=== PATIENT | female | born 1965 | race American Indian/Alaskan Native ===

== ENCOUNTER 2018-01-12 23:20 | Inpatient (IN) | payer MEDICARE ==
[2018-01-13] MEDS ORDERED: NACL 0.9% 1000 ML IV ONE (00:05)
--- NOTE | 2018-01-13 00:10 | Emergency Department Report ---
HPI - General Chief Complaint: Dyspnea/Respdistress Time Seen by Provider: 01/13/18 00:03 - HPI HPI: Room 3 The patient is a 52-year-old female presenting with a chief complaint of shortness of breath. The patient states she's had suicidal ideation since yesterday and discharged for hallucinations telling her that they're to kill her. Patient denies any active attempt to state that her plan was for herself over bridge. [facility] when she began to feel short of breath and was found to be hypoxic at 72% on room air. The patient states she has a history of COPD and is normally on 2-3 L O2 at all times. Patient denies any history of fever or pain Location: Lungs Duration: [See above] Quality: Shortness of breath Severity: Moderate Modifying factors: [see above] Context: [see above] Mode of transportation: [not driving] ED Past Medical Hx - Past Medical History Previous Medical History?: Yes Hx Hypertension: Yes Hx COPD: Yes Hx HIV: Yes Additional medical history: Hep c - Surgical History Past Surgical History?: Yes Hx Cholecystectomy: Yes Additional Surgical History: Hysterectomy - Family History Family history: no significant - Social History Smoking Status: Current Every Day Smoker (4 cigarettes daily) Substance Use Type: None ED Review of Systems ROS: Stated complaint: GISELLA Other details as noted in HPI Constitutional: denies: fever Eyes: denies: eye pain ENT: denies: throat pain Respiratory: shortness of breath Cardiovascular: denies: chest pain Endocrine: denies: unexplained weight loss Gastrointestinal: denies: abdominal pain Genitourinary: denies: dysuria Musculoskeletal: denies: back pain Skin: denies: change in color Neurological: denies: headache Psychiatric: suicidal thoughts Physical Exam - Physical Exam Vital Signs: Vital Signs 01/12/18 23:49 Temperature 98.7 F Pulse Rate 106 H Respiratory 25 H Rate Blood Pressure 62/33 Blood Pressure 62/33 [Left] O2 Sat by Pulse 95 Oximetry Physical Exam: GENERAL: The patient is well-developed well-nourished female lying on stretcher not appearing to be in acute distress. [] HEENT: Normocephalic. Atraumatic. Extraocular motions are intact. Patient has moist mucous membranes. NECK: Supple. Trachea midline CHEST/LUNGS: Clear to auscultation. There is no respiratory distress noted. HEART/CARDIOVASCULAR: Regular. There is no tachycardia. There is no gallop rub or murmur. ABDOMEN: Abdomen is soft, nontender. Patient has normal bowel sounds. There is no abdominal distention. SKIN: There is no rash. There is no edema. There is no diaphoresis. NEURO: The patient is awake, alert, and oriented. The patient is cooperative. The patient has normal speech MUSCULOSKELETAL: There is no evidence of acute injury. ED Course Vital Signs 01/12/18 23:49 Temperature 98.7 F Pulse Rate 106 H Respiratory 25 H Rate Blood Pressure 62/33 Blood Pressure 62/33 [Left] O2 Sat by Pulse 95 Oximetry ED Medical Decision Making - Lab Data Result diagrams: 01/13/18 00:06 01/13/18 00:06 Laboratory Tests 01/12/18 01/13/18 01/13/18 01:05 00:06 00:06 WBC 2.5 L RBC 3.98 Hgb 12.7 Hct 37.2 MCV 93 MCH 32 MCHC 34 RDW 18.7 H Plt Count 92 L Lymph % (Auto) 22.8 [place] % (Auto) 10.5 H Eos % (Auto) 1.0 Baso % (Auto) 0.7 Lymph # 0.6 L [place] # 0.3 Eos # 0.0 Baso # 0.0 Seg Neutrophils % 65.0 Seg Neutrophils # 1.6 L D-Dimer POC ABG pH POC ABG pCO2 POC ABG pO2 POC ABG HCO3 POC ABG Total CO2 POC ABG O2 Sat POC ABG Base Excess FiO2 Sodium 137 Potassium 3.3 L Chloride 101.8 Carbon Dioxide 18 L Anion Gap 21 BUN 17 Creatinine 1.2 Estimated GFR 57 BUN/Creatinine Ratio 14 Glucose 150 H Lactic Acid Calcium 9.2 Total Creatine Kinase CK-MB (CK-2) CK-MB (CK-2) Rel Index Troponin T Urine Bilirubin Neg Urine RBC (Auto) 1.0 U Epithel Cells (Auto) < 1.0 01/13/18 01/13/18 01/13/18 00:20 00:20 00:20 WBC RBC Hgb Hct MCV MCH MCHC RDW Plt Count Lymph % (Auto) [place] % (Auto) Eos % (Auto) Baso % (Auto) Lymph # [place] # Eos # Baso # Seg Neutrophils % Seg Neutrophils # D-Dimer < 135.00 POC ABG pH POC ABG pCO2 POC ABG pO2 POC ABG HCO3 POC ABG Total CO2 POC ABG O2 Sat POC ABG Base Excess FiO2 Sodium Potassium Chloride Carbon Dioxide Anion Gap BUN Creatinine Estimated GFR BUN/Creatinine Ratio Glucose Lactic Acid 3.40 H* Calcium Total Creatine Kinase 59 CK-MB (CK-2) 1.3 CK-MB (CK-2) Rel Index 2.2 Troponin T < 0.010 Urine Bilirubin Urine RBC (Auto) U Epithel Cells (Auto) 01/13/18 01:32 WBC RBC Hgb Hct MCV MCH MCHC RDW Plt Count Lymph % (Auto) [place] % (Auto) Eos % (Auto) Baso % (Auto) Lymph # [place] # Eos # Baso # Seg Neutrophils % Seg Neutrophils # D-Dimer POC ABG pH 7.400 POC ABG pCO2 26.0 L POC ABG pO2 65 L POC ABG HCO3 16.1 POC ABG Total CO2 17 POC ABG O2 Sat 93 POC ABG Base Excess -9 FiO2 32 Sodium Potassium Chloride Carbon Dioxide Anion Gap BUN Creatinine Estimated GFR BUN/Creatinine Ratio Glucose Lactic Acid Calcium Total Creatine Kinase CK-MB (CK-2) CK-MB (CK-2) Rel Index Troponin T Urine Bilirubin Urine RBC (Auto) U Epithel Cells (Auto) - EKG Data -: EKG Interpreted by Me EKG shows normal: sinus rhythm Rate: normal - EKG Data When compared to previous EKG there are: previous EKG unavailable Interpretation: normal EKG - Differential Diagnosis COPD, PE, sepsis, dehydration Critical care attestation.: If time is entered above; I have spent that time in minutes in the direct care of this critically ill patient, excluding procedure time. ED Disposition Clinical Impression: Hypotension, Suicidal ideation, HIV infection Disposition: DC-09 OP ADMIT IP TO THIS HOSP Is pt being admited?: Yes Does the pt Need Aspirin: No Condition: Fair Time of Disposition: 02:32 (hospitalist paged Dr Alfonso))
[2018-01-13 00:28] LABS: Basophils % (Auto) 0.7 % (0.0-1.8); Hematocrit 37.2 % (30.3-42.9); Hemoglobin 12.7 gm/dl (10.1-14.3); Lymphocytes # (Auto) 0.6 K/mm3 (1.2-5.4); Lymphocytes % (Auto) 22.8 % (13.4-35.0); Mean Corpuscular HGB Conc 34 % (30-34); Mean Corpuscular Hemoglobin 32 pg (28-32); Mean Corpuscular Volume 93 fl (79-97); Monocytes # (Auto) 0.3 K/mm3 (0.0-0.8); Monocytes % (Auto) 10.5 % (0.0-7.3); Red Blood Count 3.98 M/mm3 (3.65-5.03); Red Cell Distribution Width 18.7 % (13.2-15.2)
[2018-01-13 00:30] LABS: Platelet Count 92 K/mm3 (140-440)
[2018-01-13 00:44] LABS: Calcium 9.2 mg/dL (8.4-10.2)
--- NOTE | 2018-01-13 01:07 | XRay Report ---
FINAL REPORT PROCEDURE: XR CHEST 1V AP TECHNIQUE: Chest radiograph anteroposterior view. CPT 11910 HISTORY: shortness of breath COMPARISON: No prior studies are available for comparison. FINDINGS: Heart: Normal. Mediastinum/Vessels: Normal. Lungs/Pleural space: Normal. Bony thorax: No acute osseous abnormality. Life support devices: None. IMPRESSION: No acute cardiopulmonary abnormality.
[2018-01-13 01:18] LABS: Creatine Kinase MB 1.3 ng/mL (0.0-4.0)
[2018-01-13 02:27] LABS: Bilirubin,Urine NEG (Negative); Blood,Urine NEG (Negative); Color,Urine Yellow (Yellow); Protein,Urine <15 mg/dL mg/dL (Negative); Urobilinogen,Urine < 2.0 mg/dL (<2.0); WBC,Urine < 1.0 /HPF (0.0-6.0)
[2018-01-13 02:34] LABS: Amphetamine Screen,Urine PRESUMPTIVE NEGATIVE; Benzodiazepines Screen,Urine PRESUMPTIVE NEGATIVE; Cannabinoid Screen,Urine PRESUMPTIVE NEGATIVE; Cocaine Screen,Urine PRESUMPTIVE NEGATIVE; Methadone Screen,Urine PRESUMPTIVE NEGATIVE; Opiate Screen,Urine PRESUMPTIVE NEGATIVE
[2018-01-13] MEDS ORDERED: NACL 0.9% 1000 ML 1,000 ML IV ONE (03:17)
[2018-01-13] MEDS ORDERED: ZOFRAN IV PRN (04:02)
[2018-01-13] MEDS ORDERED: SODIUM CHLORIDE FLUSH SYRINGE 10 ML IV PRN (04:02)
[2018-01-13] MEDS ORDERED: TYLENOL PO PRN (04:02)
--- NOTE | 2018-01-13 04:24 | History and Physical Report ---
History of Present Illness Date of examination: 01/13/18 Chief complaint: Patient was transferred from [facility] facility as she was found to be hypoxic History of present illness: 52 year-old white female with history of HIV positive, COPD, depression, hypertension was brought into the ED with history of hypoxia, and was noted to be hypotensive. She is oxygen dependent for her COPD and apparently was not on oxygen at the psychiatric facility. She was given 2 L of normal saline bolus and she was still found to be borderline hypotensive with BP systolic in the mid 80s. Her lactic acid level was also elevated. She is being admitted for possible sepsis and hypotension. She is alert and oriented, she feels cold but denies any fever or chills weight loss or shortness of breath at this time. She does have some dry cough denies chest pain nausea vomiting or abdominal pain Past History Past Medical History: COPD, HIV/AIDS, hypertension, other (depression and suicidal ideations) Past Surgical History: cholecystectomy, hysterectomy Social history: smoking. denies: alcohol abuse Family history: diabetes, hypertension Medications and Allergies Allergies Allergy/AdvReac Type Severity Reaction Status Date / Time No Known Allergies Allergy Unverified 01/12/18 23:56 Home Medications Medication Instructions Recorded Confirmed Last Taken Type Lisinopril/Hydrochlorothiazide 1 tab PO QDAY 01/13/18 01/13/18 Unknown History [Zestoretic 20-12.5 mg] Quetiapine Fumarate [SEROquel] 100 mg PO QHS 01/13/18 01/13/18 Unknown History Sertraline HCl [Zoloft] 100 mg PO QAM 01/13/18 01/13/18 Unknown History Venlafaxine HCl 75 mg PO QAM 01/13/18 01/13/18 Unknown History hydrOXYZINE PAMOATE [Hydroxyzine 25 mg PO TID 01/13/18 01/13/18 Unknown History Pamoate] Active Meds: Active Medications Acetaminophen (Tylenol) 650 mg PO Q4H PRN PRN Reason: Pain MILD(1-3)/Fever >100.5/DELVALLE Albuterol/Ipratropium (Duoneb *Not For Prn Use*) 1 ampul IH Q6HRT [facility] Sodium Chloride (Nacl 0.9% 1000 Ml) 1,000 mls @ 150 mls/hr IV ONCE ONE Stop: 01/13/18 09:56 Last Admin: 01/13/18 03:26 Dose: 150 mls/hr Cefepime HCl (Maxipime/Ns 2 Gm/100 Ml) 2 gm in 100 mls @ 200 mls/hr IV Q12HR [facility]; Protocol Sodium Chloride (Nacl 0.9% 1000 Ml) 1,000 mls @ 125 mls/hr IV DIRECT [facility] Miscellaneous Medication (Quetiapine Fumarate [Seroquel]) 100 mg PO QHS [facility] Ondansetron HCl (Zofran) 4 mg IV Q8H PRN PRN Reason: Nausea And Vomiting Sertraline HCl (Zoloft) 100 mg PO QAM [facility] Sodium Chloride (Sodium Chloride Flush Syringe 10 Ml) 10 ml IV BID [facility] Sodium Chloride (Sodium Chloride Flush Syringe 10 Ml) 10 ml IV PRN PRN PRN Reason: LINE FLUSH Review of Systems Constitutional: no weight loss, no fever, no chills, no sweats, no weakness Ears, nose, mouth and throat: no dysphagia, no sore throat, no headache Cardiovascular: high blood pressure, no chest pain, no palpitations, no syncope , no shortness of breath Respiratory: cough, no shortness of breath Gastrointestinal: no abdominal pain, no nausea, no vomiting, no diarrhea, no melena Genitourinary Female: no dysuria, no stress incontinence, no urge incontinence Rectal: no pain Musculoskeletal: no neck pain, no low back pain Integumentary: no rash Neurological: no head injury, no seizures, no syncope Psychiatric: depression, no anxiety Exam - Constitutional Vitals: Temp Pulse Resp BP Pulse Ox 98.7 F 94 H 22 87/52 100 01/12/18 23:49 01/13/18 02:30 01/13/18 02:30 01/13/18 02:30 01/13/18 02:30 General appearance: Present: no acute distress - EENT Eyes: Present: PERRL, EOM intact ENT: hearing intact, clear oral mucosa - Neck Neck: Present: supple, normal ROM. Absent: masses or JVD - Respiratory Respiratory effort: normal Respiratory: bilateral: CTA, diminished, negative: rhonchi, wheezing - Cardiovascular Rhythm: regular Heart Sounds: Present: S1 & S2 - Extremities Extremities: No edema - Abdominal General gastrointestinal: Present: soft, non-tender. Absent: hepatomegaly, splenomegaly Female genitourinary: Present: deferred - Rectal Rectal Exam: deferred - Integumentary Integumentary: Present: clear - Musculoskeletal Musculoskeletal: strength equal bilaterally - Psychiatric Psychiatric: appropriate mood/affect, depressed - Neurologic Neurologic: no focal deficits, moves all extremities Results - Labs CBC & Chem 7: 01/13/18 00:06 01/13/18 00:06 Labs: Abnormal lab results 01/13/18 01/13/18 01/13/18 Range/Units 00:06 00:06 00:20 WBC 2.5 L (4.5-11.0) K/mm3 RDW 18.7 H (13.2-15.2) % Plt Count 92 L (140-440) K/mm3 [place] % (Auto) 10.5 H (0.0-7.3) % Lymph # 0.6 L (1.2-5.4) K/mm3 Seg Neutrophils # 1.6 L (1.8-7.7) K/mm3 POC ABG pCO2 (35-45) POC ABG pO2 (80-105) Potassium 3.3 L (3.6-5.0) mmol/L Carbon Dioxide 18 L (22-30) mmol/L Glucose 150 H (65-100) mg/dL Lactic Acid 3.40 H* (0.7-2.0) mmol/L 01/13/18 Range/Units 01:32 WBC (4.5-11.0) K/mm3 RDW (13.2-15.2) % Plt Count (140-440) K/mm3 [place] % (Auto) (0.0-7.3) % Lymph # (1.2-5.4) K/mm3 Seg Neutrophils # (1.8-7.7) K/mm3 POC ABG pCO2 26.0 L (35-45) POC ABG pO2 65 L (80-105) Potassium (3.6-5.0) mmol/L Carbon Dioxide (22-30) mmol/L Glucose (65-100) mg/dL Lactic Acid (0.7-2.0) mmol/L Assessment and Plan - Patient Problems (1) Sepsis Current Visit: Yes Status: Suspected Plan to address problem: Suspected sepsis Started on sepsis protocol Blood cultures obtained IV fluids Empiric antibiotic with cefepime Please consult ID in a.m. (2) Depression Current Visit: Yes Status: Chronic Qualifiers: Depression Type: major depressive disorder Major depression recurrence: recurrent Psychotic features: with psychotic features Plan to address problem: Continue antidepressant and antipsychotic medication Consultation with psychiatry (3) COPD (chronic obstructive pulmonary disease) Current Visit: Yes Status: Chronic Qualifiers: COPD type: emphysema Emphysema type: panlobular Qualified Code(s): J43.1 - Panlobular emphysema Plan to address problem: Start on nebulizer treatments with DuoNeb solution (4) Hypoxia Current Visit: Yes Status: Chronic Plan to address problem: Patient is O2 dependent Continue oxygen via nasal cannula with 3 L/m (5) Thrombocytopenia Current Visit: Yes Status: Acute Plan to address problem: Most likely related to her HIV infection We will hold off on DVT prophylaxis with heparin SCDs Monitor platelets (6) Leucopenia Current Visit: Yes Status: Acute Plan to address problem: Baseline is not known Likely secondary to her HIV (7) Hypokalemia Current Visit: Yes Status: Acute (8) HIV infection Current Visit: Yes Status: Chronic Plan to address problem: Reviewing her home medications she is not on any medications for her HIV infection Please call ID consult in the morning (9) Hypotension Current Visit: Yes Status: Acute Plan to address problem: Unclear etiology Rule out secondary to sepsis Rule out medication induced Patient is on antihypertensive medication IV fluids with normal saline Hold off on her home BP medications
[2018-01-13] MEDS ORDERED: K-DUR PO ONE (04:29)
[2018-01-13] MEDS ORDERED: ZOLOFT ONE (10:03)
[2018-01-13] MEDS: SODIUM CHLORIDE FLUSH SYRINGE 10 ML IV SCH ×2 (10:08→21:23)
[2018-01-13] MEDS: ZOLOFT PO SCH (10:11)
[2018-01-13] MEDS: MAXIPIME/NS 2 GM/100 ML 2 GM/100 ML BAG IV SCH ×2 (10:12→21:22)
[2018-01-13] MEDS ORDERED: DUONEB *Not for PRN Use IH ONE (10:22)
[2018-01-13] MEDS ORDERED: NON-FORMULARY (Lisinopril/Hydrochlorothiazide [Zestoretic 20-12.5 Mg] 1 TAB) PO SCH (11:00)
--- NOTE | 2018-01-13 11:19 | Event Note ---
Date: 01/13/18 Patient who was admitted today was seen and evaluated. Remains stable. Continue with the present management plan per admitting doctor.
[2018-01-13] MEDS: HCTZ PO SCH (13:12)
[2018-01-13] MEDS: ZESTRIL PO SCH (13:13)
[2018-01-13] MEDS ORDERED: KCL 10MEQ/100ML 10 MEQ/100 ML BAG IV ONE ×2 (13:14→13:38)
[2018-01-13] MEDS ORDERED: NACL 0.9% 1000 ML 1,000 ML ONE (13:15)
[2018-01-13] MEDS: DUONEB *Not for PRN Use IH SCH ×3 (13:32→19:57)
[2018-01-13] MEDS: NACL 0.9% 1000 ML 1,000 ML IV SCH ×3 (13:43→19:50)
[2018-01-13] MEDS: KCL 10MEQ/100ML 10 MEQ/100 ML BAG IV SCH ×2 (13:43→16:59)
[2018-01-13] MEDS ORDERED: KCL 10MEQ/100ML 10 MEQ/100 ML BAG IV SCH (17:00)
--- NOTE | 2018-01-13 19:10 | Consultation ---
History of Present Illness Consult date: 01/13/18 History of present illness: PULMONARY CONSULTATION DR. OLSEN thank you for asking us to participate in the care of this patient. This is 52 year old white female with history of HIV Positive, COPD, hypertension and depression admitted to the hospital through emergency room with hypotension and hypoxia. Patient placed on 2 litres O2 and was given I/V fluids.Patients O2 saturation and blood pressure went up.On admission, patient complained dizziness.No dizziness at this time. Patient has some non productive cough especially during night time.No complaint of shortness of breath, fever or chills at this time. Patient has history of smoking 4 cigarets a day for 40 years. Counselled her to stop smoking.Use to drink alcohol and used drugs. She said she is not doing it now.Denies allergies to the medications. 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 Past History Past Medical History: COPD, HIV/AIDS, hypertension, other (depression and suicidal ideations) Past Surgical History: cholecystectomy, hysterectomy Social history: smoking. denies: alcohol abuse Family history: diabetes, hypertension Medications and Allergies Allergies Allergy/AdvReac Type Severity Reaction Status Date / Time No Known Allergies Allergy Unverified 01/12/18 23:56 Home Medications Medication Instructions Recorded Confirmed Last Taken Type Lisinopril/Hydrochlorothiazide 1 tab PO QDAY 01/13/18 01/13/18 Unknown History [Zestoretic 20-12.5 mg] Quetiapine Fumarate [SEROquel] 100 mg PO QHS 01/13/18 01/13/18 Unknown History Sertraline HCl [Zoloft] 100 mg PO QAM 01/13/18 01/13/18 Unknown History Venlafaxine HCl 75 mg PO QAM 01/13/18 01/13/18 Unknown History hydrOXYZINE PAMOATE [Hydroxyzine 25 mg PO TID 01/13/18 01/13/18 Unknown History Pamoate] Active Meds: Active Medications Acetaminophen (Tylenol) 650 mg PO Q4H PRN PRN Reason: Pain MILD(1-3)/Fever >100.5/DELVALLE Albuterol/Ipratropium (Duoneb *Not For Prn Use*) 1 ampul IH Q6HRT ARLENE Last Admin: 01/13/18 18:53 Dose: Not Given Hydrochlorothiazide (Hctz) 12.5 mg PO QDAY [facility] Last Admin: 01/13/18 13:12 Dose: Not Given Cefepime HCl (Maxipime/Ns 2 Gm/100 Ml) 2 gm in 100 mls @ 200 mls/hr IV Q12HR [facility]; Protocol Last Admin: 01/13/18 10:12 Dose: 200 mls/hr Sodium Chloride (Nacl 0.9% 1000 Ml) 1,000 mls @ 125 mls/hr IV DIRECT [facility] Last Admin: 01/13/18 18:12 Dose: 125 mls/hr Lisinopril (Zestril) 20 mg PO QDAY [facility] Last Admin: 01/13/18 13:13 Dose: Not Given Ondansetron HCl (Zofran) 4 mg IV Q8H PRN PRN Reason: Nausea And Vomiting Quetiapine Fumarate (Seroquel) 100 mg PO QHS [facility] Sertraline HCl (Zoloft) 100 mg PO QAM [facility] Last Admin: 01/13/18 10:11 Dose: 100 mg Sodium Chloride (Sodium Chloride Flush Syringe 10 Ml) 10 ml IV BID [facility] Last Admin: 01/13/18 10:08 Dose: 10 ml Sodium Chloride (Sodium Chloride Flush Syringe 10 Ml) 10 ml IV PRN PRN PRN Reason: LINE FLUSH Venlafaxine HCl (Effexor) 75 mg PO QAM [facility] Review of Systems All systems: negative Physical Examination Vital signs: Vital Signs Pulse Resp BP Pulse Ox 92 H 22 74/37 91 01/12/18 23:45 01/12/18 23:45 01/12/18 23:45 01/12/18 23:45 General appearance: no acute distress, alert Eyes: non-icteric ENT: oropharynx moist Neck: supple, no JVD Effort: normal Ascultation: Bilateral: diminished breath sounds, other (Prolonged expiratory diseases.) Cardiovascular: regular rate and rhythm Gastrointestinal: normoactive bowel sounds, soft, non-tender Integumentary: normal Extremities: no cyanosis, no edema Musculoskeletal: no deformities normal mental status, non-focal exam, pupils equal and round, CN II-XII normal anxious Results - Laboratory Findings CBC and BMP: 01/13/18 00:06 01/13/18 00:06 ABG POC ABG pH 7.400 (7.35-7.45) 01/13/18 01:32 POC ABG pCO2 26.0 (35-45) L 01/13/18 01:32 POC ABG pO2 65 (80-105) L 01/13/18 01:32 POC ABG HCO3 16.1 01/13/18 01:32 POC ABG Total CO2 17 01/13/18 01:32 POC ABG O2 Sat 93 01/13/18 01:32 PT/INR, D-dimer D-Dimer < 135.00 ng/mlDDU (0-234) 01/13/18 00:20 Abnormal lab findings: Abnormal Labs 01/13/18 01/13/18 01/13/18 00:06 00:06 00:20 WBC 2.5 L RDW 18.7 H Plt Count 92 L [place] % (Auto) 10.5 H Lymph # 0.6 L Seg Neutrophils # 1.6 L POC ABG pCO2 POC ABG pO2 Potassium 3.3 L Carbon Dioxide 18 L Glucose 150 H Lactic Acid 3.40 H* 01/13/18 01:32 WBC RDW Plt Count [place] % (Auto) Lymph # Seg Neutrophils # POC ABG pCO2 26.0 L POC ABG pO2 65 L Potassium Carbon Dioxide Glucose Lactic Acid - Diagnostic Findings Chest x-ray: report reviewed (No acute cardiopulmonary process.), image reviewed Assessment and Plan This is 52 year old white female with history of HIV Positive, COPD, hypertension and depression admitted to the hospital through emergency room with hypotension and hypoxia. Patient placed on 2 litres O2 and was given I/V fluids.Patients O2 saturation and blood pressure went up.On admission, patient complained dizziness.No dizziness at this time. Patient has some non productive cough especially during night time.No complaint of shortness of breath, fever or chills at this time. Patient has history of smoking 4 cigarets a day for 40 years. Counselled her to stop smoking.Use to drink alcohol and used drugs. She said she is not doing it now.Denies allergies to the medications. 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 - Patient Problems (1) COPD (chronic obstructive pulmonary disease) Current Visit: Yes Status: Chronic Qualifiers: COPD type: emphysema Emphysema type: panlobular Qualified Code(s): J43.1 - Panlobular emphysema Plan to address problem: O2 2 litres via nasal canula. Albuterol/atrovent aerosol treatments q 6 hours. (2) HIV infection Current Visit: Yes Status: Chronic Plan to address problem: Recommend to consult infectious diseases. (3) Hypoxia Current Visit: Yes Status: Chronic Plan to address problem: Supplemental O2. 2 litres via nasal canula. (4) Sepsis Current Visit: Yes Status: Suspected Plan to address problem: Patient is on cefepime.
[2018-01-14] MEDS ORDERED: PROVENTIL IH PRN (01:21)
[2018-01-14] MEDS: NACL 0.9% 1000 ML 1,000 ML IV SCH ×3 (04:29→23:02)
[2018-01-14] MEDS: DUONEB *Not for PRN Use IH SCH ×3 (07:39→19:25)
[2018-01-14 08:35] LABS: Hematocrit 33.4 % (30.3-42.9); Hemoglobin 11.1 gm/dl (10.1-14.3); Mean Corpuscular HGB Conc 33 % (30-34); Mean Corpuscular Hemoglobin 31 pg (28-32); Mean Corpuscular Volume 94 fl (79-97); Red Blood Count 3.55 M/mm3 (3.65-5.03); Red Cell Distribution Width 18.7 % (13.2-15.2)
[2018-01-14 08:39] LABS: Platelet Count 80 K/mm3 (140-440)
[2018-01-14 08:54] LABS: BUN/Creatinine Ratio 14; Blood Urea Nitrogen 11 mg/dL (7-17); Calcium 8.3 mg/dL (8.4-10.2); Hemolysis Index 10
[2018-01-14] MEDS: EFFEXOR PO SCH (10:00)
[2018-01-14 10:04] LABS: Anisocytosis 1+; Basophils % (Manual) 0 % (0.0-1.8); Platelet Estimate Cons; Total Cells Counted 100
[2018-01-14] MEDS: MAXIPIME/NS 2 GM/100 ML 2 GM/100 ML BAG IV SCH ×2 (10:33→23:02)
[2018-01-14] MEDS: ZESTRIL PO SCH (10:34)
[2018-01-14] MEDS: ZOLOFT PO SCH (10:34)
[2018-01-14] MEDS: HCTZ PO SCH (10:34)
[2018-01-14] MEDS: SODIUM CHLORIDE FLUSH SYRINGE 10 ML IV SCH ×2 (10:35→23:03)
--- NOTE | 2018-01-14 13:18 | Progress Note ---
Assessment and Plan Assessment and plan: --Suicidal thoughts and ideation; Suicidal watch, 1013 status Management per psych, psych following Possible discharge to inpatient psych facility once medically stable --Sepsis: Continue empiric antibiotics, follow cultures ID evaluation if needed --Leukopenia; probably secondary to sepsis As well as HIV-AIDS, closely monitor, continue antibiotics Consider hematology consult if needed --Hypotension, continue IV fluids and supportive care, increase oral fluids --Thrombocytopenia; probably secondary to underlying disease process Closely monitor, hematology as needed --Lactic acidosis; probably secondary to metabolic acidosis as well as sepsis Lactic acid levels within normal limits --Hypokalemia; corrected --DVT prophylaxis; no pharmacologic anticoagulation in view of thrombocytopenia , continue SCDs Continue 1013 status/suicidal watch Closely monitor the patient and adjust the management as needed History Interval history: Patient seen and examined medical records reviewed No new events reported by the nursing staff Patient feels better she denies chest pain or shortness of breath Vital signs reviewed Blood pressures on the lower range Patient continues to have suicidal thoughts and ideation 1013 status, psych following Hospitalist Physical - Constitutional Vitals: Temp Pulse Resp BP Pulse Ox 98.1 F 83 18 101/66 95 01/14/18 05:11 01/14/18 05:11 01/14/18 05:11 01/14/18 05:11 01/14/18 07:39 General appearance: Present: no acute distress, well-nourished - EENT Eyes: Present: PERRL, EOM intact - Neck Neck: Present: supple, normal ROM - Respiratory Respiratory effort: normal Respiratory: bilateral: diminished, negative: rales, rhonchi, wheezing - Cardiovascular Rhythm: regular Heart Sounds: Present: S1 & S2 - Extremities Extremities: no ischemia, No edema - Abdominal General gastrointestinal: soft, non-tender, non-distended, normal bowel sounds - Integumentary Integumentary: Present: clear, warm - Psychiatric Psychiatric: appropriate mood/affect, cooperative - Neurologic Neurologic: CNII-XII intact, moves all extremities Results - Labs CBC & Chem 7: 01/14/18 07:44 01/14/18 07:44 Labs: Laboratory Last Values WBC 1.8 K/mm3 (4.5-11.0) L* 01/14/18 07:44 RBC 3.55 M/mm3 (3.65-5.03) L 01/14/18 07:44 Hgb 11.1 gm/dl (10.1-14.3) 01/14/18 07:44 Hct 33.4 % (30.3-42.9) 01/14/18 07:44 MCV 94 fl (79-97) 01/14/18 07:44 MCH 31 pg (28-32) 01/14/18 07:44 MCHC 33 % (30-34) 01/14/18 07:44 RDW 18.7 % (13.2-15.2) H 01/14/18 07:44 Plt Count 80 K/mm3 (140-440) L 01/14/18 07:44 Lymph % (Auto) 22.8 % (13.4-35.0) 01/13/18 00:06 [place] % (Auto) 10.5 % (0.0-7.3) H 01/13/18 00:06 Eos % (Auto) 1.0 % (0.0-4.3) 01/13/18 00:06 Baso % (Auto) 0.7 % (0.0-1.8) 01/13/18 00:06 Lymph # 0.6 K/mm3 (1.2-5.4) L 01/13/18 00:06 [place] # 0.3 K/mm3 (0.0-0.8) 01/13/18 00:06 Eos # 0.0 K/mm3 (0.0-0.4) 01/13/18 00:06 Baso # 0.0 K/mm3 (0.0-0.1) 01/13/18 00:06 Add Manual Diff Complete 01/14/18 07:44 Total Counted 100 01/14/18 07:44 Seg Neutrophils % 65.0 % (40.0-70.0) 01/13/18 00:06 Seg Neuts % (Manual) 65.0 % (40.0-70.0) 01/14/18 07:44 Band Neutrophils % 0 % 01/14/18 07:44 Lymphocytes % (Manual) 26.0 % (13.4-35.0) 01/14/18 07:44 Reactive Lymphs % (Man) 0 % 01/14/18 07:44 Monocytes % (Manual) 8.0 % (0.0-7.3) H 01/14/18 07:44 Eosinophils % (Manual) 1.0 % (0.0-4.3) 01/14/18 07:44 Basophils % (Manual) 0 % (0.0-1.8) 01/14/18 07:44 Metamyelocytes % 0 % 01/14/18 07:44 Myelocytes % 0 % 01/14/18 07:44 Promyelocytes % 0 % 01/14/18 07:44 Blast Cells % 0 % 01/14/18 07:44 Nucleated RBC % Not Reportable 01/14/18 07:44 Seg Neutrophils # 1.6 K/mm3 (1.8-7.7) L 01/13/18 00:06 Seg Neutrophils # Man 1.2 K/mm3 (1.8-7.7) L 01/14/18 07:44 Band Neutrophils # 0.0 K/mm3 01/14/18 07:44 Lymphocytes # (Manual) 0.5 K/mm3 (1.2-5.4) L 01/14/18 07:44 Abs React Lymphs (Man) 0.0 K/mm3 01/14/18 07:44 Monocytes # (Manual) 0.1 K/mm3 (0.0-0.8) 01/14/18 07:44 Eosinophils # (Manual) 0.0 K/mm3 (0.0-0.4) 01/14/18 07:44 Basophils # (Manual) 0.0 K/mm3 (0.0-0.1) 01/14/18 07:44 Metamyelocytes # 0.0 K/mm3 01/14/18 07:44 Myelocytes # 0.0 K/mm3 01/14/18 07:44 Promyelocytes # 0.0 K/mm3 01/14/18 07:44 Blast Cells # 0.0 K/mm3 01/14/18 07:44 WBC Morphology Not Reportable 01/14/18 07:44 Hypersegmented Neuts Not Reportable 01/14/18 07:44 Hyposegmented Neuts Not Reportable 01/14/18 07:44 Hypogranular Neuts Not Reportable 01/14/18 07:44 Smudge Cells Not Reportable 01/14/18 07:44 Toxic Granulation Not Reportable 01/14/18 07:44 Toxic Vacuolation Not Reportable 01/14/18 07:44 Dohle Bodies Not Reportable 01/14/18 07:44 Pelger-Huet Anomaly Not Reportable 01/14/18 07:44 Fredy Rods Not Reportable 01/14/18 07:44 Platelet Estimate Cons 01/14/18 07:44 Clumped Platelets Not Reportable 01/14/18 07:44 Plt Clumps, EDTA Not Reportable 01/14/18 07:44 Large Platelets Not Reportable 01/14/18 07:44 Giant Platelets Not Reportable 01/14/18 07:44 Platelet Satelliting Not Reportable 01/14/18 07:44 Plt Morphology Comment Not Reportable 01/14/18 07:44 RBC Morphology Not Reportable 01/14/18 07:44 Dimorphic RBCs Not Reportable 01/14/18 07:44 Polychromasia Not Reportable 01/14/18 07:44 Hypochromasia Not Reportable 01/14/18 07:44 Poikilocytosis Not Reportable 01/14/18 07:44 Anisocytosis 1+ 01/14/18 07:44 Microcytosis Not Reportable 01/14/18 07:44 Macrocytosis Not Reportable 01/14/18 07:44 Spherocytes Not Reportable 01/14/18 07:44 Pappenheimer Bodies Not Reportable 01/14/18 07:44 Sickle Cells Not Reportable 01/14/18 07:44 Target Cells Not Reportable 01/14/18 07:44 Tear Drop Cells Not Reportable 01/14/18 07:44 Ovalocytes Not Reportable 01/14/18 07:44 Helmet Cells Not Reportable 01/14/18 07:44 Pa-[place] Bodies Not Reportable 01/14/18 07:44 [place] Rings Not Reportable 01/14/18 07:44 [place] Cells Not Reportable 01/14/18 07:44 Bite Cells Not Reportable 01/14/18 07:44 Crenated Cell Not Reportable 01/14/18 07:44 Elliptocytes Not Reportable 01/14/18 07:44 Acanthocytes (Spur) Not Reportable 01/14/18 07:44 Rouleaux Not Reportable 01/14/18 07:44 Hemoglobin C Crystals Not Reportable 01/14/18 07:44 Schistocytes Not Reportable 01/14/18 07:44 Malaria parasites Not Reportable 01/14/18 07:44 Adriel Bodies Not Reportable 01/14/18 07:44 Hem Pathologist Commnt No 01/14/18 07:44 D-Dimer < 135.00 ng/mlDDU (0-234) 01/13/18 00:20 POC ABG pH 7.400 (7.35-7.45) 01/13/18 01:32 POC ABG pCO2 26.0 (35-45) L 01/13/18 01:32 POC ABG pO2 65 (80-105) L 01/13/18 01:32 POC ABG HCO3 16.1 01/13/18 01:32 POC ABG Total CO2 17 01/13/18 01:32 POC ABG O2 Sat 93 01/13/18 01:32 POC ABG Base Excess -9 01/13/18 01:32 FiO2 32 % 01/13/18 01:32 Sodium 140 mmol/L (137-145) 01/14/18 07:44 Potassium 4.6 mmol/L (3.6-5.0) D 01/14/18 07:44 Chloride 111.7 mmol/L (98-107) H 01/14/18 07:44 Carbon Dioxide 17 mmol/L (22-30) L 01/14/18 07:44 Anion Gap 16 mmol/L 01/14/18 07:44 BUN 11 mg/dL (7-17) 01/14/18 07:44 Creatinine 0.8 mg/dL (0.7-1.2) 01/14/18 07:44 Estimated GFR > 60 ml/min 01/14/18 07:44 BUN/Creatinine Ratio 14 % 01/14/18 07:44 Glucose 81 mg/dL (65-100) 01/14/18 07:44 Lactic Acid 0.70 mmol/L (0.7-2.0) 01/13/18 05:06 Calcium 8.3 mg/dL (8.4-10.2) L 01/14/18 07:44 Total Creatine Kinase 59 units/L (30-135) 01/13/18 00:20 CK-MB (CK-2) 1.3 ng/mL (0.0-4.0) 01/13/18 00:20 CK-MB (CK-2) Rel Index 2.2 (0-4) 01/13/18 00:20 Troponin T < 0.010 ng/mL (0.00-0.029) 01/13/18 00:20 Urine Color Yellow (Yellow) 01/12/18 01:05 Urine Turbidity Clear (Clear) 01/12/18 01:05 Urine pH 6.0 (5.0-7.0) 01/12/18 01:05 Ur Specific [place] 1.005 (1.003-1.030) 01/12/18 01:05 Urine Protein <15 mg/dl mg/dL (Negative) 01/12/18 01:05 Urine Glucose (UA) Neg mg/dL (Negative) 01/12/18 01:05 Urine Ketones Neg mg/dL (Negative) 01/12/18 01:05 Urine Blood Neg (Negative) 01/12/18 01:05 Urine Nitrite Neg (Negative) 01/12/18 01:05 Urine Bilirubin Neg (Negative) 01/12/18 01:05 Urine Urobilinogen < 2.0 mg/dL (<2.0) 01/12/18 01:05 Ur Leukocyte Esterase Neg (Negative) 01/12/18 01:05 Urine WBC (Auto) < 1.0 /HPF (0.0-6.0) 01/12/18 01:05 Urine RBC (Auto) 1.0 /HPF (0.0-6.0) 01/12/18 01:05 U Epithel Cells (Auto) < 1.0 /HPF (0-13.0) 01/12/18 01:05 Urine Opiates Screen Presumptive negative 01/12/18 01:05 Urine Methadone Screen Presumptive negative 01/12/18 01:05 Ur Barbiturates Screen Presumptive negative 01/12/18 01:05 Ur Phencyclidine Scrn Presumptive negative 01/12/18 01:05 Ur Amphetamines Screen Presumptive negative 01/12/18 01:05 U Benzodiazepines Scrn Presumptive negative 01/12/18 01:05 Urine Cocaine Screen Presumptive negative 01/12/18 01:05 U Marijuana (THC) Screen Presumptive negative 01/12/18 01:05 Drugs of Abuse Note Disclamer 01/12/18 01:05 Blood Type O POSITIVE 01/13/18 04:59 Antibody Screen Negative 01/13/18 04:59
--- NOTE | 2018-01-14 13:25 | Progress Note ---
Assessment and Plan This is 52 year old white female with history of HIV Positive, COPD, hypertension and depression admitted to the hospital through emergency room with hypotension and hypoxia. Patient placed on 2 litres O2 and was given I/V fluids.Patients O2 saturation and blood pressure went up.On admission, patient complained dizziness.No dizziness at this time. Patient has some non productive cough especially during night time.No complaint of shortness of breath, fever or chills at this time. Patient has history of smoking 4 cigarets a day for 40 years. Counselled her to stop smoking.Use to drink alcohol and used drugs. She said she is not doing it now.Denies allergies to the medications. 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 01/14/18 Patient alert, awake. Resting on 3 litres O2.O2 saturation 95%. No complaint of chest pain,shortness of breath or cough. - Patient Problems (1) COPD (chronic obstructive pulmonary disease) Current Visit: Yes Status: Chronic Qualifiers: COPD type: emphysema Emphysema type: panlobular Qualified Code(s): J43.1 - Panlobular emphysema Plan to address problem: O2 2 litres via nasal canula. Albuterol/atrovent aerosol treatments q 6 hours. (2) HIV infection Current Visit: Yes Status: Chronic Plan to address problem: Recommend to consult infectious diseases. (3) Hypoxia Current Visit: Yes Status: Chronic Plan to address problem: Supplemental O2. 2 litres via nasal canula. (4) Sepsis Current Visit: Yes Status: Suspected Plan to address problem: Patient is on cefepime. Subjective Date of service: 01/14/18 Interval history: Patient alert, awake. Resting on 3 litres O2.O2 saturation 95%. No complaint of chest pain,shortness of breath or cough. Objective Vital Signs - 12hr 01/14/18 01/14/18 05:11 07:39 Temperature 98.1 F Pulse Rate 83 Respiratory 18 Rate Blood Pressure 101/66 O2 Sat by Pulse 92 95 Oximetry Constitutional: no acute distress, alert Eyes: non-icteric ENT: oropharynx moist Neck: supple, no JVD Effort: normal Ascultation: Bilateral: diminished breath sounds, other (Prolonged expiratory diseases.) Cardiovascular: regular rate and rhythm Gastrointestinal: normoactive bowel sounds, soft, non-tender Integumentary: normal Extremities: no cyanosis, no edema Neurologic: normal mental status, non-focal exam, pupils equal and round, CN II- XII normal Psychiatric: anxious CBC and BMP: 01/14/18 07:44 01/14/18 07:44 ABG, PT/INR, D-dimer: ABG POC ABG pH 7.400 (7.35-7.45) 01/13/18 01:32 POC ABG pCO2 26.0 (35-45) L 01/13/18 01:32 POC ABG pO2 65 (80-105) L 01/13/18 01:32 POC ABG HCO3 16.1 01/13/18 01:32 POC ABG Total CO2 17 01/13/18 01:32 POC ABG O2 Sat 93 01/13/18 01:32 PT/INR, D-dimer D-Dimer < 135.00 ng/mlDDU (0-234) 01/13/18 00:20 Abnormal lab findings: Abnormal Labs 01/13/18 01/13/18 01/13/18 00:06 00:06 00:20 WBC 2.5 L RBC RDW 18.7 H Plt Count 92 L [place] % (Auto) 10.5 H Lymph # 0.6 L Monocytes % (Manual) Seg Neutrophils # 1.6 L Seg Neutrophils # Man Lymphocytes # (Manual) POC ABG pCO2 POC ABG pO2 Potassium 3.3 L Chloride Carbon Dioxide 18 L Glucose 150 H Lactic Acid 3.40 H* Calcium 01/13/18 01/14/18 01/14/18 01:32 07:44 07:44 WBC 1.8 L* RBC 3.55 L RDW 18.7 H Plt Count 80 L [place] % (Auto) Lymph # Monocytes % (Manual) 8.0 H Seg Neutrophils # Seg Neutrophils # Man 1.2 L Lymphocytes # (Manual) 0.5 L POC ABG pCO2 26.0 L POC ABG pO2 65 L Potassium Chloride 111.7 H Carbon Dioxide 17 L Glucose Lactic Acid Calcium 8.3 L Chest x-ray: report reviewed (No acute cardiopulmonary process.), image reviewed
[2018-01-15 06:21] LABS: Hematocrit 33.2 % (30.3-42.9); Mean Corpuscular HGB Conc 33 % (30-34); Mean Corpuscular Hemoglobin 31 pg (28-32); Mean Corpuscular Volume 94 fl (79-97); Red Blood Count 3.53 M/mm3 (3.65-5.03); Red Cell Distribution Width 18.6 % (13.2-15.2)
[2018-01-15 06:25] LABS: Platelet Count 85 K/mm3 (140-440)
[2018-01-15] MEDS ORDERED: NACL 0.9% 500 ML 500 ML IV ONE (06:42)
[2018-01-15 06:44] LABS: Alanine Aminotransferase 31 units/L (7-56); Albumin 3.2 g/dL (3.9-5); BUN/Creatinine Ratio 17; Blood Urea Nitrogen 12 mg/dL (7-17); Calcium 8.4 mg/dL (8.4-10.2); Hemolysis Index 2
[2018-01-15 07:10] LABS: Band Neutrophils # (Manual) 0.1 K/mm3; Basophils % (Manual) 0 % (0.0-1.8); Eosinophils % (Manual) 0 % (0.0-4.3); Total Cells Counted 100
[2018-01-15 07:12] LABS: Anisocytosis 1+; Platelet Estimate Consistent w Auto
[2018-01-15] MEDS: DUONEB *Not for PRN Use IH SCH ×3 (07:53→20:56)
--- NOTE | 2018-01-15 08:53 | Progress Note ---
Assessment and Plan Assessment and plan: --Hypotension, continue IV fluids and supportive care, increase oral fluids --Suicidal thoughts and ideation; Suicidal watch, 1013 status Management per psych, psych following Possible discharge to inpatient psych facility once medically stable --Sepsis: Continue empiric antibiotics, follow cultures ID evaluation if needed --Leukopenia; probably secondary to sepsis As well as HIV-AIDS, closely monitor, continue antibiotics Consider hematology consult if needed --Thrombocytopenia; probably secondary to underlying disease process Closely monitor, hematology as needed --Lactic acidosis; probably secondary to metabolic acidosis as well as sepsis Lactic acid levels within normal limits --Hypokalemia; corrected --DVT prophylaxis; no pharmacologic anticoagulation in view of thrombocytopenia , continue SCDs Continue 1013 status/suicidal watch Closely monitor the patient and adjust the management as needed History Interval history: Patient seen and examined medical records reviewed Looks and feels better, Complaints of hearing voices Vital signs reviewed Hospitalist Physical - Constitutional Vitals: Temp Pulse Resp BP Pulse Ox 98.3 F 93 H 18 84/45 97 01/15/18 05:17 01/15/18 08:12 01/15/18 08:12 01/15/18 05:17 01/15/18 08:05 General appearance: Present: no acute distress, well-nourished - EENT Eyes: Present: PERRL, EOM intact - Neck Neck: Present: supple, normal ROM - Respiratory Respiratory effort: normal Respiratory: bilateral: diminished, negative: rales, rhonchi, wheezing - Cardiovascular Rhythm: regular Heart Sounds: Present: S1 & S2 - Extremities Extremities: no ischemia, No edema - Abdominal General gastrointestinal: soft, non-tender, non-distended, normal bowel sounds - Integumentary Integumentary: Present: clear, warm - Psychiatric Psychiatric: appropriate mood/affect, cooperative - Neurologic Neurologic: CNII-XII intact, moves all extremities Results - Labs CBC & Chem 7: 01/15/18 05:39 01/15/18 05:39 Labs: Laboratory Last Values WBC 1.8 K/mm3 (4.5-11.0) L* 01/15/18 05:39 RBC 3.53 M/mm3 (3.65-5.03) L 01/15/18 05:39 Hgb 11.0 gm/dl (10.1-14.3) 01/15/18 05:39 Hct 33.2 % (30.3-42.9) 01/15/18 05:39 MCV 94 fl (79-97) 01/15/18 05:39 MCH 31 pg (28-32) 01/15/18 05:39 MCHC 33 % (30-34) 01/15/18 05:39 RDW 18.6 % (13.2-15.2) H 01/15/18 05:39 Plt Count 85 K/mm3 (140-440) L 01/15/18 05:39 Lymph % (Auto) 22.8 % (13.4-35.0) 01/13/18 00:06 [place] % (Auto) 10.5 % (0.0-7.3) H 01/13/18 00:06 Eos % (Auto) 1.0 % (0.0-4.3) 01/13/18 00:06 Baso % (Auto) 0.7 % (0.0-1.8) 01/13/18 00:06 Lymph # 0.6 K/mm3 (1.2-5.4) L 01/13/18 00:06 [place] # 0.3 K/mm3 (0.0-0.8) 01/13/18 00:06 Eos # 0.0 K/mm3 (0.0-0.4) 01/13/18 00:06 Baso # 0.0 K/mm3 (0.0-0.1) 01/13/18 00:06 Add Manual Diff Complete 01/15/18 05:39 Total Counted 100 01/15/18 05:39 Seg Neutrophils % 65.0 % (40.0-70.0) 01/13/18 00:06 Seg Neuts % (Manual) 66.0 % (40.0-70.0) 01/15/18 05:39 Band Neutrophils % 4.0 % 01/15/18 05:39 Lymphocytes % (Manual) 17.0 % (13.4-35.0) 01/15/18 05:39 Reactive Lymphs % (Man) 1.0 % 01/15/18 05:39 Monocytes % (Manual) 12.0 % (0.0-7.3) H 01/15/18 05:39 Eosinophils % (Manual) 0 % (0.0-4.3) 01/15/18 05:39 Basophils % (Manual) 0 % (0.0-1.8) 01/15/18 05:39 Metamyelocytes % 0 % 01/15/18 05:39 Myelocytes % 0 % 01/15/18 05:39 Promyelocytes % 0 % 01/15/18 05:39 Blast Cells % 0 % 01/15/18 05:39 Nucleated RBC % Not Reportable 01/15/18 05:39 Seg Neutrophils # 1.6 K/mm3 (1.8-7.7) L 01/13/18 00:06 Seg Neutrophils # Man 1.2 K/mm3 (1.8-7.7) L 01/15/18 05:39 Band Neutrophils # 0.1 K/mm3 01/15/18 05:39 Lymphocytes # (Manual) 0.3 K/mm3 (1.2-5.4) L 01/15/18 05:39 Abs React Lymphs (Man) 0.0 K/mm3 01/15/18 05:39 Monocytes # (Manual) 0.2 K/mm3 (0.0-0.8) 01/15/18 05:39 Eosinophils # (Manual) 0.0 K/mm3 (0.0-0.4) 01/15/18 05:39 Basophils # (Manual) 0.0 K/mm3 (0.0-0.1) 01/15/18 05:39 Metamyelocytes # 0.0 K/mm3 01/15/18 05:39 Myelocytes # 0.0 K/mm3 01/15/18 05:39 Promyelocytes # 0.0 K/mm3 01/15/18 05:39 Blast Cells # 0.0 K/mm3 01/15/18 05:39 WBC Morphology Not Reportable 01/15/18 05:39 Hypersegmented Neuts Not Reportable 01/15/18 05:39 Hyposegmented Neuts Not Reportable 01/15/18 05:39 Hypogranular Neuts Not Reportable 01/15/18 05:39 Smudge Cells Not Reportable 01/15/18 05:39 Toxic Granulation Not Reportable 01/15/18 05:39 Toxic Vacuolation Not Reportable 01/15/18 05:39 Dohle Bodies Not Reportable 01/15/18 05:39 Pelger-Huet Anomaly Not Reportable 01/15/18 05:39 Fredy Rods Not Reportable 01/15/18 05:39 Platelet Estimate Consistent w auto 01/15/18 05:39 Clumped Platelets Not Reportable 01/15/18 05:39 Plt Clumps, EDTA Not Reportable 01/15/18 05:39 Large Platelets Not Reportable 01/15/18 05:39 Giant Platelets Not Reportable 01/15/18 05:39 Platelet Satelliting Not Reportable 01/15/18 05:39 Plt Morphology Comment Not Reportable 01/15/18 05:39 RBC Morphology Not Reportable 01/15/18 05:39 Dimorphic RBCs Not Reportable 01/15/18 05:39 Polychromasia Not Reportable 01/15/18 05:39 Hypochromasia Not Reportable 01/15/18 05:39 Poikilocytosis Not Reportable 01/15/18 05:39 Anisocytosis 1+ 01/15/18 05:39 Microcytosis Not Reportable 01/15/18 05:39 Macrocytosis Not Reportable 01/15/18 05:39 Spherocytes Not Reportable 01/15/18 05:39 Pappenheimer Bodies Not Reportable 01/15/18 05:39 Sickle Cells Not Reportable 01/15/18 05:39 Target Cells Not Reportable 01/15/18 05:39 Tear Drop Cells Not Reportable 01/15/18 05:39 Ovalocytes Not Reportable 01/15/18 05:39 Helmet Cells Not Reportable 01/15/18 05:39 Pa-[place] Bodies Not Reportable 01/15/18 05:39 [place] Rings Not Reportable 01/15/18 05:39 [place] Cells Not Reportable 01/15/18 05:39 Bite Cells Not Reportable 01/15/18 05:39 Crenated Cell Not Reportable 01/15/18 05:39 Elliptocytes Not Reportable 01/15/18 05:39 Acanthocytes (Spur) Not Reportable 01/15/18 05:39 Rouleaux Not Reportable 01/15/18 05:39 Hemoglobin C Crystals Not Reportable 01/15/18 05:39 Schistocytes Not Reportable 01/15/18 05:39 Malaria parasites Not Reportable 01/15/18 05:39 [place]riel Bodies Not Reportable 01/15/18 05:39 Hem Pathologist Commnt No 01/15/18 05:39 D-Dimer < 135.00 ng/mlDDU (0-234) 01/13/18 00:20 POC ABG pH 7.400 (7.35-7.45) 01/13/18 01:32 POC ABG pCO2 26.0 (35-45) L 01/13/18 01:32 POC ABG pO2 65 (80-105) L 01/13/18 01:32 POC ABG HCO3 16.1 01/13/18 01:32 POC ABG Total CO2 17 01/13/18 01:32 POC ABG O2 Sat 93 01/13/18 01:32 POC ABG Base Excess -9 01/13/18 01:32 FiO2 32 % 01/13/18 01:32 Sodium 139 mmol/L (137-145) 01/15/18 05:39 Potassium 4.0 mmol/L (3.6-5.0) 01/15/18 05:39 Chloride 109.5 mmol/L (98-107) H 01/15/18 05:39 Carbon Dioxide 19 mmol/L (22-30) L 01/15/18 05:39 Anion Gap 15 mmol/L 01/15/18 05:39 BUN 12 mg/dL (7-17) 01/15/18 05:39 Creatinine 0.7 mg/dL (0.7-1.2) 01/15/18 05:39 Estimated GFR > 60 ml/min 01/15/18 05:39 BUN/Creatinine Ratio 17 % 01/15/18 05:39 Glucose 87 mg/dL (65-100) 01/15/18 05:39 Lactic Acid 0.70 mmol/L (0.7-2.0) 01/13/18 05:06 Calcium 8.4 mg/dL (8.4-10.2) 01/15/18 05:39 Magnesium 1.90 mg/dL (1.7-2.3) 01/15/18 05:39 Total Bilirubin 0.70 mg/dL (0.1-1.2) 01/15/18 05:39 AST 63 units/L (5-40) H 01/15/18 05:39 ALT 31 units/L (7-56) 01/15/18 05:39 Alkaline Phosphatase 103 units/L (35-129) 01/15/18 05:39 Total Creatine Kinase 59 units/L (30-135) 01/13/18 00:20 CK-MB (CK-2) 1.3 ng/mL (0.0-4.0) 01/13/18 00:20 CK-MB (CK-2) Rel Index 2.2 (0-4) 01/13/18 00:20 Troponin T < 0.010 ng/mL (0.00-0.029) 01/13/18 00:20 Total Protein 6.6 g/dL (6.3-8.2) 01/15/18 05:39 Albumin 3.2 g/dL (3.9-5) L 01/15/18 05:39 Albumin/Globulin Ratio 0.9 % 01/15/18 05:39 Urine Color Yellow (Yellow) 01/12/18 01:05 Urine Turbidity Clear (Clear) 01/12/18 01:05 Urine pH 6.0 (5.0-7.0) 01/12/18 01:05 Ur Specific [place] 1.005 (1.003-1.030) 01/12/18 01:05 Urine Protein <15 mg/dl mg/dL (Negative) 01/12/18 01:05 Urine Glucose (UA) Neg mg/dL (Negative) 01/12/18 01:05 Urine Ketones Neg mg/dL (Negative) 01/12/18 01:05 Urine Blood Neg (Negative) 01/12/18 01:05 Urine Nitrite Neg (Negative) 01/12/18 01:05 Urine Bilirubin Neg (Negative) 01/12/18 01:05 Urine Urobilinogen < 2.0 mg/dL (<2.0) 01/12/18 01:05 Ur Leukocyte Esterase Neg (Negative) 01/12/18 01:05 Urine WBC (Auto) < 1.0 /HPF (0.0-6.0) 01/12/18 01:05 Urine RBC (Auto) 1.0 /HPF (0.0-6.0) 01/12/18 01:05 U Epithel Cells (Auto) < 1.0 /HPF (0-13.0) 01/12/18 01:05 Urine Opiates Screen Presumptive negative 01/12/18 01:05 Urine Methadone Screen Presumptive negative 01/12/18 01:05 Ur Barbiturates Screen Presumptive negative 01/12/18 01:05 Ur Phencyclidine Scrn Presumptive negative 01/12/18 01:05 Ur Amphetamines Screen Presumptive negative 01/12/18 01:05 U Benzodiazepines Scrn Presumptive negative 01/12/18 01:05 Urine Cocaine Screen Presumptive negative 01/12/18 01:05 U Marijuana (THC) Screen Presumptive negative 01/12/18 01:05 Drugs of Abuse Note Disclamer 01/12/18 01:05 Blood Type O POSITIVE 01/13/18 04:59 Antibody Screen Negative 01/13/18 04:59
[2018-01-15] MEDS: EFFEXOR PO SCH (10:42)
[2018-01-15] MEDS: ZOLOFT PO SCH (10:42)
[2018-01-15] MEDS: HCTZ PO SCH (10:43)
[2018-01-15] MEDS: MAXIPIME/NS 2 GM/100 ML 2 GM/100 ML BAG IV SCH ×2 (10:43→21:10)
[2018-01-15] MEDS: NACL 0.9% 1000 ML 1,000 ML IV SCH ×2 (10:43→21:11)
[2018-01-15] MEDS: ZESTRIL PO SCH (10:44)
[2018-01-15] MEDS: SODIUM CHLORIDE FLUSH SYRINGE 10 ML IV SCH ×2 (10:44→21:12)
--- NOTE | 2018-01-15 12:48 | Progress Note ---
Assessment and Plan -Sepsis -Leukopenia -Thrombocytopenia -HIV -Tobacco abuse disorder -Depression with suicidal ideation -Continue current therapies -VTE prophylaxis with SCD -If no improvement in the platelets and leukocytes, recommend bone marrow biopsy -Anti-depressants -Psych consult -Supplemental oxygen if needed to keep O2 sats>88% -Smoking cessation encouraged -Trend lactic acid, get CRP and procalcitonin -Monitor hemodynamics closely -Would recommend de-escalate antibiotics, all cultures are negative so far -prn bronchodilators Subjective Date of service: 01/15/18 Principal diagnosis: Hypotension, pancytopenia Interval history: 52 year old white female with history of HIV Positive, COPD,hypertension and depression admitted to the hospital through emergency room with hypotension and hypoxia. Seen and examined. Has a sitter at the bedside. Denies any fevers or chills. No chest pain, no shortness of breath. Vitals, labs, medications, chart and imaging reviewed. 24 hour events reviewed. Objective Vital Signs - 12hr 01/15/18 01/15/18 01/15/18 02:00 05:17 07:54 Temperature 98.3 F Pulse Rate 82 Pulse Rate [ 77 Anterior Bilateral Throughout] Respiratory 20 Rate Respiratory 20 Rate [Anterior Bilateral Throughout] Blood Pressure 84/45 O2 Sat by Pulse 98 94 Oximetry 01/15/18 01/15/18 01/15/18 08:05 08:12 10:30 Temperature Pulse Rate 97 H Pulse Rate [ 93 H Anterior Bilateral Throughout] Respiratory 17 Rate Respiratory 18 Rate [Anterior Bilateral Throughout] Blood Pressure 108/59 O2 Sat by Pulse 97 95 Oximetry 01/15/18 12:26 Temperature 98.6 F Pulse Rate 83 Pulse Rate [ Anterior Bilateral Throughout] Respiratory 20 Rate Respiratory Rate [Anterior Bilateral Throughout] Blood Pressure 121/60 O2 Sat by Pulse 96 Oximetry Constitutional: no acute distress, alert, other (chronically ill looking) Eyes: non-icteric ENT: oropharynx moist Neck: supple, no lymphadenopathy, no JVD Effort: normal Ascultation: Bilateral: diminished breath sounds, other (Prolonged expiratory diseases.) Cardiovascular: regular rate and rhythm, other (S1,S2, no murmurs, gallops or rubs) Gastrointestinal: normoactive bowel sounds, soft, non-tender Integumentary: normal Extremities: no cyanosis, no edema Neurologic: normal mental status, non-focal exam, pupils equal and round, CN II- XII normal Psychiatric: anxious CBC and BMP: 01/15/18 05:39 01/15/18 05:39 ABG, PT/INR, D-dimer: ABG POC ABG pH 7.400 (7.35-7.45) 01/13/18 01:32 POC ABG pCO2 26.0 (35-45) L 01/13/18 01:32 POC ABG pO2 65 (80-105) L 01/13/18 01:32 POC ABG HCO3 16.1 01/13/18 01:32 POC ABG Total CO2 17 01/13/18 01:32 POC ABG O2 Sat 93 01/13/18 01:32 PT/INR, D-dimer D-Dimer < 135.00 ng/mlDDU (0-234) 01/13/18 00:20 Abnormal lab findings: Abnormal Labs 01/13/18 01/13/18 01/13/18 00:06 00:06 00:20 WBC 2.5 L RBC RDW 18.7 H Plt Count 92 L [place] % (Auto) 10.5 H Lymph # 0.6 L Monocytes % (Manual) Seg Neutrophils # 1.6 L Seg Neutrophils # Man Lymphocytes # (Manual) POC ABG pCO2 POC ABG pO2 Potassium 3.3 L Chloride Carbon Dioxide 18 L Glucose 150 H Lactic Acid 3.40 H* Calcium AST Albumin 01/13/18 01/14/18 01/14/18 01:32 07:44 07:44 WBC 1.8 L* RBC 3.55 L RDW 18.7 H Plt Count 80 L [place] % (Auto) Lymph # Monocytes % (Manual) 8.0 H Seg Neutrophils # Seg Neutrophils # Man 1.2 L Lymphocytes # (Manual) 0.5 L POC ABG pCO2 26.0 L POC ABG pO2 65 L Potassium Chloride 111.7 H Carbon Dioxide 17 L Glucose Lactic Acid Calcium 8.3 L AST Albumin 01/15/18 01/15/18 05:39 05:39 WBC 1.8 L* RBC 3.53 L RDW 18.6 H Plt Count 85 L [place] % (Auto) Lymph # Monocytes % (Manual) 12.0 H Seg Neutrophils # Seg Neutrophils # Man 1.2 L Lymphocytes # (Manual) 0.3 L POC ABG pCO2 POC ABG pO2 Potassium Chloride 109.5 H Carbon Dioxide 19 L Glucose Lactic Acid Calcium AST 63 H Albumin 3.2 L Chest x-ray: image reviewed (Hyperinflated, no acute cardiopulmonary pathology) Allied health notes reviewed: nursing
[2018-01-16] MEDS: SODIUM CHLORIDE FLUSH SYRINGE 10 ML IV SCH ×2 (09:24→21:15)
[2018-01-16] MEDS: NACL 0.9% 1000 ML 1,000 ML IV SCH (09:25)
[2018-01-16] MEDS: MAXIPIME/NS 2 GM/100 ML 2 GM/100 ML BAG IV SCH (09:25)
[2018-01-16] MEDS: HCTZ PO SCH ×2 (09:26→09:27)
[2018-01-16] MEDS: ZOLOFT PO SCH (09:26)
[2018-01-16] MEDS: EFFEXOR PO SCH (09:26)
[2018-01-16] MEDS: ZESTRIL PO SCH ×2 (09:26→09:29)
--- NOTE | 2018-01-16 10:13 | Progress Note ---
Assessment and Plan Assessment and plan: --Hypotension, continue IV fluids and supportive care, increase oral fluids --Suicidal thoughts and ideation; Suicidal watch, 1013 status Management per psych, psych following Possible discharge to inpatient psych facility once medically stable --Sepsis: Cultures negative so far, patient is afebrile, no evidence of sepsis Received 3 days of cefepime, DC antibiotics and supportive care --Leukopenia; probably secondary to underlying disease process As well as HIV-AIDS, closely monitor, continue antibiotics Consider hematology consult if needed --Thrombocytopenia; probably secondary to underlying disease process Closely monitor, hematology as needed --Lactic acidosis; probably secondary to metabolic acidosis as well as sepsis Resolved --Hypokalemia; corrected --DVT prophylaxis; no pharmacologic anticoagulation in view of thrombocytopenia , continue SCDs Continue 1013 status/suicidal watch, follow psych evaluation and recommendations Closely monitor the patient and adjust the management as needed History Interval history: Patient seen and examined medical records reviewed Patient feels better, denies suicidal thoughts Vital signs reviewed 1013 status Hospitalist Physical - Constitutional Vitals: Temp Pulse Resp BP Pulse Ox 98.7 F 94 H 21 99/57 90 01/16/18 05:46 01/16/18 05:46 01/16/18 05:46 01/16/18 05:46 01/16/18 05:46 General appearance: Present: no acute distress, well-nourished - EENT Eyes: Present: PERRL, EOM intact - Neck Neck: Present: supple, normal ROM - Respiratory Respiratory effort: normal Respiratory: bilateral: diminished, negative: rales, rhonchi, wheezing - Cardiovascular Rhythm: regular Heart Sounds: Present: S1 & S2 - Extremities Extremities: no ischemia, No edema - Abdominal General gastrointestinal: soft, non-tender, non-distended, normal bowel sounds - Integumentary Integumentary: Present: clear, warm - Psychiatric Psychiatric: appropriate mood/affect, cooperative - Neurologic Neurologic: moves all extremities Results - Labs CBC & Chem 7: 01/15/18 05:39 01/15/18 05:39 Labs: Laboratory Last Values WBC 1.8 K/mm3 (4.5-11.0) L* 01/15/18 05:39 RBC 3.53 M/mm3 (3.65-5.03) L 01/15/18 05:39 Hgb 11.0 gm/dl (10.1-14.3) 01/15/18 05:39 Hct 33.2 % (30.3-42.9) 01/15/18 05:39 MCV 94 fl (79-97) 01/15/18 05:39 MCH 31 pg (28-32) 01/15/18 05:39 MCHC 33 % (30-34) 01/15/18 05:39 RDW 18.6 % (13.2-15.2) H 01/15/18 05:39 Plt Count 85 K/mm3 (140-440) L 01/15/18 05:39 Lymph % (Auto) 22.8 % (13.4-35.0) 01/13/18 00:06 [place] % (Auto) 10.5 % (0.0-7.3) H 01/13/18 00:06 Eos % (Auto) 1.0 % (0.0-4.3) 01/13/18 00:06 Baso % (Auto) 0.7 % (0.0-1.8) 01/13/18 00:06 Lymph # 0.6 K/mm3 (1.2-5.4) L 01/13/18 00:06 [place] # 0.3 K/mm3 (0.0-0.8) 01/13/18 00:06 Eos # 0.0 K/mm3 (0.0-0.4) 01/13/18 00:06 Baso # 0.0 K/mm3 (0.0-0.1) 01/13/18 00:06 Add Manual Diff Complete 01/15/18 05:39 Total Counted 100 01/15/18 05:39 Seg Neutrophils % 65.0 % (40.0-70.0) 01/13/18 00:06 Seg Neuts % (Manual) 66.0 % (40.0-70.0) 01/15/18 05:39 Band Neutrophils % 4.0 % 01/15/18 05:39 Lymphocytes % (Manual) 17.0 % (13.4-35.0) 01/15/18 05:39 Reactive Lymphs % (Man) 1.0 % 01/15/18 05:39 Monocytes % (Manual) 12.0 % (0.0-7.3) H 01/15/18 05:39 Eosinophils % (Manual) 0 % (0.0-4.3) 01/15/18 05:39 Basophils % (Manual) 0 % (0.0-1.8) 01/15/18 05:39 Metamyelocytes % 0 % 01/15/18 05:39 Myelocytes % 0 % 01/15/18 05:39 Promyelocytes % 0 % 01/15/18 05:39 Blast Cells % 0 % 01/15/18 05:39 Nucleated RBC % Not Reportable 01/15/18 05:39 Seg Neutrophils # 1.6 K/mm3 (1.8-7.7) L 01/13/18 00:06 Seg Neutrophils # Man 1.2 K/mm3 (1.8-7.7) L 01/15/18 05:39 Band Neutrophils # 0.1 K/mm3 01/15/18 05:39 Lymphocytes # (Manual) 0.3 K/mm3 (1.2-5.4) L 01/15/18 05:39 Abs React Lymphs (Man) 0.0 K/mm3 01/15/18 05:39 Monocytes # (Manual) 0.2 K/mm3 (0.0-0.8) 01/15/18 05:39 Eosinophils # (Manual) 0.0 K/mm3 (0.0-0.4) 01/15/18 05:39 Basophils # (Manual) 0.0 K/mm3 (0.0-0.1) 01/15/18 05:39 Metamyelocytes # 0.0 K/mm3 01/15/18 05:39 Myelocytes # 0.0 K/mm3 01/15/18 05:39 Promyelocytes # 0.0 K/mm3 01/15/18 05:39 Blast Cells # 0.0 K/mm3 01/15/18 05:39 WBC Morphology Not Reportable 01/15/18 05:39 Hypersegmented Neuts Not Reportable 01/15/18 05:39 Hyposegmented Neuts Not Reportable 01/15/18 05:39 Hypogranular Neuts Not Reportable 01/15/18 05:39 Smudge Cells Not Reportable 01/15/18 05:39 Toxic Granulation Not Reportable 01/15/18 05:39 Toxic Vacuolation Not Reportable 01/15/18 05:39 Dohle Bodies Not Reportable 01/15/18 05:39 Pelger-Huet Anomaly Not Reportable 01/15/18 05:39 Fredy Rods Not Reportable 01/15/18 05:39 Platelet Estimate Consistent w auto 01/15/18 05:39 Clumped Platelets Not Reportable 01/15/18 05:39 Plt Clumps, EDTA Not Reportable 01/15/18 05:39 Large Platelets Not Reportable 01/15/18 05:39 Giant Platelets Not Reportable 01/15/18 05:39 Platelet Satelliting Not Reportable 01/15/18 05:39 Plt Morphology Comment Not Reportable 01/15/18 05:39 RBC Morphology Not Reportable 01/15/18 05:39 Dimorphic RBCs Not Reportable 01/15/18 05:39 Polychromasia Not Reportable 01/15/18 05:39 Hypochromasia Not Reportable 01/15/18 05:39 Poikilocytosis Not Reportable 01/15/18 05:39 Anisocytosis 1+ 01/15/18 05:39 Microcytosis Not Reportable 01/15/18 05:39 Macrocytosis Not Reportable 01/15/18 05:39 Spherocytes Not Reportable 01/15/18 05:39 Pappenheimer Bodies Not Reportable 01/15/18 05:39 Sickle Cells Not Reportable 01/15/18 05:39 Target Cells Not Reportable 01/15/18 05:39 Tear Drop Cells Not Reportable 01/15/18 05:39 Ovalocytes Not Reportable 01/15/18 05:39 Helmet Cells Not Reportable 01/15/18 05:39 Pa-Minor Bodies Not Reportable 01/15/18 05:39 [place] Rings Not Reportable 01/15/18 05:39 Cheli Cells Not Reportable 01/15/18 05:39 Bite Cells Not Reportable 01/15/18 05:39 Crenated Cell Not Reportable 01/15/18 05:39 Elliptocytes Not Reportable 01/15/18 05:39 Acanthocytes (Spur) Not Reportable 01/15/18 05:39 Rouleaux Not Reportable 01/15/18 05:39 Hemoglobin C Crystals Not Reportable 01/15/18 05:39 Schistocytes Not Reportable 01/15/18 05:39 Malaria parasites Not Reportable 01/15/18 05:39 [place] Bodies Not Reportable 01/15/18 05:39 Hem Pathologist Commnt No 01/15/18 05:39 D-Dimer < 135.00 ng/mlDDU (0-234) 01/13/18 00:20 POC ABG pH 7.400 (7.35-7.45) 01/13/18 01:32 POC ABG pCO2 26.0 (35-45) L 01/13/18 01:32 POC ABG pO2 65 (80-105) L 01/13/18 01:32 POC ABG HCO3 16.1 01/13/18 01:32 POC ABG Total CO2 17 01/13/18 01:32 POC ABG O2 Sat 93 01/13/18 01:32 POC ABG Base Excess -9 01/13/18 01:32 FiO2 32 % 01/13/18 01:32 Sodium 139 mmol/L (137-145) 01/15/18 05:39 Potassium 4.0 mmol/L (3.6-5.0) 01/15/18 05:39 Chloride 109.5 mmol/L (98-107) H 01/15/18 05:39 Carbon Dioxide 19 mmol/L (22-30) L 01/15/18 05:39 Anion Gap 15 mmol/L 01/15/18 05:39 BUN 12 mg/dL (7-17) 01/15/18 05:39 Creatinine 0.7 mg/dL (0.7-1.2) 01/15/18 05:39 Estimated GFR > 60 ml/min 01/15/18 05:39 BUN/Creatinine Ratio 17 % 01/15/18 05:39 Glucose 87 mg/dL (65-100) 01/15/18 05:39 Lactic Acid 0.70 mmol/L (0.7-2.0) 01/13/18 05:06 Calcium 8.4 mg/dL (8.4-10.2) 01/15/18 05:39 Magnesium 1.90 mg/dL (1.7-2.3) 01/15/18 05:39 Total Bilirubin 0.70 mg/dL (0.1-1.2) 01/15/18 05:39 AST 63 units/L (5-40) H 01/15/18 05:39 ALT 31 units/L (7-56) 01/15/18 05:39 Alkaline Phosphatase 103 units/L (35-129) 01/15/18 05:39 Total Creatine Kinase 59 units/L (30-135) 01/13/18 00:20 CK-MB (CK-2) 1.3 ng/mL (0.0-4.0) 01/13/18 00:20 CK-MB (CK-2) Rel Index 2.2 (0-4) 01/13/18 00:20 Troponin T < 0.010 ng/mL (0.00-0.029) 01/13/18 00:20 Total Protein 6.6 g/dL (6.3-8.2) 01/15/18 05:39 Albumin 3.2 g/dL (3.9-5) L 01/15/18 05:39 Albumin/Globulin Ratio 0.9 % 01/15/18 05:39 Urine Color Yellow (Yellow) 01/12/18 01:05 Urine Turbidity Clear (Clear) 01/12/18 01:05 Urine pH 6.0 (5.0-7.0) 01/12/18 01:05 Ur Specific [place] 1.005 (1.003-1.030) 01/12/18 01:05 Urine Protein <15 mg/dl mg/dL (Negative) 01/12/18 01:05 Urine Glucose (UA) Neg mg/dL (Negative) 01/12/18 01:05 Urine Ketones Neg mg/dL (Negative) 01/12/18 01:05 Urine Blood Neg (Negative) 01/12/18 01:05 Urine Nitrite Neg (Negative) 01/12/18 01:05 Urine Bilirubin Neg (Negative) 01/12/18 01:05 Urine Urobilinogen < 2.0 mg/dL (<2.0) 01/12/18 01:05 Ur Leukocyte Esterase Neg (Negative) 01/12/18 01:05 Urine WBC (Auto) < 1.0 /HPF (0.0-6.0) 01/12/18 01:05 Urine RBC (Auto) 1.0 /HPF (0.0-6.0) 01/12/18 01:05 U Epithel Cells (Auto) < 1.0 /HPF (0-13.0) 01/12/18 01:05 Urine Opiates Screen Presumptive negative 01/12/18 01:05 Urine Methadone Screen Presumptive negative 01/12/18 01:05 Ur Barbiturates Screen Presumptive negative 01/12/18 01:05 Ur Phencyclidine Scrn Presumptive negative 01/12/18 01:05 Ur Amphetamines Screen Presumptive negative 01/12/18 01:05 U Benzodiazepines Scrn Presumptive negative 01/12/18 01:05 Urine Cocaine Screen Presumptive negative 01/12/18 01:05 U Marijuana (THC) Screen Presumptive negative 01/12/18 01:05 Drugs of Abuse Note Disclamer 01/12/18 01:05 Blood Type O POSITIVE 01/13/18 04:59 Antibody Screen Negative 01/13/18 04:59
--- NOTE | 2018-01-16 10:30 | Progress Note ---
Assessment and Plan -Sepsis -Leukopenia -Thrombocytopenia -HIV -Tobacco abuse disorder -Depression with suicidal ideation -Continue current therapies -VTE prophylaxis with SCD -If no improvement in the platelets and leukocytes, recommend bone marrow biopsy -Anti-depressants -Psych consult -Supplemental oxygen if needed to keep O2 sats>88% -Smoking cessation encouraged -Monitor hemodynamics closely -prn bronchodilators Subjective Date of service: 01/16/18 Principal diagnosis: Hypotension, lactic acidosis Interval history: 52 year old white female with history of HIV Positive, COPD,hypertension and depression admitted to the hospital through emergency room with hypotension and hypoxia. Seen and examined. Has a sitter at the bedside. Denies any fevers or chills. No chest pain, no shortness of breath. Vitals, labs, medications, chart and imaging reviewed. 24 hour events reviewed. Objective Vital Signs - 12hr 01/15/18 01/16/18 01/16/18 23:30 01:00 01:01 Temperature 99.1 F 98.4 F 99.0 F Pulse Rate 107 H 92 H 89 Respiratory 22 20 22 Rate Blood Pressure 95/49 96/54 Blood Pressure 96/54 [Left] O2 Sat by Pulse 91 93 93 Oximetry 01/16/18 05:46 Temperature 98.7 F Pulse Rate 94 H Respiratory 21 Rate Blood Pressure 99/57 Blood Pressure [Left] O2 Sat by Pulse 90 Oximetry Constitutional: no acute distress, alert, other (chronically ill looking) Eyes: non-icteric ENT: oropharynx moist Neck: supple, no lymphadenopathy, no JVD Effort: normal Ascultation: Bilateral: diminished breath sounds, other (Prolonged expiratory diseases.) Cardiovascular: regular rate and rhythm, other (S1,S2, no murmurs, gallops or rubs) Gastrointestinal: normoactive bowel sounds, soft, non-tender Integumentary: normal Extremities: no cyanosis, no edema Neurologic: normal mental status, non-focal exam, pupils equal and round, CN II- XII normal Psychiatric: anxious CBC and BMP: 01/18/18 04:46 01/18/18 04:46 ABG, PT/INR, D-dimer: ABG POC ABG pH 7.400 (7.35-7.45) 01/13/18 01:32 POC ABG pCO2 26.0 (35-45) L 01/13/18 01:32 POC ABG pO2 65 (80-105) L 01/13/18 01:32 POC ABG HCO3 16.1 01/13/18 01:32 POC ABG Total CO2 17 01/13/18 01:32 POC ABG O2 Sat 93 01/13/18 01:32 PT/INR, D-dimer D-Dimer < 135.00 ng/mlDDU (0-234) 01/13/18 00:20 Abnormal lab findings: Abnormal Labs 01/13/18 01/13/18 01/13/18 00:06 00:06 00:20 WBC 2.5 L RBC RDW 18.7 H Plt Count 92 L [place] % (Auto) 10.5 H Lymph # 0.6 L Monocytes % (Manual) Seg Neutrophils # 1.6 L Seg Neutrophils # Man Lymphocytes # (Manual) POC ABG pCO2 POC ABG pO2 Potassium 3.3 L Chloride Carbon Dioxide 18 L Glucose 150 H Lactic Acid 3.40 H* Calcium AST Albumin 01/13/18 01/14/18 01/14/18 01:32 07:44 07:44 WBC 1.8 L* RBC 3.55 L RDW 18.7 H Plt Count 80 L [place] % (Auto) Lymph # Monocytes % (Manual) 8.0 H Seg Neutrophils # Seg Neutrophils # Man 1.2 L Lymphocytes # (Manual) 0.5 L POC ABG pCO2 26.0 L POC ABG pO2 65 L Potassium Chloride 111.7 H Carbon Dioxide 17 L Glucose Lactic Acid Calcium 8.3 L AST Albumin 01/15/18 01/15/18 05:39 05:39 WBC 1.8 L* RBC 3.53 L RDW 18.6 H Plt Count 85 L [place] % (Auto) Lymph # Monocytes % (Manual) 12.0 H Seg Neutrophils # Seg Neutrophils # Man 1.2 L Lymphocytes # (Manual) 0.3 L POC ABG pCO2 POC ABG pO2 Potassium Chloride 109.5 H Carbon Dioxide 19 L Glucose Lactic Acid Calcium AST 63 H Albumin 3.2 L Allied health notes reviewed: nursing
[2018-01-16] MEDS: DUONEB *Not for PRN Use IH SCH ×3 (11:05→20:47)
[2018-01-17] MEDS: DUONEB *Not for PRN Use IH SCH ×3 (07:52→21:51)
[2018-01-17] MEDS: HCTZ PO SCH (10:45)
[2018-01-17] MEDS: ZESTRIL PO SCH (10:47)
[2018-01-17] MEDS: EFFEXOR PO SCH (10:52)
[2018-01-17] MEDS: ZOLOFT PO SCH (10:52)
[2018-01-17] MEDS: SODIUM CHLORIDE FLUSH SYRINGE 10 ML IV SCH ×2 (10:53→22:04)
--- NOTE | 2018-01-17 12:09 | Progress Note ---
Assessment and Plan Severe Sepsis Leukopenia Thrombocytopenia HIV Tobacco abuse disorder Depression with suicidal ideation Lactic Acidosis - Continue current therapies - VTE prophylaxis with SCD - If no improvement in the platelets and leukocytes, recommend bone marrow biopsy - Anti-depressants - Psych consult - Supplemental oxygen if needed to keep O2 sats>88% - Smoking cessation encouraged - Trend lactic acid, get CRP and procalcitonin - Monitor hemodynamics closely - Would recommend de-escalate antibiotics, all cultures are negative so far - prn bronchodilators Subjective Date of service: 01/17/18 Principal diagnosis: Severe Sepsis; HIV positive; Suicidal Ideations; lactic acidosis Interval history: Patient is seen today for: Severe Sepsis; HIV positive; Suicidal Ideations; lactic acidosis Seen and examined at bedside; 24hour events reviewed; nursing and respiratory care staff consulted; no adverse overnight events reported to me; Objective Vital Signs - 12hr 01/17/18 01/17/18 01/17/18 06:19 07:53 07:54 Temperature 98.1 F Pulse Rate 86 Pulse Rate [ 80 Anterior Bilateral Throughout] Respiratory 22 Rate Respiratory 18 Rate [Anterior Bilateral Throughout] Blood Pressure 95/61 O2 Sat by Pulse 92 91 Oximetry 01/17/18 01/17/18 01/17/18 07:58 10:47 11:41 Temperature 99.4 F Pulse Rate 75 86 Pulse Rate [ 84 Anterior Bilateral Throughout] Respiratory 18 Rate Respiratory 18 Rate [Anterior Bilateral Throughout] Blood Pressure 93/61 115/71 O2 Sat by Pulse 92 Oximetry Constitutional: no acute distress, alert, other (chronically ill looking) Eyes: non-icteric ENT: oropharynx moist Neck: supple, no lymphadenopathy, no JVD Effort: normal Ascultation: Bilateral: diminished breath sounds, other (Prolonged expiratory diseases.) Cardiovascular: regular rate and rhythm, other (S1,S2, no murmurs, gallops or rubs) Gastrointestinal: normoactive bowel sounds, soft, non-tender Integumentary: normal Extremities: no cyanosis, no edema Neurologic: normal mental status, non-focal exam, pupils equal and round, CN II- XII normal Psychiatric: anxious CBC and BMP: 01/15/18 05:39 01/15/18 05:39 ABG, PT/INR, D-dimer: ABG POC ABG pH 7.400 (7.35-7.45) 01/13/18 01:32 POC ABG pCO2 26.0 (35-45) L 01/13/18 01:32 POC ABG pO2 65 (80-105) L 01/13/18 01:32 POC ABG HCO3 16.1 01/13/18 01:32 POC ABG Total CO2 17 01/13/18 01:32 POC ABG O2 Sat 93 01/13/18 01:32 PT/INR, D-dimer D-Dimer < 135.00 ng/mlDDU (0-234) 01/13/18 00:20 Abnormal lab findings: Abnormal Labs 01/13/18 01/13/18 01/13/18 00:06 00:06 00:20 WBC 2.5 L RBC RDW 18.7 H Plt Count 92 L [place] % (Auto) 10.5 H Lymph # 0.6 L Monocytes % (Manual) Seg Neutrophils # 1.6 L Seg Neutrophils # Man Lymphocytes # (Manual) POC ABG pCO2 POC ABG pO2 Potassium 3.3 L Chloride Carbon Dioxide 18 L Glucose 150 H Lactic Acid 3.40 H* Calcium AST Albumin 01/13/18 01/14/18 01/14/18 01:32 07:44 07:44 WBC 1.8 L* RBC 3.55 L RDW 18.7 H Plt Count 80 L [place] % (Auto) Lymph # Monocytes % (Manual) 8.0 H Seg Neutrophils # Seg Neutrophils # Man 1.2 L Lymphocytes # (Manual) 0.5 L POC ABG pCO2 26.0 L POC ABG pO2 65 L Potassium Chloride 111.7 H Carbon Dioxide 17 L Glucose Lactic Acid Calcium 8.3 L AST Albumin 01/15/18 01/15/18 05:39 05:39 WBC 1.8 L* RBC 3.53 L RDW 18.6 H Plt Count 85 L [place] % (Auto) Lymph # Monocytes % (Manual) 12.0 H Seg Neutrophils # Seg Neutrophils # Man 1.2 L Lymphocytes # (Manual) 0.3 L POC ABG pCO2 POC ABG pO2 Potassium Chloride 109.5 H Carbon Dioxide 19 L Glucose Lactic Acid Calcium AST 63 H Albumin 3.2 L Allied health notes reviewed: nursing
--- NOTE | 2018-01-17 13:44 | Consultation ---
History of Present Illness - Reason for Consult Consult date: 01/17/18 Reason for consult: Psychiatry Follow-up Requesting physician: KAMALA BISHOP - Chief Complaint Chief complaint: "I hear voices" - History of Present Psychiatric Illness 52-year-old female presenting with a chief complaint of shortness of breath from [place]. Psychiatry was consulted to see patient reference SI's. Today the patient was calm and cooperative during the assessment. She stated that she was hearing voices and suicidal prior to her admission to [place]. She stated hearing voices for 20 plus years along with abusing recreational drugs. She stated that her life has been "up and down." She sated that the voices are "overwhelming" which caused her to be depressed. She stated that the voices are telling her to harm herself. She stated that she is trying her best to ignore the voices. She rate her depression 6/10, with 10 being the worse. She would not confirm or deny SI's when asked. She denies HI's and VH's. She denies erratic sleep and a poor appetite. She stated that she has been "clean off drugs " for 19 months. She stated that she takes Effexor, Zoloft, and Seroquel. Medications and Allergies Allergies Allergy/AdvReac Type Severity Reaction Status Date / Time No Known Allergies Allergy Unverified 01/12/18 23:56 Home Medications Medication Instructions Recorded Confirmed Last Taken Type Lisinopril/Hydrochlorothiazide 1 tab PO QDAY 01/13/18 01/13/18 Unknown History [Zestoretic 20-12.5 mg] Quetiapine Fumarate [SEROquel] 100 mg PO QHS 01/13/18 01/13/18 Unknown History Sertraline HCl [Zoloft] 100 mg PO QAM 01/13/18 01/13/18 Unknown History Venlafaxine HCl 75 mg PO QAM 01/13/18 01/13/18 Unknown History hydrOXYZINE PAMOATE [Hydroxyzine 25 mg PO TID 01/13/18 01/13/18 Unknown History Pamoate] Active Meds: Active Medications Acetaminophen (Tylenol) 650 mg PO Q4H PRN PRN Reason: Pain MILD(1-3)/Fever >100.5/[place] Albuterol (Proventil) 2.5 mg IH Q4HRT PRN PRN Reason: Shortness Of Breath Albuterol/Ipratropium (Duoneb *Not For Prn Use*) 1 ampul IH TIDRT [facility] Last Admin: 01/17/18 07:52 Dose: 1 ampul Hydrochlorothiazide (Hctz) 12.5 mg PO QDAY [facility] Last Admin: 01/17/18 10:45 Dose: Not Given Lisinopril (Zestril) 20 mg PO QDAY [facility] Last Admin: 01/17/18 10:47 Dose: Not Given Ondansetron HCl (Zofran) 4 mg IV Q8H PRN PRN Reason: Nausea And Vomiting Quetiapine Fumarate (Seroquel) 100 mg PO QHS [facility] Last Admin: 01/16/18 21:15 Dose: 100 mg Sertraline HCl (Zoloft) 100 mg PO QAM [facility] Last Admin: 01/17/18 10:52 Dose: 100 mg Sodium Chloride (Sodium Chloride Flush Syringe 10 Ml) 10 ml IV BID [facility] Last Admin: 01/17/18 10:53 Dose: 10 ml Sodium Chloride (Sodium Chloride Flush Syringe 10 Ml) 10 ml IV PRN PRN PRN Reason: LINE FLUSH [facility]) [facility] Admin: 01/17/18 10:52 Dose: 75 mg Past psychiatric history - Past Medical History Past Medical History: COPD, HIV/AIDS, liver disease Past Surgical History: No surgical history - past Psychiatric treatment and history psychiatric treatment history: Seen by a psychiatrist in the past. Denies a fam psy hx. - Social History Social history: Lives alone Mental Status Exam - Vital signs Last Vital Signs Temp 99.4 F 01/17/18 11:41 Pulse 86 01/17/18 11:41 Resp 18 01/17/18 11:41 BP 115/71 01/17/18 11:41 Pulse Ox 92 01/17/18 11:41 - Exam Narrative exam: MSE: Appearance: calm, cooperative Behavior: regular eye contact Speech: regular rate and tone Mood: "depressed" Affect: congruent to mood Thought Process: circumstantial Thought Content: denies SI/HI's and VH's Motor Activity: sitting up in bed Cognition: A/O x 3 Insight: fair Judgment: variable Results Result Diagrams: 01/15/18 05:39 01/15/18 05:39 All other labs normal. Assessment and Plan Assessment and plan: Impression: Unspecified Mood DO with psy features. Hx of substance abuse. Today the patient was calm and cooperative during the assessment. The patient cannot confirm or deny SI's. WBC's 1.8. Medical: Hx of HIV/AIDS DDx: MDD with psychosis, R/O Bipolar DO, R/O Schizoaffective DO Recommendation/Plan: Continue 1013 with placement to inpatient psy services once medically clear. Continue home medications (Zoloft, Seroquel, and Effexor) . Discussed metabolic side effects and possible agranulocytosis with patient reference Seroquel. The patient is on a low dose of Seroquel at this time. The benefit of Seroquel outweigh the risk, the patient is experiencing command AH' s.
--- NOTE | 2018-01-17 21:07 | Progress Note ---
Assessment and Plan Assessment and plan: --Hypotension, continue IV fluids and supportive care, increase oral fluids --Acute psychosis/auditory hallucinations Continue 1013 status, although psych evaluation and recommendations Possible discharge to inpatient psych facility once medically stable --Sepsis:/Low grade fever/leukopenia Cultures negative so far, patient is afebrile, no evidence of sepsis Received 3 days of cefepime, will resume cefepime, consult ID if needed --Leukopenia; probably secondary to underlying disease process As well as HIV-AIDS, closely monitor, continue antibiotics Consider hematology consult if needed --Thrombocytopenia; probably secondary to underlying disease process Closely monitor, hematology as needed --Lactic acidosis; resolved --Moderate malnutrition; supportive care nutrition supplements --DVT prophylaxis; no pharmacologic anticoagulation in view of thrombocytopenia , continue SCDs Continue 1013 status, follow psych evaluation and recommendations Patient will be transferred to inpatient psych facility once medically stable History Interval history: Patient Seen and examined medical records reviewed Patient complains of generalized weakness Low-grade fever, lower range of blood pressures Complains of hearing voices intermittent Vital signs reviewed Hospitalist Physical - Constitutional Vitals: Temp Pulse Resp BP Pulse Ox 100.5 F H 87 18 112/65 91 01/17/18 17:02 01/17/18 17:02 01/17/18 17:02 01/17/18 17:02 01/17/18 17:02 General appearance: Present: no acute distress, well-nourished - EENT Eyes: Present: PERRL, EOM intact - Neck Neck: Present: supple, normal ROM - Respiratory Respiratory effort: normal Respiratory: bilateral: diminished, negative: rales, rhonchi, wheezing - Cardiovascular Rhythm: regular Heart Sounds: Present: S1 & S2 - Extremities Extremities: no ischemia, No edema - Abdominal General gastrointestinal: soft, non-tender, non-distended, normal bowel sounds - Integumentary Integumentary: Present: clear, warm - Psychiatric Psychiatric: appropriate mood/affect, cooperative - Neurologic Neurologic: CNII-XII intact, moves all extremities Results - Labs CBC & Chem 7: 01/15/18 05:39 01/15/18 05:39 Labs: Laboratory Last Values WBC 1.8 K/mm3 (4.5-11.0) L* 01/15/18 05:39 RBC 3.53 M/mm3 (3.65-5.03) L 01/15/18 05:39 Hgb 11.0 gm/dl (10.1-14.3) 01/15/18 05:39 Hct 33.2 % (30.3-42.9) 01/15/18 05:39 MCV 94 fl (79-97) 01/15/18 05:39 MCH 31 pg (28-32) 01/15/18 05:39 MCHC 33 % (30-34) 01/15/18 05:39 RDW 18.6 % (13.2-15.2) H 01/15/18 05:39 Plt Count 85 K/mm3 (140-440) L 01/15/18 05:39 Lymph % (Auto) 22.8 % (13.4-35.0) 01/13/18 00:06 [place] % (Auto) 10.5 % (0.0-7.3) H 01/13/18 00:06 Eos % (Auto) 1.0 % (0.0-4.3) 01/13/18 00:06 Baso % (Auto) 0.7 % (0.0-1.8) 01/13/18 00:06 Lymph # 0.6 K/mm3 (1.2-5.4) L 01/13/18 00:06 [place] # 0.3 K/mm3 (0.0-0.8) 01/13/18 00:06 Eos # 0.0 K/mm3 (0.0-0.4) 01/13/18 00:06 Baso # 0.0 K/mm3 (0.0-0.1) 01/13/18 00:06 Add Manual Diff Complete 01/15/18 05:39 Total Counted 100 01/15/18 05:39 Seg Neutrophils % 65.0 % (40.0-70.0) 01/13/18 00:06 Seg Neuts % (Manual) 66.0 % (40.0-70.0) 01/15/18 05:39 Band Neutrophils % 4.0 % 01/15/18 05:39 Lymphocytes % (Manual) 17.0 % (13.4-35.0) 01/15/18 05:39 Reactive Lymphs % (Man) 1.0 % 01/15/18 05:39 Monocytes % (Manual) 12.0 % (0.0-7.3) H 01/15/18 05:39 Eosinophils % (Manual) 0 % (0.0-4.3) 01/15/18 05:39 Basophils % (Manual) 0 % (0.0-1.8) 01/15/18 05:39 Metamyelocytes % 0 % 01/15/18 05:39 Myelocytes % 0 % 01/15/18 05:39 Promyelocytes % 0 % 01/15/18 05:39 Blast Cells % 0 % 01/15/18 05:39 Nucleated RBC % Not Reportable 01/15/18 05:39 Seg Neutrophils # 1.6 K/mm3 (1.8-7.7) L 01/13/18 00:06 Seg Neutrophils # Man 1.2 K/mm3 (1.8-7.7) L 01/15/18 05:39 Band Neutrophils # 0.1 K/mm3 01/15/18 05:39 Lymphocytes # (Manual) 0.3 K/mm3 (1.2-5.4) L 01/15/18 05:39 Abs React Lymphs (Man) 0.0 K/mm3 01/15/18 05:39 Monocytes # (Manual) 0.2 K/mm3 (0.0-0.8) 01/15/18 05:39 Eosinophils # (Manual) 0.0 K/mm3 (0.0-0.4) 01/15/18 05:39 Basophils # (Manual) 0.0 K/mm3 (0.0-0.1) 01/15/18 05:39 Metamyelocytes # 0.0 K/mm3 01/15/18 05:39 Myelocytes # 0.0 K/mm3 01/15/18 05:39 Promyelocytes # 0.0 K/mm3 01/15/18 05:39 Blast Cells # 0.0 K/mm3 01/15/18 05:39 WBC Morphology Not Reportable 01/15/18 05:39 Hypersegmented Neuts Not Reportable 01/15/18 05:39 Hyposegmented Neuts Not Reportable 01/15/18 05:39 Hypogranular Neuts Not Reportable 01/15/18 05:39 Smudge Cells Not Reportable 01/15/18 05:39 Toxic Granulation Not Reportable 01/15/18 05:39 Toxic Vacuolation Not Reportable 01/15/18 05:39 Dohle Bodies Not Reportable 01/15/18 05:39 Pelger-Huet Anomaly Not Reportable 01/15/18 05:39 Fredy Rods Not Reportable 01/15/18 05:39 Platelet Estimate Consistent w auto 01/15/18 05:39 Clumped Platelets Not Reportable 01/15/18 05:39 Plt Clumps, EDTA Not Reportable 01/15/18 05:39 Large Platelets Not Reportable 01/15/18 05:39 Giant Platelets Not Reportable 01/15/18 05:39 Platelet Satelliting Not Reportable 01/15/18 05:39 Plt Morphology Comment Not Reportable 01/15/18 05:39 RBC Morphology Not Reportable 01/15/18 05:39 Dimorphic RBCs Not Reportable 01/15/18 05:39 Polychromasia Not Reportable 01/15/18 05:39 Hypochromasia Not Reportable 01/15/18 05:39 Poikilocytosis Not Reportable 01/15/18 05:39 Anisocytosis 1+ 01/15/18 05:39 Microcytosis Not Reportable 01/15/18 05:39 Macrocytosis Not Reportable 01/15/18 05:39 Spherocytes Not Reportable 01/15/18 05:39 Pappenheimer Bodies Not Reportable 01/15/18 05:39 Sickle Cells Not Reportable 01/15/18 05:39 Target Cells Not Reportable 01/15/18 05:39 Tear Drop Cells Not Reportable 01/15/18 05:39 Ovalocytes Not Reportable 01/15/18 05:39 Helmet Cells Not Reportable 01/15/18 05:39 [place] Bodies Not Reportable 01/15/18 05:39 [place] Rings Not Reportable 01/15/18 05:39 Cheli Cells Not Reportable 01/15/18 05:39 Bite Cells Not Reportable 01/15/18 05:39 Crenated Cell Not Reportable 01/15/18 05:39 Elliptocytes Not Reportable 01/15/18 05:39 Acanthocytes (Spur) Not Reportable 01/15/18 05:39 Rouleaux Not Reportable 01/15/18 05:39 Hemoglobin C Crystals Not Reportable 01/15/18 05:39 Schistocytes Not Reportable 01/15/18 05:39 Malaria parasites Not Reportable 01/15/18 05:39 Adriel Bodies Not Reportable 01/15/18 05:39 Hem Pathologist Commnt No 01/15/18 05:39 D-Dimer < 135.00 ng/mlDDU (0-234) 01/13/18 00:20 POC ABG pH 7.400 (7.35-7.45) 01/13/18 01:32 POC ABG pCO2 26.0 (35-45) L 01/13/18 01:32 POC ABG pO2 65 (80-105) L 01/13/18 01:32 POC ABG HCO3 16.1 01/13/18 01:32 POC ABG Total CO2 17 01/13/18 01:32 POC ABG O2 Sat 93 01/13/18 01:32 POC ABG Base Excess -9 01/13/18 01:32 FiO2 32 % 01/13/18 01:32 Sodium 139 mmol/L (137-145) 01/15/18 05:39 Potassium 4.0 mmol/L (3.6-5.0) 01/15/18 05:39 Chloride 109.5 mmol/L (98-107) H 01/15/18 05:39 Carbon Dioxide 19 mmol/L (22-30) L 01/15/18 05:39 Anion Gap 15 mmol/L 01/15/18 05:39 BUN 12 mg/dL (7-17) 01/15/18 05:39 Creatinine 0.7 mg/dL (0.7-1.2) 01/15/18 05:39 Estimated GFR > 60 ml/min 01/15/18 05:39 BUN/Creatinine Ratio 17 % 01/15/18 05:39 Glucose 87 mg/dL (65-100) 01/15/18 05:39 Lactic Acid 0.70 mmol/L (0.7-2.0) 01/13/18 05:06 Calcium 8.4 mg/dL (8.4-10.2) 01/15/18 05:39 Magnesium 1.90 mg/dL (1.7-2.3) 01/15/18 05:39 Total Bilirubin 0.70 mg/dL (0.1-1.2) 01/15/18 05:39 AST 63 units/L (5-40) H 01/15/18 05:39 ALT 31 units/L (7-56) 01/15/18 05:39 Alkaline Phosphatase 103 units/L (35-129) 01/15/18 05:39 Total Creatine Kinase 59 units/L (30-135) 01/13/18 00:20 CK-MB (CK-2) 1.3 ng/mL (0.0-4.0) 01/13/18 00:20 CK-MB (CK-2) Rel Index 2.2 (0-4) 01/13/18 00:20 Troponin T < 0.010 ng/mL (0.00-0.029) 01/13/18 00:20 Total Protein 6.6 g/dL (6.3-8.2) 01/15/18 05:39 Albumin 3.2 g/dL (3.9-5) L 01/15/18 05:39 Albumin/Globulin Ratio 0.9 % 01/15/18 05:39 Urine Color Yellow (Yellow) 01/12/18 01:05 Urine Turbidity Clear (Clear) 01/12/18 01:05 Urine pH 6.0 (5.0-7.0) 01/12/18 01:05 Ur Specific [place] 1.005 (1.003-1.030) 01/12/18 01:05 Urine Protein <15 mg/dl mg/dL (Negative) 01/12/18 01:05 Urine Glucose (UA) Neg mg/dL (Negative) 01/12/18 01:05 Urine Ketones Neg mg/dL (Negative) 01/12/18 01:05 Urine Blood Neg (Negative) 01/12/18 01:05 Urine Nitrite Neg (Negative) 01/12/18 01:05 Urine Bilirubin Neg (Negative) 01/12/18 01:05 Urine Urobilinogen < 2.0 mg/dL (<2.0) 01/12/18 01:05 Ur Leukocyte Esterase Neg (Negative) 01/12/18 01:05 Urine WBC (Auto) < 1.0 /HPF (0.0-6.0) 01/12/18 01:05 Urine RBC (Auto) 1.0 /HPF (0.0-6.0) 01/12/18 01:05 U Epithel Cells (Auto) < 1.0 /HPF (0-13.0) 01/12/18 01:05 Urine Opiates Screen Presumptive negative 01/12/18 01:05 Urine Methadone Screen Presumptive negative 01/12/18 01:05 Ur Barbiturates Screen Presumptive negative 01/12/18 01:05 Ur Phencyclidine Scrn Presumptive negative 01/12/18 01:05 Ur Amphetamines Screen Presumptive negative 01/12/18 01:05 U Benzodiazepines Scrn Presumptive negative 01/12/18 01:05 Urine Cocaine Screen Presumptive negative 01/12/18 01:05 U Marijuana (THC) Screen Presumptive negative 01/12/18 01:05 Drugs of Abuse Note Disclamer 01/12/18 01:05 Blood Type O POSITIVE 01/13/18 04:59 Antibody Screen Negative 01/13/18 04:59
[2018-01-17] MEDS: MAXIPIME/NS 2 GM/100 ML 2 GM/100 ML BAG IV SCH (22:03)
[2018-01-18 05:52] LABS: Hematocrit 34.8 % (30.3-42.9); Hemoglobin 11.6 gm/dl (10.1-14.3); Mean Corpuscular HGB Conc 33 % (30-34); Mean Corpuscular Hemoglobin 31 pg (28-32); Mean Corpuscular Volume 94 fl (79-97); Red Blood Count 3.71 M/mm3 (3.65-5.03); Red Cell Distribution Width 18.7 % (13.2-15.2)
[2018-01-18 05:55] LABS: Platelet Count 89 K/mm3 (140-440)
[2018-01-18] MEDS ORDERED: LOTRIMIN TP ONE (06:11)
[2018-01-18 06:14] LABS: Alanine Aminotransferase 31 units/L (7-56); Albumin 3.2 g/dL (3.9-5); BUN/Creatinine Ratio 23; Blood Urea Nitrogen 14 mg/dL (7-17); Calcium 8.9 mg/dL (8.4-10.2); Hemolysis Index 4
[2018-01-18 06:38] LABS: Basophils % (Manual) 0 % (0.0-1.8); Eosinophils % (Manual) 0 % (0.0-4.3); Total Cells Counted 25
[2018-01-18] MEDS: DUONEB *Not for PRN Use IH SCH ×3 (08:13→20:06)
--- NOTE | 2018-01-18 10:13 | Progress Note ---
Subjective - Reason for Consult Consult date: 01/18/18 Reason for consult: Psychiatry Follow-up - Chief Complaint Chief complaint: "Good morning" 52-year-old female presenting with a chief complaint of shortness of breath from [place]. Psychiatry was consulted to see patient reference SI's. Today the patient was calm and cooperative during the assessment. She stated that she feel better after doing some reflecting about her life. She stated that the voices has "decreased" and denies SI's when asked. She stated that she would need a referral to see a psychiatrist when discharged. She denies HI's and VH' s. She denies any side effects of her medications. Mental Status Exam - Vital signs Last Vital Signs Temp 98.0 F 01/18/18 05:39 Pulse 80 01/18/18 08:00 Resp 18 01/18/18 08:00 BP 94/55 01/18/18 05:39 Pulse Ox 94 01/18/18 08:17 - Exam Narrative exam: MSE: Appearance: calm, cooperative Behavior: regular eye contact Speech: regular rate and tone Mood: "better" Affect: congruent to mood Thought Process: linear Thought Content: denies SI/HI's and VH's Motor Activity: sitting up in bed Cognition: A/O x 3 Insight: fair Judgment: fair Assessment and Plan Impression: Unspecified Mood DO with psy features. Hx of substance abuse. Today the patient was calm and cooperative during the assessment. WBC's trending up 1.9. Medical: Hx of HIV/AIDS DDx: MDD with psychosis, R/O Bipolar DO, R/O Schizoaffective DO Recommendation/Plan: Reevaluate 1013 in 24 hours to determine proper dispo once medically clear. Continue home medications (Zoloft, Seroquel, and Effexor). Discussed metabolic side effects and possible agranulocytosis with patient reference Seroquel. The patient is on a low dose of Seroquel at this time. The benefit of Seroquel outweigh the risk, the patient is experiencing command AH' s.
[2018-01-18] MEDS: HCTZ PO SCH (11:38)
[2018-01-18] MEDS: MAXIPIME/NS 2 GM/100 ML 2 GM/100 ML BAG IV SCH ×2 (11:39→22:20)
[2018-01-18] MEDS: EFFEXOR PO SCH (11:39)
[2018-01-18] MEDS: ZOLOFT PO SCH (11:39)
[2018-01-18] MEDS: SODIUM CHLORIDE FLUSH SYRINGE 10 ML IV SCH ×2 (11:39→23:18)
[2018-01-18] MEDS: ZESTRIL PO SCH (11:40)
--- NOTE | 2018-01-18 13:23 | Progress Note ---
Assessment and Plan Assessment and plan: --Acute psychosis/auditory hallucinations Continue 1013 status, although psych evaluation and recommendations Possible discharge to inpatient psych facility once medically stable --Sepsis:/Low grade fever/leukopenia Cultures negative so far, patient is afebrile, no evidence of sepsis Received 3 days of cefepime, will resume cefepime, consult ID if needed --Leukopenia; probably secondary to underlying disease process As well as HIV-AIDS, closely monitor, continue antibiotics Hematology consult --Thrombocytopenia; probably secondary to underlying disease process Closely monitor, hematology consult --Lactic acidosis; resolved --Moderate malnutrition; supportive care nutrition supplements --DVT prophylaxis; no pharmacologic anticoagulation in view of thrombocytopenia , continue SCDs Continue 1013 status, follow psych evaluation and recommendations Patient will be transferred to inpatient psych facility once medically stable History Interval history: No new issues overnight. Hospitalist Physical - Constitutional Vitals: Temp Pulse Resp BP Pulse Ox 99.2 F 85 20 96/59 93 01/18/18 11:34 01/18/18 11:34 01/18/18 11:34 01/18/18 11:34 01/18/18 11:34 General appearance: Present: no acute distress, well-nourished - EENT Eyes: Present: PERRL, EOM intact ENT: hearing intact, clear oral mucosa, dentition normal - Neck Neck: Present: supple, normal ROM - Respiratory Respiratory effort: normal Respiratory: bilateral: CTA - Cardiovascular Rhythm: regular Heart Sounds: Present: S1 & S2. Absent: gallop, rub - Extremities Extremities: no ischemia, No edema, Full ROM - Abdominal General gastrointestinal: soft, non-tender, non-distended, normal bowel sounds - Integumentary Integumentary: Present: clear, warm, dry - Neurologic Neurologic: CNII-XII intact, moves all extremities Results - Labs CBC & Chem 7: 01/18/18 04:46 01/18/18 04:46 Labs: Laboratory Last Values WBC 1.9 K/mm3 (4.5-11.0) L* 01/18/18 04:46 RBC 3.71 M/mm3 (3.65-5.03) 01/18/18 04:46 Hgb 11.6 gm/dl (10.1-14.3) 01/18/18 04:46 Hct 34.8 % (30.3-42.9) 01/18/18 04:46 MCV 94 fl (79-97) 01/18/18 04:46 MCH 31 pg (28-32) 01/18/18 04:46 MCHC 33 % (30-34) 01/18/18 04:46 RDW 18.7 % (13.2-15.2) H 01/18/18 04:46 Plt Count 89 K/mm3 (140-440) L 01/18/18 04:46 Lymph % (Auto) 22.8 % (13.4-35.0) 01/13/18 00:06 [place] % (Auto) 10.5 % (0.0-7.3) H 01/13/18 00:06 Eos % (Auto) 1.0 % (0.0-4.3) 01/13/18 00:06 Baso % (Auto) 0.7 % (0.0-1.8) 01/13/18 00:06 Lymph # 0.6 K/mm3 (1.2-5.4) L 01/13/18 00:06 [place] # 0.3 K/mm3 (0.0-0.8) 01/13/18 00:06 Eos # 0.0 K/mm3 (0.0-0.4) 01/13/18 00:06 Baso # 0.0 K/mm3 (0.0-0.1) 01/13/18 00:06 Add Manual Diff Complete 01/18/18 04:46 Total Counted 25 01/18/18 04:46 Seg Neutrophils % 65.0 % (40.0-70.0) 01/13/18 00:06 Seg Neuts % (Manual) 52.0 % (40.0-70.0) 01/18/18 04:46 Band Neutrophils % 0 % 01/18/18 04:46 Lymphocytes % (Manual) 28.0 % (13.4-35.0) 01/18/18 04:46 Reactive Lymphs % (Man) 0 % 01/18/18 04:46 Monocytes % (Manual) 20.0 % (0.0-7.3) H 01/18/18 04:46 Eosinophils % (Manual) 0 % (0.0-4.3) 01/18/18 04:46 Basophils % (Manual) 0 % (0.0-1.8) 01/18/18 04:46 Metamyelocytes % 0 % 01/18/18 04:46 Myelocytes % 0 % 01/18/18 04:46 Promyelocytes % 0 % 01/18/18 04:46 Blast Cells % 0 % 01/18/18 04:46 Nucleated RBC % Not Reportable 01/18/18 04:46 Seg Neutrophils # 1.6 K/mm3 (1.8-7.7) L 01/13/18 00:06 Seg Neutrophils # Man 1.0 K/mm3 (1.8-7.7) L 01/18/18 04:46 Band Neutrophils # 0.0 K/mm3 01/18/18 04:46 Lymphocytes # (Manual) 0.5 K/mm3 (1.2-5.4) L 01/18/18 04:46 Abs React Lymphs (Man) 0.0 K/mm3 01/18/18 04:46 Monocytes # (Manual) 0.4 K/mm3 (0.0-0.8) 01/18/18 04:46 Eosinophils # (Manual) 0.0 K/mm3 (0.0-0.4) 01/18/18 04:46 Basophils # (Manual) 0.0 K/mm3 (0.0-0.1) 01/18/18 04:46 Metamyelocytes # 0.0 K/mm3 01/18/18 04:46 Myelocytes # 0.0 K/mm3 01/18/18 04:46 Promyelocytes # 0.0 K/mm3 01/18/18 04:46 Blast Cells # 0.0 K/mm3 01/18/18 04:46 WBC Morphology Not Reportable 01/18/18 04:46 Hypersegmented Neuts Not Reportable 01/18/18 04:46 Hyposegmented Neuts Not Reportable 01/18/18 04:46 Hypogranular Neuts Not Reportable 01/18/18 04:46 Smudge Cells Not Reportable 01/18/18 04:46 Toxic Granulation Not Reportable 01/18/18 04:46 Toxic Vacuolation Not Reportable 01/18/18 04:46 Dohle Bodies Not Reportable 01/18/18 04:46 Pelger-Huet Anomaly Not Reportable 01/18/18 04:46 Fredy Rods Not Reportable 01/18/18 04:46 Platelet Estimate d 01/18/18 04:46 Clumped Platelets Not Reportable 01/18/18 04:46 Plt Clumps, EDTA Not Reportable 01/18/18 04:46 Large Platelets Not Reportable 01/18/18 04:46 Giant Platelets Not Reportable 01/18/18 04:46 Platelet Satelliting Not Reportable 01/18/18 04:46 Plt Morphology Comment Not Reportable 01/18/18 04:46 RBC Morphology Not Reportable 01/18/18 04:46 Dimorphic RBCs Not Reportable 01/18/18 04:46 Polychromasia Not Reportable 01/18/18 04:46 Hypochromasia Not Reportable 01/18/18 04:46 Poikilocytosis Not Reportable 01/18/18 04:46 Anisocytosis Not Reportable 01/18/18 04:46 Microcytosis Not Reportable 01/18/18 04:46 Macrocytosis Not Reportable 01/18/18 04:46 Spherocytes Not Reportable 01/18/18 04:46 Pappenheimer Bodies Not Reportable 01/18/18 04:46 Sickle Cells Not Reportable 01/18/18 04:46 Target Cells Not Reportable 01/18/18 04:46 Tear Drop Cells Not Reportable 01/18/18 04:46 Ovalocytes Not Reportable 01/18/18 04:46 Helmet Cells Not Reportable 01/18/18 04:46 Pa-[place] Bodies Not Reportable 01/18/18 04:46 [place] Rings Not Reportable 01/18/18 04:46 [place] Cells Not Reportable 01/18/18 04:46 Bite Cells Not Reportable 01/18/18 04:46 Crenated Cell Not Reportable 01/18/18 04:46 Elliptocytes Not Reportable 01/18/18 04:46 Acanthocytes (Spur) Not Reportable 01/18/18 04:46 Rouleaux Not Reportable 01/18/18 04:46 Hemoglobin C Crystals Not Reportable 01/18/18 04:46 Schistocytes Not Reportable 01/18/18 04:46 Malaria parasites Not Reportable 01/18/18 04:46 Adriel Bodies Not Reportable 01/18/18 04:46 Hem Pathologist Commnt n 01/18/18 04:46 D-Dimer < 135.00 ng/mlDDU (0-234) 01/13/18 00:20 POC ABG pH 7.400 (7.35-7.45) 01/13/18 01:32 POC ABG pCO2 26.0 (35-45) L 01/13/18 01:32 POC ABG pO2 65 (80-105) L 01/13/18 01:32 POC ABG HCO3 16.1 01/13/18 01:32 POC ABG Total CO2 17 01/13/18 01:32 POC ABG O2 Sat 93 01/13/18 01:32 POC ABG Base Excess -9 01/13/18 01:32 FiO2 32 % 01/13/18 01:32 Sodium 141 mmol/L (137-145) 01/18/18 04:46 Potassium 4.0 mmol/L (3.6-5.0) 01/18/18 04:46 Chloride 108.1 mmol/L (98-107) H 01/18/18 04:46 Carbon Dioxide 21 mmol/L (22-30) L 01/18/18 04:46 Anion Gap 16 mmol/L 01/18/18 04:46 BUN 14 mg/dL (7-17) 01/18/18 04:46 Creatinine 0.6 mg/dL (0.7-1.2) L 01/18/18 04:46 Estimated GFR > 60 ml/min 01/18/18 04:46 BUN/Creatinine Ratio 23 % 01/18/18 04:46 Glucose 85 mg/dL (65-100) 01/18/18 04:46 Lactic Acid 0.70 mmol/L (0.7-2.0) 01/13/18 05:06 Calcium 8.9 mg/dL (8.4-10.2) 01/18/18 04:46 Magnesium 1.90 mg/dL (1.7-2.3) 01/15/18 05:39 Total Bilirubin 0.60 mg/dL (0.1-1.2) 01/18/18 04:46 AST 70 units/L (5-40) H 01/18/18 04:46 ALT 31 units/L (7-56) 01/18/18 04:46 Alkaline Phosphatase 125 units/L (35-129) 01/18/18 04:46 Total Creatine Kinase 59 units/L (30-135) 01/13/18 00:20 CK-MB (CK-2) 1.3 ng/mL (0.0-4.0) 01/13/18 00:20 CK-MB (CK-2) Rel Index 2.2 (0-4) 01/13/18 00:20 Troponin T < 0.010 ng/mL (0.00-0.029) 01/13/18 00:20 Total Protein 7.1 g/dL (6.3-8.2) 01/18/18 04:46 Albumin 3.2 g/dL (3.9-5) L 01/18/18 04:46 Albumin/Globulin Ratio 0.8 % 01/18/18 04:46 Urine Color Yellow (Yellow) 01/12/18 01:05 Urine Turbidity Clear (Clear) 01/12/18 01:05 Urine pH 6.0 (5.0-7.0) 01/12/18 01:05 Ur Specific [place] 1.005 (1.003-1.030) 01/12/18 01:05 Urine Protein <15 mg/dl mg/dL (Negative) 01/12/18 01:05 Urine Glucose (UA) Neg mg/dL (Negative) 01/12/18 01:05 Urine Ketones Neg mg/dL (Negative) 01/12/18 01:05 Urine Blood Neg (Negative) 01/12/18 01:05 Urine Nitrite Neg (Negative) 01/12/18 01:05 Urine Bilirubin Neg (Negative) 01/12/18 01:05 Urine Urobilinogen < 2.0 mg/dL (<2.0) 01/12/18 01:05 Ur Leukocyte Esterase Neg (Negative) 01/12/18 01:05 Urine WBC (Auto) < 1.0 /HPF (0.0-6.0) 01/12/18 01:05 Urine RBC (Auto) 1.0 /HPF (0.0-6.0) 01/12/18 01:05 U Epithel Cells (Auto) < 1.0 /HPF (0-13.0) 01/12/18 01:05 Urine Opiates Screen Presumptive negative 01/12/18 01:05 Urine Methadone Screen Presumptive negative 01/12/18 01:05 Ur Barbiturates Screen Presumptive negative 01/12/18 01:05 Ur Phencyclidine Scrn Presumptive negative 01/12/18 01:05 Ur Amphetamines Screen Presumptive negative 01/12/18 01:05 U Benzodiazepines Scrn Presumptive negative 01/12/18 01:05 Urine Cocaine Screen Presumptive negative 01/12/18 01:05 U Marijuana (THC) Screen Presumptive negative 01/12/18 01:05 Drugs of Abuse Note Disclamer 01/12/18 01:05 Blood Type O POSITIVE 01/13/18 04:59 Antibody Screen Negative 01/13/18 04:59
[2018-01-18] MEDS: MYCELEX VG SCH (22:21)
[2018-01-19] MEDS: DUONEB *Not for PRN Use IH SCH ×3 (08:31→22:50)
[2018-01-19] MEDS: MAXIPIME/NS 2 GM/100 ML 2 GM/100 ML BAG IV SCH ×2 (09:41→22:28)
[2018-01-19] MEDS: EFFEXOR PO SCH (09:42)
[2018-01-19] MEDS: SODIUM CHLORIDE FLUSH SYRINGE 10 ML IV SCH ×2 (09:42→22:29)
[2018-01-19] MEDS: ZOLOFT PO SCH (09:42)
[2018-01-19] MEDS: HCTZ PO SCH (09:43)
[2018-01-19] MEDS: ZESTRIL PO SCH (09:43)
--- NOTE | 2018-01-19 12:02 | Progress Note ---
Assessment and Plan Assessment and plan: --Acute psychosis/auditory hallucinations Continue 1013 status, although psych evaluation and recommendations Possible discharge to inpatient psych facility once medically stable --Sepsis:/Low grade fever/leukopenia Continue antibiotics. --Leukopenia; probably secondary to underlying disease process As well as HIV-AIDS, closely monitor, continue antibiotics Hematology consult --Thrombocytopenia; probably secondary to underlying disease process Closely monitor, hematology consult --Lactic acidosis; resolved --Moderate malnutrition; supportive care nutrition supplements --DVT prophylaxis; no pharmacologic anticoagulation in view of thrombocytopenia , continue SCDs Continue 1013 status, follow psych evaluation and recommendations Patient will be transferred to inpatient psych facility once medically stable History Interval history: No new issues overnight. Hospitalist Physical - Constitutional Vitals: Temp Pulse Resp BP Pulse Ox 98.1 F 89 18 99/59 92 01/18/18 23:18 01/19/18 08:40 01/19/18 08:40 01/18/18 23:18 01/19/18 10:00 General appearance: Present: no acute distress, well-nourished - EENT Eyes: Present: PERRL, EOM intact ENT: hearing intact, clear oral mucosa, dentition normal - Neck Neck: Present: supple, normal ROM - Respiratory Respiratory effort: normal Respiratory: bilateral: CTA - Cardiovascular Rhythm: regular Heart Sounds: Present: S1 & S2. Absent: gallop, rub - Extremities Extremities: no ischemia, No edema, Full ROM - Abdominal General gastrointestinal: soft, non-tender, non-distended, normal bowel sounds - Integumentary Integumentary: Present: clear, warm, dry - Neurologic Neurologic: CNII-XII intact, moves all extremities Results - Labs CBC & Chem 7: 01/18/18 04:46 01/18/18 04:46 Labs: Laboratory Last Values WBC 1.9 K/mm3 (4.5-11.0) L* 01/18/18 04:46 RBC 3.71 M/mm3 (3.65-5.03) 01/18/18 04:46 Hgb 11.6 gm/dl (10.1-14.3) 01/18/18 04:46 Hct 34.8 % (30.3-42.9) 01/18/18 04:46 MCV 94 fl (79-97) 01/18/18 04:46 MCH 31 pg (28-32) 01/18/18 04:46 MCHC 33 % (30-34) 01/18/18 04:46 RDW 18.7 % (13.2-15.2) H 01/18/18 04:46 Plt Count 89 K/mm3 (140-440) L 01/18/18 04:46 Lymph % (Auto) 22.8 % (13.4-35.0) 01/13/18 00:06 [place] % (Auto) 10.5 % (0.0-7.3) H 01/13/18 00:06 Eos % (Auto) 1.0 % (0.0-4.3) 01/13/18 00:06 Baso % (Auto) 0.7 % (0.0-1.8) 01/13/18 00:06 Lymph # 0.6 K/mm3 (1.2-5.4) L 01/13/18 00:06 [place] # 0.3 K/mm3 (0.0-0.8) 01/13/18 00:06 Eos # 0.0 K/mm3 (0.0-0.4) 01/13/18 00:06 Baso # 0.0 K/mm3 (0.0-0.1) 01/13/18 00:06 Add Manual Diff Complete 01/18/18 04:46 Total Counted 25 01/18/18 04:46 Seg Neutrophils % 65.0 % (40.0-70.0) 01/13/18 00:06 Seg Neuts % (Manual) 52.0 % (40.0-70.0) 01/18/18 04:46 Band Neutrophils % 0 % 01/18/18 04:46 Lymphocytes % (Manual) 28.0 % (13.4-35.0) 01/18/18 04:46 Reactive Lymphs % (Man) 0 % 01/18/18 04:46 Monocytes % (Manual) 20.0 % (0.0-7.3) H 01/18/18 04:46 Eosinophils % (Manual) 0 % (0.0-4.3) 01/18/18 04:46 Basophils % (Manual) 0 % (0.0-1.8) 01/18/18 04:46 Metamyelocytes % 0 % 01/18/18 04:46 Myelocytes % 0 % 01/18/18 04:46 Promyelocytes % 0 % 01/18/18 04:46 Blast Cells % 0 % 01/18/18 04:46 Nucleated RBC % Not Reportable 01/18/18 04:46 Seg Neutrophils # 1.6 K/mm3 (1.8-7.7) L 01/13/18 00:06 Seg Neutrophils # Man 1.0 K/mm3 (1.8-7.7) L 01/18/18 04:46 Band Neutrophils # 0.0 K/mm3 01/18/18 04:46 Lymphocytes # (Manual) 0.5 K/mm3 (1.2-5.4) L 01/18/18 04:46 Abs React Lymphs (Man) 0.0 K/mm3 01/18/18 04:46 Monocytes # (Manual) 0.4 K/mm3 (0.0-0.8) 01/18/18 04:46 Eosinophils # (Manual) 0.0 K/mm3 (0.0-0.4) 01/18/18 04:46 Basophils # (Manual) 0.0 K/mm3 (0.0-0.1) 01/18/18 04:46 Metamyelocytes # 0.0 K/mm3 01/18/18 04:46 Myelocytes # 0.0 K/mm3 01/18/18 04:46 Promyelocytes # 0.0 K/mm3 01/18/18 04:46 Blast Cells # 0.0 K/mm3 01/18/18 04:46 WBC Morphology Not Reportable 01/18/18 04:46 Hypersegmented Neuts Not Reportable 01/18/18 04:46 Hyposegmented Neuts Not Reportable 01/18/18 04:46 Hypogranular Neuts Not Reportable 01/18/18 04:46 Smudge Cells Not Reportable 01/18/18 04:46 Toxic Granulation Not Reportable 01/18/18 04:46 Toxic Vacuolation Not Reportable 01/18/18 04:46 Dohle Bodies Not Reportable 01/18/18 04:46 Pelger-Huet Anomaly Not Reportable 01/18/18 04:46 Fredy Rods Not Reportable 01/18/18 04:46 Platelet Estimate d 01/18/18 04:46 Clumped Platelets Not Reportable 01/18/18 04:46 Plt Clumps, EDTA Not Reportable 01/18/18 04:46 Large Platelets Not Reportable 01/18/18 04:46 Giant Platelets Not Reportable 01/18/18 04:46 Platelet Satelliting Not Reportable 01/18/18 04:46 Plt Morphology Comment Not Reportable 01/18/18 04:46 RBC Morphology Not Reportable 01/18/18 04:46 Dimorphic RBCs Not Reportable 01/18/18 04:46 Polychromasia Not Reportable 01/18/18 04:46 Hypochromasia Not Reportable 01/18/18 04:46 Poikilocytosis Not Reportable 01/18/18 04:46 Anisocytosis Not Reportable 01/18/18 04:46 Microcytosis Not Reportable 01/18/18 04:46 Macrocytosis Not Reportable 01/18/18 04:46 Spherocytes Not Reportable 01/18/18 04:46 Pappenheimer Bodies Not Reportable 01/18/18 04:46 Sickle Cells Not Reportable 01/18/18 04:46 Target Cells Not Reportable 01/18/18 04:46 Tear Drop Cells Not Reportable 01/18/18 04:46 Ovalocytes Not Reportable 01/18/18 04:46 Helmet Cells Not Reportable 01/18/18 04:46 Pa-[place] Bodies Not Reportable 01/18/18 04:46 [place] Rings Not Reportable 01/18/18 04:46 [place] Cells Not Reportable 01/18/18 04:46 Bite Cells Not Reportable 01/18/18 04:46 Crenated Cell Not Reportable 01/18/18 04:46 Elliptocytes Not Reportable 01/18/18 04:46 Acanthocytes (Spur) Not Reportable 01/18/18 04:46 Rouleaux Not Reportable 01/18/18 04:46 Hemoglobin C Crystals Not Reportable 01/18/18 04:46 Schistocytes Not Reportable 01/18/18 04:46 Malaria parasites Not Reportable 01/18/18 04:46 Adriel Bodies Not Reportable 01/18/18 04:46 Hem Pathologist Commnt n 01/18/18 04:46 D-Dimer < 135.00 ng/mlDDU (0-234) 01/13/18 00:20 POC ABG pH 7.400 (7.35-7.45) 01/13/18 01:32 POC ABG pCO2 26.0 (35-45) L 01/13/18 01:32 POC ABG pO2 65 (80-105) L 01/13/18 01:32 POC ABG HCO3 16.1 01/13/18 01:32 POC ABG Total CO2 17 01/13/18 01:32 POC ABG O2 Sat 93 01/13/18 01:32 POC ABG Base Excess -9 01/13/18 01:32 FiO2 32 % 01/13/18 01:32 Sodium 141 mmol/L (137-145) 01/18/18 04:46 Potassium 4.0 mmol/L (3.6-5.0) 01/18/18 04:46 Chloride 108.1 mmol/L (98-107) H 01/18/18 04:46 Carbon Dioxide 21 mmol/L (22-30) L 01/18/18 04:46 Anion Gap 16 mmol/L 01/18/18 04:46 BUN 14 mg/dL (7-17) 01/18/18 04:46 Creatinine 0.6 mg/dL (0.7-1.2) L 01/18/18 04:46 Estimated GFR > 60 ml/min 01/18/18 04:46 BUN/Creatinine Ratio 23 % 01/18/18 04:46 Glucose 85 mg/dL (65-100) 01/18/18 04:46 Lactic Acid 0.70 mmol/L (0.7-2.0) 01/13/18 05:06 Calcium 8.9 mg/dL (8.4-10.2) 01/18/18 04:46 Magnesium 1.90 mg/dL (1.7-2.3) 01/15/18 05:39 Total Bilirubin 0.60 mg/dL (0.1-1.2) 01/18/18 04:46 AST 70 units/L (5-40) H 01/18/18 04:46 ALT 31 units/L (7-56) 01/18/18 04:46 Alkaline Phosphatase 125 units/L (35-129) 01/18/18 04:46 Total Creatine Kinase 59 units/L (30-135) 01/13/18 00:20 CK-MB (CK-2) 1.3 ng/mL (0.0-4.0) 01/13/18 00:20 CK-MB (CK-2) Rel Index 2.2 (0-4) 01/13/18 00:20 Troponin T < 0.010 ng/mL (0.00-0.029) 01/13/18 00:20 Total Protein 7.1 g/dL (6.3-8.2) 01/18/18 04:46 Albumin 3.2 g/dL (3.9-5) L 01/18/18 04:46 Albumin/Globulin Ratio 0.8 % 01/18/18 04:46 Urine Color Yellow (Yellow) 01/12/18 01:05 Urine Turbidity Clear (Clear) 01/12/18 01:05 Urine pH 6.0 (5.0-7.0) 01/12/18 01:05 Ur Specific [place] 1.005 (1.003-1.030) 01/12/18 01:05 Urine Protein <15 mg/dl mg/dL (Negative) 01/12/18 01:05 Urine Glucose (UA) Neg mg/dL (Negative) 01/12/18 01:05 Urine Ketones Neg mg/dL (Negative) 01/12/18 01:05 Urine Blood Neg (Negative) 01/12/18 01:05 Urine Nitrite Neg (Negative) 01/12/18 01:05 Urine Bilirubin Neg (Negative) 01/12/18 01:05 Urine Urobilinogen < 2.0 mg/dL (<2.0) 01/12/18 01:05 Ur Leukocyte Esterase Neg (Negative) 01/12/18 01:05 Urine WBC (Auto) < 1.0 /HPF (0.0-6.0) 01/12/18 01:05 Urine RBC (Auto) 1.0 /HPF (0.0-6.0) 01/12/18 01:05 U Epithel Cells (Auto) < 1.0 /HPF (0-13.0) 01/12/18 01:05 Urine Opiates Screen Presumptive negative 01/12/18 01:05 Urine Methadone Screen Presumptive negative 01/12/18 01:05 Ur Barbiturates Screen Presumptive negative 01/12/18 01:05 Ur Phencyclidine Scrn Presumptive negative 01/12/18 01:05 Ur Amphetamines Screen Presumptive negative 01/12/18 01:05 U Benzodiazepines Scrn Presumptive negative 01/12/18 01:05 Urine Cocaine Screen Presumptive negative 01/12/18 01:05 U Marijuana (THC) Screen Presumptive negative 01/12/18 01:05 Drugs of Abuse Note Disclamer 01/12/18 01:05 Blood Type O POSITIVE 01/13/18 04:59 Antibody Screen Negative 01/13/18 04:59
--- NOTE | 2018-01-19 20:53 | Progress Note ---
Subjective - Reason for Consult Consult date: 01/19/18 Reason for consult: Psychiatric Follow-up Evaluation - Chief Complaint Chief complaint: "I'm feeling okay." 52-year-old female presenting with a chief complaint of shortness of breath from [place]. Psychiatry was consulted to see patient reference SI's. Today the patient was calm and cooperative during the assessment. She stated that she feel better after doing some reflecting about her life. She stated that the voices has "decreased" and denies SI's when asked. She stated that she would need a referral to see a psychiatrist when discharged. She denies HI's and VH' s. She denies any side effects of her medications. Mental Status Exam - Vital signs Last Vital Signs Temp 98.1 F 01/18/18 23:18 Pulse 95 H 01/19/18 15:00 Resp 18 01/19/18 15:00 BP 99/59 01/18/18 23:18 Pulse Ox 92 01/19/18 10:00 Assessment and Plan Impression: Unspecified Mood DO with psy features. Hx of substance abuse. Today the patient was calm and cooperative during the assessment. WBC's trending up 1.9. Medical: Hx of HIV/AIDS DDx: MDD with psychosis, R/O Bipolar DO, R/O Schizoaffective DO Recommendation/Plan: 1. Reevaluate 1013 in 24 hours to determine proper dispo once medically clear. 2. Continue home medications (Zoloft, Seroquel, and Effexor). Discussed metabolic side effects and possible agranulocytosis with patient reference Seroquel. The patient is on a low dose of Seroquel at this time. The benefit of Seroquel outweigh the risk, the patient is experiencing command AH's. 3. Will continue to monitor mood, psychosis, sleep, appetite, compliance, and side effects.
[2018-01-19] MEDS: MYCELEX VG SCH (22:29)
[2018-01-20] MEDS: DUONEB *Not for PRN Use IH SCH ×3 (08:59→20:28)
--- NOTE | 2018-01-20 10:08 | Progress Note ---
Subjective - Reason for Consult Consult date: 01/20/18 Reason for consult: Psychiatry Following - Chief Complaint Chief complaint: "I feel so much" 52-year-old female presenting with a chief complaint of shortness of breath from [place]. Psychiatry was consulted to see patient reference SI's. Today the patient was calm and cooperative during the assessment. She stated resting well the past several nights. She denies SI/HI's and AVH's. She denies any side effects of her mediations. She stated that she will need a referral to a psychiatrist for outpatient psy services. Mental Status Exam - Vital signs Last Vital Signs Temp 97.9 F 01/20/18 06:24 Pulse 86 01/20/18 09:12 Resp 20 01/20/18 09:12 BP 109/61 01/20/18 06:24 Pulse Ox 95 01/20/18 09:06 - Exam Narrative exam: MSE: Appearance: calm, cooperative Behavior: regular eye contact Speech: regular rate and tone Mood: "okay" Affect: congruent to mood Thought Process: linear Thought Content: denies SI/HI's and VH's Motor Activity: sitting up in bed Cognition: A/O x 3 Insight: appropriate Judgment: appropriate Assessment and Plan Impression: Unspecified Mood DO with psy features. Hx of substance abuse. Today the patient was calm and cooperative during the assessment. WBC's trending up 1.9. The patient is no threat to self. Medical: Hx of HIV/AIDS DDx: MDD with psychosis, R/O Bipolar DO, R/O Schizoaffective DO Recommendation/Plan: Rescind 1013. Continue home medications (Zoloft, Seroquel, and Effexor). Discussed possible metabolic side effects and agranulocytosis side effects with patient reference Seroquel. The patient is on a low dose of Seroquel at this time. The benefit of Seroquel outweigh the risk at this time. The patient can follow up with [facility] for outpatient psy services.
[2018-01-20] MEDS: ZOLOFT PO SCH (10:13)
[2018-01-20] MEDS: MAXIPIME/NS 2 GM/100 ML 2 GM/100 ML BAG IV SCH ×2 (10:14→22:29)
[2018-01-20] MEDS: EFFEXOR PO SCH (10:14)
[2018-01-20] MEDS: HCTZ PO SCH ×2 (10:14→10:21)
[2018-01-20] MEDS: SODIUM CHLORIDE FLUSH SYRINGE 10 ML IV SCH ×2 (10:15→22:29)
[2018-01-20] MEDS: ZESTRIL PO SCH (10:21)
[2018-01-20] MEDS ORDERED: GRANIX SUB-Q ONE ×2 (13:55→18:00)
--- NOTE | 2018-01-20 13:59 | Progress Note ---
Assessment and Plan Assessment and plan: --Acute psychosis/auditory hallucinations Continue 1013 status, although psych evaluation and recommendations Possible discharge to inpatient psych facility once medically stable --Sepsis:/Low grade fever/leukopenia Continue antibiotics. --Leukopenia; probably secondary to underlying disease process As well as HIV-AIDS, closely monitor, continue antibiotics Hematology consulted --Thrombocytopenia; probably secondary to underlying disease process Closely monitor, hematology consult --Lactic acidosis; resolved --Moderate malnutrition; supportive care nutrition supplements --DVT prophylaxis; no pharmacologic anticoagulation in view of thrombocytopenia , continue SCDs --Psychiatry has rescinded 1013 status, follow psych evaluation and recommendations --Disposition. Anticipate discharge in a.m. History Interval history: No new issues overnight. Hospitalist Physical - Constitutional Vitals: Temp Pulse Resp BP Pulse Ox 98.0 F 80 20 98/58 92 01/20/18 10:12 01/20/18 10:12 01/20/18 10:12 01/20/18 10:21 01/20/18 10:12 General appearance: Present: no acute distress, well-nourished - EENT Eyes: Present: PERRL, EOM intact ENT: hearing intact, clear oral mucosa, dentition normal - Neck Neck: Present: supple, normal ROM - Respiratory Respiratory effort: normal Respiratory: bilateral: CTA - Cardiovascular Rhythm: regular Heart Sounds: Present: S1 & S2. Absent: gallop, rub - Extremities Extremities: no ischemia, No edema, Full ROM - Abdominal General gastrointestinal: soft, non-tender, non-distended, normal bowel sounds - Integumentary Integumentary: Present: clear, warm, dry - Neurologic Neurologic: CNII-XII intact, moves all extremities Results - Labs CBC & Chem 7: 01/18/18 04:46 01/18/18 04:46 Labs: Laboratory Last Values WBC 1.9 K/mm3 (4.5-11.0) L* 01/18/18 04:46 RBC 3.71 M/mm3 (3.65-5.03) 01/18/18 04:46 Hgb 11.6 gm/dl (10.1-14.3) 01/18/18 04:46 Hct 34.8 % (30.3-42.9) 01/18/18 04:46 MCV 94 fl (79-97) 01/18/18 04:46 MCH 31 pg (28-32) 01/18/18 04:46 MCHC 33 % (30-34) 01/18/18 04:46 RDW 18.7 % (13.2-15.2) H 01/18/18 04:46 Plt Count 89 K/mm3 (140-440) L 01/18/18 04:46 Lymph % (Auto) 22.8 % (13.4-35.0) 01/13/18 00:06 [place] % (Auto) 10.5 % (0.0-7.3) H 01/13/18 00:06 Eos % (Auto) 1.0 % (0.0-4.3) 01/13/18 00:06 Baso % (Auto) 0.7 % (0.0-1.8) 01/13/18 00:06 Lymph # 0.6 K/mm3 (1.2-5.4) L 01/13/18 00:06 [place] # 0.3 K/mm3 (0.0-0.8) 01/13/18 00:06 Eos # 0.0 K/mm3 (0.0-0.4) 01/13/18 00:06 Baso # 0.0 K/mm3 (0.0-0.1) 01/13/18 00:06 Add Manual Diff Complete 01/18/18 04:46 Total Counted 25 01/18/18 04:46 Seg Neutrophils % 65.0 % (40.0-70.0) 01/13/18 00:06 Seg Neuts % (Manual) 52.0 % (40.0-70.0) 01/18/18 04:46 Band Neutrophils % 0 % 01/18/18 04:46 Lymphocytes % (Manual) 28.0 % (13.4-35.0) 01/18/18 04:46 Reactive Lymphs % (Man) 0 % 01/18/18 04:46 Monocytes % (Manual) 20.0 % (0.0-7.3) H 01/18/18 04:46 Eosinophils % (Manual) 0 % (0.0-4.3) 01/18/18 04:46 Basophils % (Manual) 0 % (0.0-1.8) 01/18/18 04:46 Metamyelocytes % 0 % 01/18/18 04:46 Myelocytes % 0 % 01/18/18 04:46 Promyelocytes % 0 % 01/18/18 04:46 Blast Cells % 0 % 01/18/18 04:46 Nucleated RBC % Not Reportable 01/18/18 04:46 Seg Neutrophils # 1.6 K/mm3 (1.8-7.7) L 01/13/18 00:06 Seg Neutrophils # Man 1.0 K/mm3 (1.8-7.7) L 01/18/18 04:46 Band Neutrophils # 0.0 K/mm3 01/18/18 04:46 Lymphocytes # (Manual) 0.5 K/mm3 (1.2-5.4) L 01/18/18 04:46 Abs React Lymphs (Man) 0.0 K/mm3 01/18/18 04:46 Monocytes # (Manual) 0.4 K/mm3 (0.0-0.8) 01/18/18 04:46 Eosinophils # (Manual) 0.0 K/mm3 (0.0-0.4) 01/18/18 04:46 Basophils # (Manual) 0.0 K/mm3 (0.0-0.1) 01/18/18 04:46 Metamyelocytes # 0.0 K/mm3 01/18/18 04:46 Myelocytes # 0.0 K/mm3 01/18/18 04:46 Promyelocytes # 0.0 K/mm3 01/18/18 04:46 Blast Cells # 0.0 K/mm3 01/18/18 04:46 WBC Morphology Not Reportable 01/18/18 04:46 Hypersegmented Neuts Not Reportable 01/18/18 04:46 Hyposegmented Neuts Not Reportable 01/18/18 04:46 Hypogranular Neuts Not Reportable 01/18/18 04:46 Smudge Cells Not Reportable 01/18/18 04:46 Toxic Granulation Not Reportable 01/18/18 04:46 Toxic Vacuolation Not Reportable 01/18/18 04:46 Dohle Bodies Not Reportable 01/18/18 04:46 Pelger-Huet Anomaly Not Reportable 01/18/18 04:46 Fredy Rods Not Reportable 01/18/18 04:46 Platelet Estimate d 01/18/18 04:46 Clumped Platelets Not Reportable 01/18/18 04:46 Plt Clumps, EDTA Not Reportable 01/18/18 04:46 Large Platelets Not Reportable 01/18/18 04:46 Giant Platelets Not Reportable 01/18/18 04:46 Platelet Satelliting Not Reportable 01/18/18 04:46 Plt Morphology Comment Not Reportable 01/18/18 04:46 RBC Morphology Not Reportable 01/18/18 04:46 Dimorphic RBCs Not Reportable 01/18/18 04:46 Polychromasia Not Reportable 01/18/18 04:46 Hypochromasia Not Reportable 01/18/18 04:46 Poikilocytosis Not Reportable 01/18/18 04:46 Anisocytosis Not Reportable 01/18/18 04:46 Microcytosis Not Reportable 01/18/18 04:46 Macrocytosis Not Reportable 01/18/18 04:46 Spherocytes Not Reportable 01/18/18 04:46 Pappenheimer Bodies Not Reportable 01/18/18 04:46 Sickle Cells Not Reportable 01/18/18 04:46 Target Cells Not Reportable 01/18/18 04:46 Tear Drop Cells Not Reportable 01/18/18 04:46 Ovalocytes Not Reportable 01/18/18 04:46 Helmet Cells Not Reportable 01/18/18 04:46 Pa-Azle Bodies Not Reportable 01/18/18 04:46 [place] Rings Not Reportable 01/18/18 04:46 [place] Cells Not Reportable 01/18/18 04:46 Bite Cells Not Reportable 01/18/18 04:46 Crenated Cell Not Reportable 01/18/18 04:46 Elliptocytes Not Reportable 01/18/18 04:46 Acanthocytes (Spur) Not Reportable 01/18/18 04:46 Rouleaux Not Reportable 01/18/18 04:46 Hemoglobin C Crystals Not Reportable 01/18/18 04:46 Schistocytes Not Reportable 01/18/18 04:46 Malaria parasites Not Reportable 01/18/18 04:46 Adriel Bodies Not Reportable 01/18/18 04:46 Hem Pathologist Commnt n 01/18/18 04:46 D-Dimer < 135.00 ng/mlDDU (0-234) 01/13/18 00:20 POC ABG pH 7.400 (7.35-7.45) 01/13/18 01:32 POC ABG pCO2 26.0 (35-45) L 01/13/18 01:32 POC ABG pO2 65 (80-105) L 01/13/18 01:32 POC ABG HCO3 16.1 01/13/18 01:32 POC ABG Total CO2 17 01/13/18 01:32 POC ABG O2 Sat 93 01/13/18 01:32 POC ABG Base Excess -9 01/13/18 01:32 FiO2 32 % 01/13/18 01:32 Sodium 141 mmol/L (137-145) 01/18/18 04:46 Potassium 4.0 mmol/L (3.6-5.0) 01/18/18 04:46 Chloride 108.1 mmol/L (98-107) H 01/18/18 04:46 Carbon Dioxide 21 mmol/L (22-30) L 01/18/18 04:46 Anion Gap 16 mmol/L 01/18/18 04:46 BUN 14 mg/dL (7-17) 01/18/18 04:46 Creatinine 0.6 mg/dL (0.7-1.2) L 01/18/18 04:46 Estimated GFR > 60 ml/min 01/18/18 04:46 BUN/Creatinine Ratio 23 % 01/18/18 04:46 Glucose 85 mg/dL (65-100) 01/18/18 04:46 Lactic Acid 0.70 mmol/L (0.7-2.0) 01/13/18 05:06 Calcium 8.9 mg/dL (8.4-10.2) 01/18/18 04:46 Magnesium 1.90 mg/dL (1.7-2.3) 01/15/18 05:39 Total Bilirubin 0.60 mg/dL (0.1-1.2) 01/18/18 04:46 AST 70 units/L (5-40) H 01/18/18 04:46 ALT 31 units/L (7-56) 01/18/18 04:46 Alkaline Phosphatase 125 units/L (35-129) 01/18/18 04:46 Total Creatine Kinase 59 units/L (30-135) 01/13/18 00:20 CK-MB (CK-2) 1.3 ng/mL (0.0-4.0) 01/13/18 00:20 CK-MB (CK-2) Rel Index 2.2 (0-4) 01/13/18 00:20 Troponin T < 0.010 ng/mL (0.00-0.029) 01/13/18 00:20 Total Protein 7.1 g/dL (6.3-8.2) 01/18/18 04:46 Albumin 3.2 g/dL (3.9-5) L 01/18/18 04:46 Albumin/Globulin Ratio 0.8 % 01/18/18 04:46 Urine Color Yellow (Yellow) 01/12/18 01:05 Urine Turbidity Clear (Clear) 01/12/18 01:05 Urine pH 6.0 (5.0-7.0) 01/12/18 01:05 Ur Specific [place] 1.005 (1.003-1.030) 01/12/18 01:05 Urine Protein <15 mg/dl mg/dL (Negative) 01/12/18 01:05 Urine Glucose (UA) Neg mg/dL (Negative) 01/12/18 01:05 Urine Ketones Neg mg/dL (Negative) 01/12/18 01:05 Urine Blood Neg (Negative) 01/12/18 01:05 Urine Nitrite Neg (Negative) 01/12/18 01:05 Urine Bilirubin Neg (Negative) 01/12/18 01:05 Urine Urobilinogen < 2.0 mg/dL (<2.0) 01/12/18 01:05 Ur Leukocyte Esterase Neg (Negative) 01/12/18 01:05 Urine WBC (Auto) < 1.0 /HPF (0.0-6.0) 01/12/18 01:05 Urine RBC (Auto) 1.0 /HPF (0.0-6.0) 01/12/18 01:05 U Epithel Cells (Auto) < 1.0 /HPF (0-13.0) 01/12/18 01:05 Urine Opiates Screen Presumptive negative 01/12/18 01:05 Urine Methadone Screen Presumptive negative 01/12/18 01:05 Ur Barbiturates Screen Presumptive negative 01/12/18 01:05 Ur Phencyclidine Scrn Presumptive negative 01/12/18 01:05 Ur Amphetamines Screen Presumptive negative 01/12/18 01:05 U Benzodiazepines Scrn Presumptive negative 01/12/18 01:05 Urine Cocaine Screen Presumptive negative 01/12/18 01:05 U Marijuana (THC) Screen Presumptive negative 01/12/18 01:05 Drugs of Abuse Note Disclamer 01/12/18 01:05 Blood Type O POSITIVE 01/13/18 04:59 Antibody Screen Negative 01/13/18 04:59
--- NOTE | 2018-01-20 17:14 | Consultation ---
History of Present Illness - Reason for Consult Consult date: 01/20/18 leukopenia Requesting physician: OZ BELTRAN - History of Present Illness Thank you for this consult, patient seen, resting in bed, labs/records reviewed. i had d/w DR Beltran. Her leukopenia, is probably due to her HIV/aids , and the ABX therapy. She has some monocytosis, but no bands. I do not think this is HIV lymphoma/leukemia, will chek flow if plausible, and may proceed with growth factor.She will need f/up visit if d/delores. Past History Past Medical History: COPD, HIV/AIDS, liver disease Past Surgical History: No surgical history Social history: Lives alone Family history: diabetes, hypertension Medications and Allergies Allergies Allergy/AdvReac Type Severity Reaction Status Date / Time No Known Allergies Allergy Unverified 01/12/18 23:56 Home Medications Medication Instructions Recorded Confirmed Last Taken Type Lisinopril/Hydrochlorothiazide 1 tab PO QDAY 01/13/18 01/13/18 Unknown History [Zestoretic 20-12.5 mg] Quetiapine Fumarate [SEROquel] 100 mg PO QHS 01/13/18 01/13/18 Unknown History Sertraline HCl [Zoloft] 100 mg PO QAM 01/13/18 01/13/18 Unknown History Venlafaxine HCl 75 mg PO QAM 01/13/18 01/13/18 Unknown History hydrOXYZINE PAMOATE [Hydroxyzine 25 mg PO TID 01/13/18 01/13/18 Unknown History Pamoate] Active Meds: Active Medications Acetaminophen (Tylenol) 650 mg PO Q4H PRN PRN Reason: Pain MILD(1-3)/Fever >100.5/[place] Last Admin: 01/17/18 17:28 Dose: 650 mg Albuterol (Proventil) 2.5 mg IH Q4HRT PRN PRN Reason: Shortness Of Breath Albuterol/Ipratropium (Duoneb *Not For Prn Use*) 1 ampul IH TIDRT [facility] Last Admin: 01/20/18 14:36 Dose: 1 ampul Clotrimazole (Mycelex) 1 applic VG QHS [facility] Stop: 01/24/18 22:01 Last Admin: 01/19/18 22:29 Dose: 1 applic Hydrochlorothiazide (Hctz) 12.5 mg PO QDAY [facility] Last Admin: 01/20/18 10:21 Dose: Not Given Cefepime HCl (Maxipime/Ns 2 Gm/100 Ml) 2 gm in 100 mls @ 200 mls/hr IV Q12HR [facility]; Protocol Last Admin: 01/20/18 10:14 Dose: 200 mls/hr Lisinopril (Zestril) 20 mg PO QDAY [facility] Last Admin: 01/20/18 10:21 Dose: Not Given Ondansetron HCl (Zofran) 4 mg IV Q8H PRN PRN Reason: Nausea And Vomiting Quetiapine Fumarate (Seroquel) 100 mg PO QHS [facility] Last Admin: 01/19/18 22:28 Dose: 100 mg Sertraline [facility] (Zoloft) [facility] [place] Admin: 01/20/18 10:13 Dose: 100 mg Sodium Chloride (Sodium Chloride Flush Syringe 10 Ml) 10 ml IV BID [facility] Last Admin: 01/20/18 10:15 Dose: 10 ml Sodium Chloride (Sodium Chloride Flush Syringe 10 Ml) 10 ml IV PRN PRN PRN Reason: LINE FLUSH Venlafaxine HCl (Effexor) 75 [facility] [place] Admin: 01/20/18 10:14 Dose: 75 mg Exam - Constitutional Vitals: Temp Pulse Resp BP Pulse Ox 98.0 F 83 20 107/65 91 01/20/18 16:47 01/20/18 16:48 01/20/18 16:47 01/20/18 16:47 01/20/18 16:48 General appearance: Present: mild distress, well-nourished - EENT Eyes: Present: PERRL ENT: hearing intact, clear oral mucosa - Neck Neck: Present: supple, normal ROM - Respiratory Respiratory effort: normal Respiratory: bilateral: CTA - Cardiovascular Heart Sounds: Present: S1 & S2. Absent: rub, click - Extremities Extremities: pulses symmetrical, No edema Peripheral Pulses: within normal limits - Abdominal General gastrointestinal: Present: soft, non-tender, non-distended, normal bowel sounds Female genitourinary: Present: deferred - Rectal Rectal Exam: deferred - Integumentary Integumentary: Present: clear, warm, dry - Musculoskeletal Musculoskeletal: gait normal, strength equal bilaterally - Psychiatric Psychiatric: appropriate mood/affect, intact judgment & insight - Neurologic Neurologic: CNII-XII intact, moves all extremities Results - Labs CBC & Chem 7: 01/18/18 04:46 01/18/18 04:46 Assessment and Plan - Patient Problems (1) Leucopenia Current Visit: Yes Status: Acute Plan to address problem: May benefit from Growth factors. (2) Thrombocytopenia Current Visit: Yes Status: Acute Plan to address problem: See notes, will check Hepatitis panel. (3) HIV infection Current Visit: Yes Status: Chronic Plan to address problem: Make sure she is seeing an ID doc. I did not see any HIV meds on her list, which can also cause Cytopenias.
[2018-01-20 18:23] LABS: Hematocrit 34.4 % (30.3-42.9); Hemoglobin 11.4 gm/dl (10.1-14.3); Mean Corpuscular HGB Conc 33 % (30-34); Mean Corpuscular Hemoglobin 31 pg (28-32); Mean Corpuscular Volume 93 fl (79-97); Red Blood Count 3.69 M/mm3 (3.65-5.03); Red Cell Distribution Width 18.3 % (13.2-15.2)
[2018-01-20 18:27] LABS: Platelet Count 90 K/mm3 (140-440)
[2018-01-20 19:13] LABS: Basophils % (Manual) 0 % (0.0-1.8); Eosinophils % (Manual) 0 % (0.0-4.3); Platelet Estimate Consistent w Auto; Total Cells Counted 100
[2018-01-20] MEDS: MYCELEX VG SCH (22:29)
--- NOTE | 2018-01-20 23:54 | Progress Note ---
Assessment and Plan This is 52 year old white female with history of HIV Positive, COPD, hypertension and depression admitted to the hospital through emergency room with hypotension and hypoxia. Patient placed on 2 litres O2 and was given I/V fluids.Patients O2 saturation and blood pressure went up.On admission, patient complained dizziness.No dizziness at this time. Patient has some non productive cough especially during night time.No complaint of shortness of breath, fever or chills at this time. Patient has history of smoking 4 cigarets a day for 40 years. Counselled her to stop smoking.Use to drink alcohol and used drugs. She said she is not doing it now.Denies allergies to the medications. 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 01/14/18 Patient alert, awake. Resting on 3 litres O2.O2 saturation 95%. No complaint of chest pain,shortness of breath or cough. 01/20/18 Patient sleeping at this time. O2 saturation 90% on 3.5 litres o2.No acute respiratory distress. - Patient Problems (1) COPD (chronic obstructive pulmonary disease) Current Visit: Yes Status: Chronic Qualifiers: COPD type: emphysema Emphysema type: panlobular Qualified Code(s): J43.1 - Panlobular emphysema Plan to address problem: O2 3.5 litres via nasal canula. Albuterol/atrovent aerosol treatments q 6 hours. (2) HIV infection Current Visit: Yes Status: Chronic Plan to address problem: Recommend to consult infectious diseases. (3) Hypoxia Current Visit: Yes Status: Chronic Plan to address problem: Supplemental O2. 3.5 litres via nasal canula. (4) Sepsis Current Visit: Yes Status: Suspected Plan to address problem: Patient is on cefepime. Subjective Date of service: 01/20/18 Principal diagnosis: Hypotension, lactic acidosis Interval history: Patient sleeping at this time. O2 saturation 90% on 3.5 litres o2.No acute respiratory distress. Objective Vital Signs - 12hr 01/20/18 01/20/18 01/20/18 14:00 14:37 14:41 Temperature Pulse Rate Pulse Rate [ 86 85 Anterior Bilateral Throughout] Pulse Rate [ Throughout] Respiratory Rate Respiratory 20 20 Rate [Anterior Bilateral Throughout] Respiratory Rate [ Throughout] Blood Pressure O2 Sat by Pulse 94 Oximetry 01/20/18 01/20/18 01/20/18 16:47 16:48 20:30 Temperature 98.0 F Pulse Rate 80 83 Pulse Rate [ 87 Anterior Bilateral Throughout] Pulse Rate [ Throughout] Respiratory 20 Rate Respiratory 20 Rate [Anterior Bilateral Throughout] Respiratory Rate [ Throughout] Blood Pressure 107/65 O2 Sat by Pulse 93 91 90 Oximetry 01/20/18 20:45 Temperature Pulse Rate Pulse Rate [ Anterior Bilateral Throughout] Pulse Rate [ 87 Throughout] Respiratory Rate Respiratory Rate [Anterior Bilateral Throughout] Respiratory 20 Rate [ Throughout] Blood Pressure O2 Sat by Pulse Oximetry Constitutional: no acute distress, asleep Eyes: non-icteric ENT: oropharynx moist Neck: supple, no lymphadenopathy, no JVD Effort: normal Ascultation: Bilateral: diminished breath sounds, other (Prolonged expiratory diseases.) Cardiovascular: regular rate and rhythm, other (S1,S2, no murmurs, gallops or rubs) Gastrointestinal: normoactive bowel sounds, soft, non-tender Integumentary: normal Extremities: no cyanosis, no edema Neurologic: non-focal exam, pupils equal and round, CN II-XII normal Psychiatric: other (Patient sleeping.) CBC and BMP: 01/20/18 18:10 01/18/18 04:46 ABG, PT/INR, D-dimer: ABG POC ABG pH 7.400 (7.35-7.45) 01/13/18 01:32 POC ABG pCO2 26.0 (35-45) L 01/13/18 01:32 POC ABG pO2 65 (80-105) L 01/13/18 01:32 POC ABG HCO3 16.1 01/13/18 01:32 POC ABG Total CO2 17 01/13/18 01:32 POC ABG O2 Sat 93 01/13/18 01:32 PT/INR, D-dimer D-Dimer < 135.00 ng/mlDDU (0-234) 01/13/18 00:20 Abnormal lab findings: Abnormal Labs 01/13/18 01/13/18 01/13/18 00:06 00:06 00:20 WBC 2.5 L RBC RDW 18.7 H Plt Count 92 L [place] % (Auto) 10.5 H Lymph # 0.6 L Seg Neuts % (Manual) Monocytes % (Manual) Seg Neutrophils # 1.6 L Seg Neutrophils # Man Lymphocytes # (Manual) POC ABG pCO2 POC ABG pO2 Potassium 3.3 L Chloride Carbon Dioxide 18 L Creatinine Glucose 150 H Lactic Acid 3.40 H* Calcium AST Lactate Dehydrogenase Albumin Hepatitis C Antibody 01/13/18 01/14/18 01/14/18 01:32 07:44 07:44 WBC 1.8 L* RBC 3.55 L RDW 18.7 H Plt Count 80 L [place] % (Auto) Lymph # Seg Neuts % (Manual) Monocytes % (Manual) 8.0 H Seg Neutrophils # Seg Neutrophils # Man 1.2 L Lymphocytes # (Manual) 0.5 L POC ABG pCO2 26.0 L POC ABG pO2 65 L Potassium Chloride 111.7 H Carbon Dioxide 17 L Creatinine Glucose Lactic Acid Calcium 8.3 L AST Lactate Dehydrogenase Albumin Hepatitis C Antibody 01/15/18 01/15/18 01/18/18 05:39 05:39 04:46 WBC 1.8 L* 1.9 L* RBC 3.53 L RDW 18.6 H 18.7 H Plt Count 85 L 89 L [place] % (Auto) Lymph # Seg Neuts % (Manual) Monocytes % (Manual) 12.0 H 20.0 H Seg Neutrophils # Seg Neutrophils # Man 1.2 L 1.0 L Lymphocytes # (Manual) 0.3 L 0.5 L POC ABG pCO2 POC ABG pO2 Potassium Chloride 109.5 H Carbon Dioxide 19 L Creatinine Glucose Lactic Acid Calcium AST 63 H Lactate Dehydrogenase Albumin 3.2 L Hepatitis C Antibody 01/18/18 01/20/18 01/20/18 04:46 18:10 18:10 WBC 2.3 L RBC RDW 18.3 H Plt Count 90 L [place] % (Auto) Lymph # Seg Neuts % (Manual) 73.0 H Monocytes % (Manual) Seg Neutrophils # Seg Neutrophils # Man 1.7 L Lymphocytes # (Manual) 0.5 L POC ABG pCO2 POC ABG pO2 Potassium Chloride 108.1 H Carbon Dioxide 21 L Creatinine 0.6 L Glucose Lactic Acid Calcium AST 70 H Lactate Dehydrogenase 201 H Albumin 3.2 L Hepatitis C Antibody 01/20/18 18:10 WBC RBC RDW Plt Count [place] % (Auto) Lymph # Seg Neuts % (Manual) Monocytes % (Manual) Seg Neutrophils # Seg Neutrophils # Man Lymphocytes # (Manual) POC ABG pCO2 POC ABG pO2 Potassium Chloride Carbon Dioxide Creatinine Glucose Lactic Acid Calcium AST Lactate Dehydrogenase Albumin Hepatitis C Antibody Reactive A Allied health notes reviewed: nursing
--- NOTE | 2018-01-21 07:43 | Discharge Summary ---
Providers - Providers Date of Admission: 01/13/18 04:02 Date of discharge: 01/21/18 Attending physician: OZ SPARKS 01/13/18 04:02 Consult to Physician [CONS] Routine Comment: Left a voicemail for Dr. 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 She is oxygen dependent for her COPD and apparently was not on oxygen at the psychiatric facility. She was given 2 L of normal saline bolus and she was still found to be borderline hypotensive with BP systolic in the mid 80s. Her lactic acid level was also elevated. She was admitted for possible sepsis and hypotension. The patient was treated with IV antibiotics and stabilized. Her blood pressure improved with IV fluid hydration and no pressors. Blood cultures were found to be negative. Other complications during hospital stay included unspecified mood disorder with psychotic features. Patient reported that she was hearing voices. 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 Initially a 1013 was initiated but after treatment with her medications of Zoloft and Seroquel and Effexor her 1013 was rescinded. Patient was also noted to have leukopenia and seen by hematology and felt to be secondary to her HIV/AIDS. Patient was given Granix with improvement of her WBC. The patient is felt to have received maximal hospital benefit and will be discharged home. The Patient is to follow-up with hematology as an outpatient. Dedicated discharge time 32 minutes. Disposition: -01 TO HOME OR SELFCARE Time spent for discharge: 32 - Discharge Diagnoses (1) Leucopenia Status: Acute (2) COPD (chronic obstructive pulmonary disease) Status: Chronic Qualifiers: COPD type: emphysema Emphysema type: panlobular Qualified Code(s): J43.1 - Panlobular emphysema (3) Depression Status: Chronic Qualifiers: Depression Type: major depressive disorder Major depression recurrence: recurrent Psychotic features: with psychotic features (4) HIV infection Status: Chronic Core Measure Documentation - Palliative Care Palliative Care/ Comfort Measures: Not Applicable - Core Measures Any of the following diagnoses?: none Exam - Constitutional Vitals: Temp Pulse Resp BP Pulse Ox 98.2 F 83 16 101/49 87 01/21/18 05:32 01/21/18 05:32 01/21/18 05:32 01/21/18 05:32 01/21/18 05:32 General appearance: Present: no acute distress, well-nourished - EENT Eyes: Present: PERRL ENT: hearing intact, clear oral mucosa - Neck Neck: Present: supple, normal ROM - Respiratory Respiratory effort: normal Respiratory: bilateral: CTA - Cardiovascular Heart Sounds: Present: S1 & S2. Absent: rub, click - Extremities Extremities: pulses symmetrical, No edema Peripheral Pulses: within normal limits - Abdominal General gastrointestinal: Present: soft, non-tender, non-distended, normal bowel sounds Female genitourinary: Present: normal - Integumentary Integumentary: Present: clear, warm, dry - Musculoskeletal Musculoskeletal: gait normal, strength equal bilaterally - Psychiatric Psychiatric: appropriate mood/affect, intact judgment & insight - Neurologic Neurologic: CNII-XII intact, moves all extremities Plan Activity: no restrictions Weight Bearing Status: Full Weight Bearing Diet: regular Follow up with: [facility] [Other] - 3-5 Days ELIZ BRYSON DO [Staff Physician] - 7 Days SANDRA BUSH MD [Staff Physician] - 7 Days Prescriptions: hydrOXYZINE PAMOATE [Hydroxyzine Pamoate] 25 mg PO TID #90 capsule Lisinopril/Hydrochlorothiazide [Zestoretic 20-12.5 mg] 1 tab PO QDAY #30 tablet Quetiapine Fumarate [SEROquel] 100 mg PO QHS #30 tablet Sertraline HCl [Zoloft] 100 mg PO QAM #30 tablet Venlafaxine HCl 75 mg PO QAM #30 tablet
[2018-01-21] MEDS: DUONEB *Not for PRN Use IH SCH ×2 (07:50→16:52)
[2018-01-21] MEDS: HCTZ PO SCH (10:43)
[2018-01-21] MEDS: MAXIPIME/NS 2 GM/100 ML 2 GM/100 ML BAG IV SCH (10:43)
[2018-01-21] MEDS: ZESTRIL PO SCH (10:43)
[2018-01-21] MEDS: EFFEXOR PO SCH (10:43)
[2018-01-21] MEDS: ZOLOFT PO SCH (10:43)
[2018-01-21] MEDS: SODIUM CHLORIDE FLUSH SYRINGE 10 ML IV SCH (10:51)
[2018-01-21 13:16] VITALS: BP 115/58
--- NOTE | 2018-01-21 13:25 | Progress Note ---
Assessment and Plan This is 52 year old white female with history of HIV Positive, COPD, hypertension and depression admitted to the hospital through emergency room with hypotension and hypoxia. Patient placed on 2 litres O2 and was given I/V fluids.Patients O2 saturation and blood pressure went up.On admission, patient complained dizziness.No dizziness at this time. Patient has some non productive cough especially during night time.No complaint of shortness of breath, fever or chills at this time. Patient has history of smoking 4 cigarets a day for 40 years. Counselled her to stop smoking.Use to drink alcohol and used drugs. She said she is not doing it now.Denies allergies to the medications. 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 01/14/18 Patient alert, awake. Resting on 3 litres O2.O2 saturation 95%. No complaint of chest pain,shortness of breath or cough. 01/20/18 Patient sleeping at this time. O2 saturation 90% on 3.5 litres o2.No acute respiratory distress. - Patient Problems (1) COPD (chronic obstructive pulmonary disease) Current Visit: Yes Status: Chronic Qualifiers: COPD type: emphysema Emphysema type: panlobular Qualified Code(s): J43.1 - Panlobular emphysema Plan to address problem: O2 3.5 litres via nasal canula. Albuterol/atrovent aerosol treatments q 6 hours. (2) HIV infection Current Visit: Yes Status: Chronic Plan to address problem: Recommend to consult infectious diseases. (3) Hypoxia Current Visit: Yes Status: Chronic Plan to address problem: Supplemental O2. 3.5 litres via nasal canula. (4) Sepsis Current Visit: Yes Status: Suspected Plan to address problem: Patient is on cefepime. Subjective Date of service: 01/21/18 Principal diagnosis: Hypotension, lactic acidosis Interval history: Patient sleeping at this time. O2 saturation 90% on 3.5 litres o2.No acute respiratory distress. Objective Vital Signs - 12hr 01/21/18 01/21/18 01/21/18 05:32 07:50 08:05 Temperature 98.2 F Pulse Rate 83 Pulse Rate [ 83 Anterior Bilateral Throughout] Pulse Rate [ 83 82 Throughout] Respiratory 16 Rate Respiratory 18 Rate [Anterior Bilateral Throughout] Respiratory 18 18 Rate [ Throughout] Blood Pressure 101/49 O2 Sat by Pulse 87 Oximetry 01/21/18 01/21/18 08:06 11:25 Temperature 98.3 F Pulse Rate 83 Pulse Rate [ Anterior Bilateral Throughout] Pulse Rate [ Throughout] Respiratory 18 Rate Respiratory Rate [Anterior Bilateral Throughout] Respiratory Rate [ Throughout] Blood Pressure 115/58 O2 Sat by Pulse 93 89 Oximetry Constitutional: no acute distress, asleep Eyes: non-icteric ENT: oropharynx moist Neck: supple, no lymphadenopathy, no JVD Effort: normal Ascultation: Bilateral: diminished breath sounds, other (Prolonged expiratory diseases.) Cardiovascular: regular rate and rhythm, other (S1,S2, no murmurs, gallops or rubs) Gastrointestinal: normoactive bowel sounds, soft, non-tender Integumentary: normal Extremities: no cyanosis, no edema Neurologic: non-focal exam, pupils equal and round, CN II-XII normal Psychiatric: other (Patient sleeping.) CBC and BMP: 01/20/18 18:10 01/18/18 04:46 ABG, PT/INR, D-dimer: ABG POC ABG pH 7.400 (7.35-7.45) 01/13/18 01:32 POC ABG pCO2 26.0 (35-45) L 01/13/18 01:32 POC ABG pO2 65 (80-105) L 01/13/18 01:32 POC ABG HCO3 16.1 01/13/18 01:32 POC ABG Total CO2 17 01/13/18 01:32 POC ABG O2 Sat 93 01/13/18 01:32 PT/INR, D-dimer D-Dimer < 135.00 ng/mlDDU (0-234) 01/13/18 00:20 Abnormal lab findings: Abnormal Labs 01/13/18 01/13/18 01/13/18 00:06 00:06 00:20 WBC 2.5 L RBC RDW 18.7 H Plt Count 92 L Ellis % (Auto) 10.5 H Lymph # 0.6 L Seg Neuts % (Manual) Monocytes % (Manual) Seg Neutrophils # 1.6 L Seg Neutrophils # Man Lymphocytes # (Manual) POC ABG pCO2 POC ABG pO2 Potassium 3.3 L Chloride Carbon Dioxide 18 L Creatinine Glucose 150 H Lactic Acid 3.40 H* Calcium AST Lactate Dehydrogenase Albumin Hepatitis C Antibody 01/13/18 01/14/18 01/14/18 01:32 07:44 07:44 WBC 1.8 L* RBC 3.55 L RDW 18.7 H Plt Count 80 L Ellis % (Auto) Lymph # Seg Neuts % (Manual) Monocytes % (Manual) 8.0 H Seg Neutrophils # Seg Neutrophils # Man 1.2 L Lymphocytes # (Manual) 0.5 L POC ABG pCO2 26.0 L POC ABG pO2 65 L Potassium Chloride 111.7 H Carbon Dioxide 17 L Creatinine Glucose Lactic Acid Calcium 8.3 L AST Lactate Dehydrogenase Albumin Hepatitis C Antibody 01/15/18 01/15/18 01/18/18 05:39 05:39 04:46 WBC 1.8 L* 1.9 L* RBC 3.53 L RDW 18.6 H 18.7 H Plt Count 85 L 89 L Ellis % (Auto) Lymph # Seg Neuts % (Manual) Monocytes % (Manual) 12.0 H 20.0 H Seg Neutrophils # Seg Neutrophils # Man 1.2 L 1.0 L Lymphocytes # (Manual) 0.3 L 0.5 L POC ABG pCO2 POC ABG pO2 Potassium Chloride 109.5 H Carbon Dioxide 19 L Creatinine Glucose Lactic Acid Calcium AST 63 H Lactate Dehydrogenase Albumin 3.2 L Hepatitis C Antibody 01/18/18 01/20/18 01/20/18 04:46 18:10 18:10 WBC 2.3 L RBC RDW 18.3 H Plt Count 90 L Ellis % (Auto) Lymph # Seg Neuts % (Manual) 73.0 H Monocytes % (Manual) Seg Neutrophils # Seg Neutrophils # Man 1.7 L Lymphocytes # (Manual) 0.5 L POC ABG pCO2 POC ABG pO2 Potassium Chloride 108.1 H Carbon Dioxide 21 L Creatinine 0.6 L Glucose Lactic Acid Calcium AST 70 H Lactate Dehydrogenase 201 H Albumin 3.2 L Hepatitis C Antibody 01/20/18 18:10 WBC RBC RDW Plt Count Ellis % (Auto) Lymph # Seg Neuts % (Manual) Monocytes % (Manual) Seg Neutrophils # Seg Neutrophils # Man Lymphocytes # (Manual) POC ABG pCO2 POC ABG pO2 Potassium Chloride Carbon Dioxide Creatinine Glucose Lactic Acid Calcium AST Lactate Dehydrogenase Albumin Hepatitis C Antibody Reactive A Allied health notes reviewed: nursing
== END 2018-01-21 13:00 | disposition home or self-care (01) | DRG 974 ==
LOC: ED 23:20 → 4A 01-13 04:02 → 3A 01-13 12:45
PROVIDERS: ADMIT Internal Medicine; ATTEND Hospitalist
DX: B20 Human immunodeficiency virus [HIV] disease (principal); A41.9 Sepsis, unspecified organism; R65.20 Severe sepsis without septic shock; F33.3 Major depressive disorder, recurrent, severe with psychotic symptoms; R45.851 Suicidal ideations; E44.0 Moderate protein-calorie malnutrition; E87.2 Acidosis; E87.6 Hypokalemia; D69.6 Thrombocytopenia, unspecified; F17.210 Nicotine dependence, cigarettes, uncomplicated; J44.9 Chronic obstructive pulmonary disease, unspecified; I10 Essential (primary) hypertension; Z83.3 Family history of diabetes mellitus; Z82.49 Family history of ischemic heart disease and other diseases of the circulatory system; Z68.26 Body mass index [BMI] 26.0-26.9, adult; Z90.49 Acquired absence of other specified parts of digestive tract; Z90.710 Acquired absence of both cervix and uterus; Z71.6 Tobacco abuse counseling
CPT/HCPCS: 36415; 71045; 80048; 80053; 80307; 81001; 82140; 82232; 82550; 82553; 82803; 83615; 83735; 84484; 85007; 85025; 85379; 86803; 86850; 86900; 86901; 87040; 93005; 93010; 94640; 94760; 96360; 96361; J0692; J3480; J7030; J7040

== ENCOUNTER 2018-08-05 21:56 | Inpatient (IN) | payer MEDICARE ==
[2018-08-05] MEDS ORDERED: NACL 0.9% 1000 ML 1,000 ML IV ONE (22:46)
--- NOTE | 2018-08-05 22:49 | Emergency Department Report ---
ED GI Bleed HPI - General Chief complaint: Abdominal Pain Stated complaint: RECTAL BLEEDING Time Seen by Provider: 08/05/18 22:19 Source: patient, EMS Mode of arrival: Stretcher Limitations: No Limitations - History of Present Illness Initial comments: 53-year-old female presents to ED with complaint of GI bleeding. Patient states she noticed blood on toilet paper and in the toilet after having a bowel movement this evening. Patient denies having any abdominal pain at this time. Denies nausea or vomiting or diarrhea. Patient denies being on any blood thinners at this time. Denies alcohol abuse. Denies history of previous GI bleed. MD complaint: blood on toilet paper, gross hematochezia -: This evening Severity scale (0 -10): 7 Quality: painless Consistency: other (one episode reported) Worsens with: none Associated Symptoms: denies: abdominal pain, nausea, vomiting, fever/chills - Related Data Previous Rx's Medication Instructions Recorded Last Taken Type Lisinopril/Hydrochlorothiazide 1 tab PO QDAY #30 tablet 01/21/18 Unknown Rx [Zestoretic 20-12.5 mg] Quetiapine Fumarate [SEROquel] 100 mg PO QHS #30 tablet 01/21/18 Unknown Rx Sertraline HCl [Zoloft] 100 mg PO QAM #30 tablet 01/21/18 Unknown Rx Venlafaxine HCl 75 mg PO QAM #30 tablet 01/21/18 Unknown Rx hydrOXYzine pamoate [Hydroxyzine 25 mg PO TID #90 capsule 01/21/18 Unknown Rx Pamoate] Allergies Allergy/AdvReac Type Severity Reaction Status Date / Time No Known Allergies Allergy Unverified 01/12/18 23:56 ED Review of Systems ROS: Stated complaint: RECTAL BLEEDING Other details as noted in HPI Comment: All other systems reviewed and negative Constitutional: denies: chills, fever Gastrointestinal: hematochezia. denies: abdominal pain, nausea, vomiting ED Past Medical Hx - Past Medical History Hx Hypertension: Yes Hx Congestive Heart Failure: No Hx Diabetes: No Hx Asthma: No Hx COPD: Yes (3L O2 at home) Hx HIV: Yes Additional medical history: Hep c - Surgical History Hx Cholecystectomy: Yes Additional Surgical History: Hysterectomy - Social History Smoking Status: Unknown if ever smoked - Medications Home Medications: Home Medications Medication Instructions Recorded Confirmed Last Taken Type Lisinopril/Hydrochlorothiazide 1 tab PO QDAY #30 tablet 01/21/18 Unknown Rx [Zestoretic 20-12.5 mg] Quetiapine Fumarate [SEROquel] 100 mg PO QHS #30 tablet 01/21/18 Unknown Rx Sertraline HCl [Zoloft] 100 mg PO QAM #30 tablet 01/21/18 Unknown Rx Venlafaxine HCl 75 mg PO QAM #30 tablet 01/21/18 Unknown Rx hydrOXYzine pamoate [Hydroxyzine 25 mg PO TID #90 capsule 01/21/18 Unknown Rx Pamoate] ED Physical Exam - General Limitations: No Limitations General appearance: alert, in no apparent distress - Head Head exam: Present: atraumatic, normocephalic - Eye Eye exam: Present: normal appearance - ENT ENT exam: Present: mucous membranes moist - Neck Neck exam: Present: normal inspection - Respiratory Respiratory exam: Present: normal lung sounds bilaterally. Absent: respiratory distress - Cardiovascular Cardiovascular Exam: Present: regular rate, normal rhythm - GI/Abdominal GI/Abdominal exam: Present: soft. Absent: distended, tenderness - Rectal Rectal exam: Present: heme (+) stool, bloody stool - Extremities Exam Extremities exam: Present: normal inspection - Neurological Exam Neurological exam: Present: alert, oriented X3 - Psychiatric Psychiatric exam: Present: normal affect, normal mood - Skin Skin exam: Present: warm, dry, intact, normal color ED Course Vital Signs 08/05/18 08/05/18 08/05/18 20:42 22:11 22:17 Temperature 98.6 F Pulse Rate 80 92 H 96 H Respiratory 25 H 16 21 Rate Blood Pressure 132/80 138/74 O2 Sat by Pulse 97 83 L 86 Oximetry 08/05/18 08/05/18 08/05/18 22:30 23:00 23:16 Temperature Pulse Rate 89 84 87 Respiratory 20 23 22 Rate Blood Pressure 138/74 139/90 139/90 O2 Sat by Pulse 86 95 96 Oximetry 08/05/18 08/05/18 23:30 23:43 Temperature Pulse Rate 89 Respiratory 23 22 Rate Blood Pressure 139/90 O2 Sat by Pulse 95 97 Oximetry - Consultations Consultation #1: 08/06/18 00:26 Spoke w/ Dr Fisher, GI. Is aware of pt, will see in the morning. ED Medical Decision Making - Lab Data Result diagrams: 08/05/18 22:36 08/05/18 22:36 - Medical Decision Making 53-year-old female with history of HIV, COPD with O2 dependency, presents to ED with one episode of GI bleeding. Vital signs have been stable during ED stay. Blood pressure normal, patient not tachycardic. Hemoglobin is 10. She has history of leukopenia, thought to be due to her HIV. Also has history of thrombocytopenia. Platelet count is currently 89, which is stable compared to previous admission in December of 2017. Remainder of labs are unremarkable. Rectal exam was heme positive with bright red blood. Possibly lower GI bleed. Patient denies abdominal pain. Spoke with Dr. Fisher, segregator, who is aware of the patient. Will admit to hospitalist, Dr. Campoverde, for further workup. - Differential Diagnosis ulcer, anemia, diverticulosis, AV malformation Critical Care Time: Yes Critical care time in (mins) excluding proc time.: 35 Critical care attestation.: If time is entered above; I have spent that time in minutes in the direct care of this critically ill patient, excluding procedure time. Critical Care Time: 35 minutes ED Disposition Clinical Impression: Thrombocytopenia, GI bleed Disposition: OP ADMIT IP TO THIS HOSP Is pt being admited?: Yes Condition: Stable Instructions: Abdominal Pain (ED) Referrals: NAIF [place] MD [Staff Physician] - 3-5 Days Time of Disposition: 00:01
[2018-08-05 22:51] LABS: Hemoglobin 10.1 gm/dl (10.1-14.3); Mean Corpuscular HGB Conc 34 % (30-34); Mean Corpuscular Volume 91 fl (79-97); Red Blood Count 3.31 M/mm3 (3.65-5.03); Red Cell Distribution Width 19.2 % (13.2-15.2)
[2018-08-05 22:58] LABS: Platelet Count 89 K/mm3 (140-440)
[2018-08-05 23:01] LABS: INR 1.14 (0.87-1.13)
[2018-08-05 23:02] LABS: Partial Thromboplastin Time 28.5 Sec. (24.2-36.6)
[2018-08-05 23:10] LABS: Alanine Aminotransferase 34 units/L (7-56); Albumin 3.1 g/dL (3.9-5); BUN/Creatinine Ratio 8; Blood Urea Nitrogen 8 mg/dL (7-17); Hemolysis Index 1
[2018-08-05 23:41] LABS: Anisocytosis 1+; Basophils % (Manual) 0 % (0.0-1.8); Poikilocytosis 2+; Tear Drop Cells 2+; Total Cells Counted 100
[2018-08-05 23:42] LABS: Ovalocytes 2+; Platelet Estimate Appears Decreased
[2018-08-06] MEDS ORDERED: SODIUM CHLORIDE FLUSH SYRINGE 10 ML IV PRN (00:39)
[2018-08-06] MEDS ORDERED: MORPHINE IV PRN (00:39)
[2018-08-06] MEDS ORDERED: ZOFRAN IV PRN (00:39)
[2018-08-06] MEDS ORDERED: TYLENOL PO PRN (00:39)
[2018-08-06] MEDS ORDERED: NACL 0.45% 1000 ML 1,000 ML IV SCH (01:00)
--- NOTE | 2018-08-06 01:01 | History and Physical Report ---
History of Present Illness Date of examination: 08/06/18 History of present illness: 53-year-old woman with history of HIV, unknown CD4 count, hypertension, COPD, depression comes emergency room with complaints of low back pain 5 days. Describes it as sharp, constant, intensity 6/10, no radiation, cannot identify exacerbating or relieving factor. Last night she had 2 episodes of bright red blood per rectum Review of systems Constitutional: no weight loss, chills, fever Ears, eyes, nose, mouth and throat: no nasal congestion, no nasal discharge, no sinus pressure, no vision change, no red eye. Neck: No neck pain or rigidity. Cardiovascular: no palpitations, chest pain Respiratory: no cough, shortness of breath Gastrointestinal: no abdominal pain Genitourinary : no frequency , no hematuria Musculoskeletal: no joint swelling or muscle ache Integumentary: no rash, no pruritis Neurological: no parathesias, no focal weakness Endocrine: no cold or heat intolerance, no polyuria or polydipsia Hematologic/Lymphatic: no easy bruising, no easy bleeding, no gland swelling Allergic/Immunologic: no urticaria, no angioedema. PAST MEDICAL HISTORY: HIV, unknown CD4 count, hypertension, COPD, depression PAST SURGICAL HISTORY: Hysterectomy, cholecystectomy SOCIAL HISTORY: Denies alcohol, drugs, smoke 4 cigarettes a day FAMILY HISTORY: Hypertension Medications and Allergies Allergies Allergy/AdvReac Type Severity Reaction Status Date / Time No Known Allergies Allergy Unverified 01/12/18 23:56 Home Medications Medication Instructions Recorded Confirmed Last Taken Type Lisinopril/Hydrochlorothiazide 1 tab PO QDAY #30 tablet 01/21/18 Unknown Rx [Zestoretic 20-12.5 mg] Quetiapine Fumarate [SEROquel] 100 mg PO QHS #30 tablet 01/21/18 Unknown Rx Sertraline HCl [Zoloft] 100 mg PO QAM #30 tablet 01/21/18 Unknown Rx Venlafaxine HCl 75 mg PO QAM #30 tablet 01/21/18 Unknown Rx hydrOXYzine pamoate [Hydroxyzine 25 mg PO TID #90 capsule 01/21/18 Unknown Rx Pamoate] Active Meds: Active Medications Acetaminophen (Tylenol) 650 mg PO Q4H PRN PRN Reason: Pain MILD(1-3)/Fever >100.5/[place] Sodium Chloride (Nacl 0.45% 1000 Ml) 1,000 mls @ 100 mls/hr IV DIRECT ARLENE Morphine Sulfate (Morphine) 2 mg IV Q4H PRN PRN Reason: Pain, Moderate (4-6) Ondansetron HCl (Zofran) 4 mg IV Q8H PRN PRN Reason: Nausea And Vomiting Sodium Chloride (Sodium Chloride Flush Syringe 10 Ml) 10 ml IV BID ARLENE Sodium Chloride (Sodium Chloride Flush Syringe 10 Ml) 10 ml IV PRN PRN PRN Reason: LINE FLUSH Exam - Physical Exam Narrative exam: General Apperance: The patient lying in bed, breathing comfortable HEENT: Normocephalic, atraumatic. Pupils equally round and reactive to light, EOMI, no sclericterus or JVD or thyromegaly or nodule. , no carotid bruit, mucous membranes moist, no exudate or erythema Heart: S1-S2, regular is rhythm Lungs: Clear to auscultation bilaterally, breathing comfortable Abdomen: Positive bowel sounds, soft, nontender, nondistended, no organomegaly Extremities: No edema cyanosis clubbing, mild tenderness over the lower back Skin: no rash, nodule, warm and dry Neuro: cranial nerves 2-12 intact, speech is fluent, motor/sensory intact - Constitutional Vitals: Temp Pulse Resp BP Pulse Ox 98.6 F 89 20 157/96 98 08/05/18 22:11 08/06/18 00:46 08/06/18 00:46 08/06/18 00:46 08/06/18 00:46 Results - Labs CBC & Chem 7: 08/05/18 22:36 08/05/18 22:36 Labs: Abnormal lab results 08/05/18 08/05/18 08/05/18 Range/Units 22:36 22:36 22:36 WBC 2.9 L (4.5-11.0) K/mm3 RBC 3.31 L (3.65-5.03) M/mm3 Hct 30.0 L (30.3-42.9) % RDW 19.2 H (13.2-15.2) % Plt Count 89 L (140-440) K/mm3 Lymphocytes # (Manual) 0.7 L (1.2-5.4) K/mm3 PT 15.0 H (12.2-14.9) Sec. INR 1.14 H (0.87-1.13) Potassium 3.0 L (3.6-5.0) mmol/L Chloride 110.3 H (98-107) mmol/L Carbon Dioxide 18 L (22-30) mmol/L Glucose 129 H (65-100) mg/dL Calcium 8.0 L (8.4-10.2) mg/dL Total Protein 5.8 L (6.3-8.2) g/dL Albumin 3.1 L (3.9-5) g/dL Assessment and Plan Assessment Lower GIB Lower back pain HIV, unknown CD4 count hypertension COPD depression Plan Admit to medicine Made nothing by mouth, start IV fluid Check serial hemoglobin, consult GI IV morphine, replete potassium, DVT prophylaxis
[2018-08-06] MEDS ORDERED: K-DUR PO ONE ×2 (01:02→02:47)
[2018-08-06 01:17] LABS: Hematocrit 29.9 % (30.3-42.9); Hemoglobin 9.8 gm/dl (10.1-14.3)
--- NOTE | 2018-08-06 02:13 | Cat Scan Report ---
FINAL REPORT PROCEDURE: CT L-SPINE WO CONTRAST TECHNIQUE: Computerized axial tomography of the lumbar spine was performed from T12 to the sacrum wi thout contrast material. HISTORY: BACK PAIN COMPARISON: No prior studies are available for comparison. FINDINGS: There is no fracture or malalignment. The disc spaces are normal. There is normal lumbar lordosis. There is no disc herniation. There is mild left posterior paracentral disc bulging at L5-S1 with mild compression on the left S1 nerve root. Facet joints are within normal limits. There is bilateral spondylolysis at L5-S1 without evidence of spondylolisthesis. Soft tissues are unremarkable. IMPRESSION: There is no fracture or malalignment. There is mild left posterior paracentral disc bulging at L5-S1 with mild compression on the left S1 n erve root. There is bilateral spondylolysis at L5-S1 without evidence of spondylolisthesis.
[2018-08-06 05:54] LABS: Hematocrit 30.3 % (30.3-42.9); Hemoglobin 10.1 gm/dl (10.1-14.3)
[2018-08-06] MEDS ORDERED: SODIUM CHLORIDE FLUSH SYRINGE 10 ML IV SCH (10:00)
[2018-08-06 11:52] LABS: Hematocrit 30.8 % (30.3-42.9); Hemoglobin 10.2 gm/dl (10.1-14.3)
--- NOTE | 2018-08-06 14:16 | Event Note ---
Date: 08/06/18 Patient today complains of persistent back pain otherwise stable. Rectal bleeding appears to have resolved. He showed 56 years old HIV hypertension COPD back pain 5 days bright red blood per rectum which is resolved. Patient's hemoglobin and hematocrit remains 10 and 30. Serial hemoglobin and hematocrit stable. Will obtain x-ray for etiology of low back pain. It is chronic. Patient also had hypokalemia. Which is being corrected. Will obtain x-ray of the back.
--- NOTE | 2018-08-06 15:47 | XRay Report ---
FINAL REPORT PROCEDURE: XRAY LUMBAR LIMITED TECHNIQUE: Lumbar spine radiographs, including AP, lateral, and lumbosacral spot views. CPT 07655 HISTORY: LUMBAR PAIN COMPARISON: No prior studies are available for comparison. FINDINGS: The vertebral body heights and alignment are maintained. There are degenerative disc changes at L1-2, with disc space narrowing and endplate sclerosis. No scoliosis. Aortic calcification. IMPRESSION: No acute osseous abnormality is seen.
[2018-08-06 16:20] VITALS: BP 150/77
--- NOTE | 2018-08-06 18:17 | Gastroenterology Consultation ---
History of Present Illness - Reason for Consult Consult date: 08/06/18 Rectal Bleed Requesting physician: FELIZ FLETCHER - History of Present Illness The patient is a 53 yo female admitted with 2-3 episodes of blood per rectum at home. She says this has never happened before, and she has never had a colonoscopy. She had no significant abdominal pain, nausea, or vomiting. She denies taking blood thinners or NSAIDs, and says she is compliant with other medications. There is no family hx of colon cancer. She has had no fevers or chills, and did not feel that her bowels had changed in character. She has no used any antibiotics recently. Past History Past Medical History: COPD (O2-dependent), HIV/AIDS, hypertension, other (Bipolar) Past Surgical History: cholecystectomy, hysterectomy Social history: Lives alone, smoking ((former)). denies: alcohol abuse Family history: denies: cancer Medications and Allergies Allergies Allergy/AdvReac Type Severity Reaction Status Date / Time No Known Allergies Allergy Unverified 01/12/18 23:56 Home Medications Medication Instructions Recorded Confirmed Last Taken Type Lisinopril/Hydrochlorothiazide 1 tab PO QDAY #30 tablet 01/21/18 08/06/18 Unknown Rx [Zestoretic 20-12.5 mg] Quetiapine Fumarate [SEROquel] 100 mg PO QHS #30 tablet 01/21/18 08/06/18 Unknown Rx Sertraline HCl [Zoloft] 100 mg PO QAM #30 tablet 01/21/18 08/06/18 Unknown Rx Venlafaxine HCl 75 mg PO QAM #30 tablet 01/21/18 08/06/18 Unknown Rx hydrOXYzine pamoate [Hydroxyzine 25 mg PO TID #90 capsule 01/21/18 08/06/18 Unknown Rx Pamoate] Active Meds: Active Medications Acetaminophen (Tylenol) 650 mg PO Q4H PRN PRN Reason: Pain MILD(1-3)/Fever >100.5/[place] Sodium Chloride (Nacl 0.45% 1000 Ml) 1,000 mls @ 100 mls/hr IV DIRECT ARLENE Last Admin: 08/06/18 04:00 Dose: 100 mls/hr Documented by: Morphine Sulfate (Morphine) 2 mg IV Q4H PRN PRN Reason: Pain, Moderate (4-6) Ondansetron HCl (Zofran) 4 mg IV Q8H PRN PRN Reason: Nausea And Vomiting Sodium Chloride (Sodium Chloride Flush Syringe 10 Ml) 10 ml IV BID ARLENE Last Admin: 08/06/18 10:00 Dose: 10 ml Documented by: Sodium Chloride (Sodium Chloride Flush Syringe 10 Ml) 10 ml IV PRN PRN PRN Reason: LINE FLUSH I HAVE REVIEWED AND RECONCILED MEDICATIONS Review of Systems - Review of Systems All systems: negative (as noted in the HPI) Exam - Constitutional Vital Signs: Temp Pulse Resp BP Pulse Ox 98.8 F 94 H 20 150/77 90 08/06/18 16:20 08/06/18 16:19 08/06/18 16:19 08/06/18 16:19 08/06/18 16:19 General appearance: no acute distress - EENT Eyes: PERRL, EOM intact ENT: hearing intact, clear oral mucosa, no thrush, edentulous - Neck Neck: supple, normal ROM - Respiratory Respiratory effort: normal Respiratory: bilateral: diminished - Cardiovascular Rhythm: regular Heart Sounds: Present: S1 & S2 Extremities: no ischemia, No edema - Gastrointestinal General gastrointestinal: Present: soft, non-tender, non-distended - Integumentary Integumentary: Present: clear, warm, dry - Neurologic Neurological: alert and oriented x3 - Labs CBC & Chem 7: 08/06/18 10:36 08/05/18 22:36 Lab Results: Laboratory Results - last 24 hr 08/05/18 08/05/18 08/05/18 22:36 22:36 22:36 WBC 2.9 L RBC 3.31 L Hgb 10.1 Hct 30.0 L MCV 91 MCH 30 MCHC 34 RDW 19.2 H Plt Count 89 L Add Manual Diff Complete Total Counted 100 Seg Neuts % (Manual) 67.0 Band Neutrophils % 0 Lymphocytes % (Manual) 23.0 Reactive Lymphs % (Man) 0 Monocytes % (Manual) 7.0 Eosinophils % (Manual) 2.0 Basophils % (Manual) 0 Metamyelocytes % 1.0 Myelocytes % 0 Promyelocytes % 0 Blast Cells % 0 Nucleated RBC % Not Reportable Seg Neutrophils # Man 1.9 Band Neutrophils # 0.0 Lymphocytes # (Manual) 0.7 L Abs React Lymphs (Man) 0.0 Monocytes # (Manual) 0.2 Eosinophils # (Manual) 0.1 Basophils # (Manual) 0.0 Metamyelocytes # 0.0 Myelocytes # 0.0 Promyelocytes # 0.0 Blast Cells # 0.0 WBC Morphology Not Reportable Hypersegmented Neuts Not Reportable Hyposegmented Neuts Not Reportable Hypogranular Neuts Not Reportable Smudge Cells Not Reportable Toxic Granulation Not Reportable Toxic Vacuolation Not Reportable Dohle Bodies Not Reportable Pelger-Huet Anomaly Not Reportable Fredy Rods Not Reportable Platelet Estimate Appears decreased Clumped Platelets Not Reportable Plt Clumps, EDTA Not Reportable Large Platelets Not Reportable Giant Platelets Not Reportable Platelet Satelliting Not Reportable Plt Morphology Comment Not Reportable RBC Morphology Not Reportable Dimorphic RBCs Not Reportable Polychromasia Not Reportable Hypochromasia Not Reportable Poikilocytosis 2+ Anisocytosis 1+ Microcytosis Not Reportable Macrocytosis Not Reportable Spherocytes Not Reportable Pappenheimer Bodies Not Reportable Sickle Cells Not Reportable Target Cells Not Reportable Tear Drop Cells 2+ Ovalocytes 2+ Helmet Cells Not Reportable [place] Bodies Not Reportable [place] Rings Not Reportable [place] Cells Not Reportable Bite Cells Not Reportable Crenated Cell Not Reportable Elliptocytes 1+ Acanthocytes (Spur) Not Reportable Rouleaux Not Reportable Hemoglobin C Crystals Not Reportable Schistocytes Not Reportable Malaria parasites Not Reportable Adriel Bodies Not Reportable Hem Pathologist Commnt No PT 15.0 H INR 1.14 H APTT 28.5 Sodium 140 Potassium 3.0 L Chloride 110.3 H Carbon Dioxide 18 L Anion Gap 15 BUN 8 Creatinine 1.0 Estimated GFR > 60 BUN/Creatinine Ratio 8 Glucose 129 H POC Glucose Calcium 8.0 L Total Bilirubin 0.70 AST 33 ALT 34 Alkaline Phosphatase 115 Total Protein 5.8 L Albumin 3.1 L Albumin/Globulin Ratio 1.1 Blood Type Antibody Screen 08/05/18 08/06/18 08/06/18 23:45 00:53 05:30 WBC RBC Hgb 9.8 L 10.1 Hct 29.9 L 30.3 MCV MCH MCHC RDW Plt Count Add Manual Diff Total Counted Seg Neuts % (Manual) Band Neutrophils % Lymphocytes % (Manual) Reactive Lymphs % (Man) Monocytes % (Manual) Eosinophils % (Manual) Basophils % (Manual) Metamyelocytes % Myelocytes % Promyelocytes % Blast Cells % Nucleated RBC % Seg Neutrophils # Man Band Neutrophils # Lymphocytes # (Manual) Abs React Lymphs (Man) Monocytes # (Manual) Eosinophils # (Manual) Basophils # (Manual) Metamyelocytes # Myelocytes # Promyelocytes # Blast Cells # WBC Morphology Hypersegmented Neuts Hyposegmented Neuts Hypogranular Neuts Smudge Cells Toxic Granulation Toxic Vacuolation Dohle Bodies Pelger-Huet Anomaly Fredy Rods Platelet Estimate Clumped Platelets Plt Clumps, EDTA Large Platelets Giant Platelets Platelet Satelliting Plt Morphology Comment RBC Morphology Dimorphic RBCs Polychromasia Hypochromasia Poikilocytosis Anisocytosis Microcytosis Macrocytosis Spherocytes Pappenheimer Bodies Sickle Cells Target Cells Tear Drop Cells Ovalocytes Helmet Cells [place] Bodies [place] Rings [place] Cells Bite Cells Crenated Cell Elliptocytes Acanthocytes (Spur) Rouleaux Hemoglobin C Crystals Schistocytes Malaria parasites Adriel Bodies Hem Pathologist Commnt PT INR APTT Sodium Potassium Chloride Carbon Dioxide Anion Gap BUN Creatinine Estimated GFR BUN/Creatinine Ratio Glucose POC Glucose Calcium Total Bilirubin AST ALT Alkaline Phosphatase Total Protein Albumin Albumin/Globulin Ratio Blood Type O POSITIVE Antibody Screen Negative 08/06/18 08/06/18 10:36 16:26 WBC RBC Hgb 10.2 Hct 30.8 MCV MCH MCHC RDW Plt Count Add Manual Diff Total Counted Seg Neuts % (Manual) Band Neutrophils % Lymphocytes % (Manual) Reactive Lymphs % (Man) Monocytes % (Manual) Eosinophils % (Manual) Basophils % (Manual) Metamyelocytes % Myelocytes % Promyelocytes % Blast Cells % Nucleated RBC % Seg Neutrophils # Man Band Neutrophils # Lymphocytes # (Manual) Abs React Lymphs (Man) Monocytes # (Manual) Eosinophils # (Manual) Basophils # (Manual) Metamyelocytes # Myelocytes # Promyelocytes # Blast Cells # WBC Morphology Hypersegmented Neuts Hyposegmented Neuts Hypogranular Neuts Smudge Cells Toxic Granulation Toxic Vacuolation Dohle Bodies Pelger-Huet Anomaly Fredy Rods Platelet Estimate Clumped Platelets Plt Clumps, EDTA Large Platelets Giant Platelets Platelet Satelliting Plt Morphology Comment RBC Morphology Dimorphic RBCs Polychromasia Hypochromasia Poikilocytosis Anisocytosis Microcytosis Macrocytosis Spherocytes Pappenheimer Bodies Sickle Cells Target Cells Tear Drop Cells Ovalocytes Helmet Cells [place] Bodies [place] Rings [place] Cells Bite Cells Crenated Cell Elliptocytes Acanthocytes (Spur) Rouleaux Hemoglobin C Crystals Schistocytes Malaria parasites Adriel Bodies Hem Pathologist Commnt PT INR APTT Sodium Potassium Chloride Carbon Dioxide Anion Gap BUN Creatinine Estimated GFR BUN/Creatinine Ratio Glucose POC Glucose 86 Calcium Total Bilirubin AST ALT Alkaline Phosphatase Total Protein Albumin Albumin/Globulin Ratio Blood Type Antibody Screen Assessment and Plan - Patient Problems (1) GI bleed Current Visit: Yes Status: Acute Plan to address problem: - No gross bleeding since admit, and no abdominal pain or change in bowels. - Does have anemia, but stable, and may be anemic from comorbids (HIV). - Discussed inpatient v outpatient colonoscopy with patient, and she would like to be discharged to have a colonoscopy as an outpatient. - Since her hct and other labs/vitals are stable, in my opinion she is safe to d/c and have close followup to have outpatient colonoscopy. - Gave patient our card and contact information.
--- NOTE | 2018-08-06 18:21 | Discharge Summary ---
Providers - Providers Date of Admission: 08/06/18 00:39 Date of discharge: 08/06/18 Attending physician: CHIDI CARLIN 08/06/18 00:00 Consult to Physician [CONS] Stat Comment: Dr. Sharma spoke with Dr. Gil @ [id number] Consulting Provider: KATERIN GIL Physician Instructions: Reason For Exam: GI bleed Primary care physician: Pt with recatla bleed H and H has remained stable and can get F/U colon as out patient Hospitalization Condition: Stable Hospital course: Patient admittedFor rectal bleeding.It resolvedBrought hospital stay.Patient di dn't complain of some chronic lower back pain. She states secondary toJim joint disease in the past. Patient has been informedTo discontinueAll incense at this time. She understands she will [facility]. Disposition: TO HOME OR SELFCARE Core Measure Documentation - Palliative Care Palliative Care/ Comfort Measures: Not Applicable - Core Measures Any of the following diagnoses?: none Exam - Constitutional Vitals: Temp Pulse Resp BP Pulse Ox 98.8 F 94 H 20 150/77 90 08/06/18 16:20 08/06/18 16:19 08/06/18 16:19 08/06/18 16:19 08/06/18 16:19 General appearance: Present: no acute distress, well-nourished - EENT Eyes: Present: PERRL ENT: hearing intact, clear oral mucosa - Neck Neck: Present: supple, normal ROM - Respiratory Respiratory effort: normal Respiratory: bilateral: CTA - Cardiovascular Heart Sounds: Present: S1 & S2. Absent: rub, click - Extremities Extremities: pulses symmetrical, No edema Peripheral Pulses: within normal limits - Abdominal General gastrointestinal: Present: soft, non-tender, non-distended, normal bowel sounds Female genitourinary: Present: normal - Integumentary Integumentary: Present: clear, warm, dry - Musculoskeletal Musculoskeletal: gait normal, strength equal bilaterally - Psychiatric Psychiatric: appropriate mood/affect, intact judgment & insight - Neurologic Neurologic: CNII-XII intact, moves all extremities Plan Activity: no restrictions Weight Bearing Status: Full Weight Bearing Diet: regular Follow up with: NAIF COLORADO MD [Staff Physician] - 3-5 Days
== END 2018-08-06 20:08 | disposition home or self-care (01) | DRG 378 ==
LOC: ED 21:56 → 4A 08-06 00:39
PROVIDERS: ADMIT Internal Medicine; ATTEND Internal Medicine
DX: K92.2 Gastrointestinal hemorrhage, unspecified (principal); E44.1 Mild protein-calorie malnutrition; M54.9 Dorsalgia, unspecified; J44.9 Chronic obstructive pulmonary disease, unspecified; I10 Essential (primary) hypertension; F31.9 Bipolar disorder, unspecified; E87.6 Hypokalemia; M54.5 Low back pain; B19.20 Unspecified viral hepatitis C without hepatic coma; D69.6 Thrombocytopenia, unspecified; Z90.49 Acquired absence of other specified parts of digestive tract; Z90.710 Acquired absence of both cervix and uterus; Z79.899 Other long term (current) drug therapy; Z82.49 Family history of ischemic heart disease and other diseases of the circulatory system; Z21 Asymptomatic human immunodeficiency virus [HIV] infection status
CPT/HCPCS: 36415; 72100; 72131; 80053; 82962; 85007; 85014; 85018; 85025; 85610; 85730; 86850; 86900; 86901; 87116; 94760; 96374; G0378; J7030

== ENCOUNTER 2018-09-03 07:47 | Inpatient (IN) | payer SELFPAY ==
[2018-09-03] MEDS ORDERED: ASPIRIN PO ONE (08:15)
[2018-09-03 09:04] LABS: Hematocrit 36.3 % (30.3-42.9); Hemoglobin 11.7 gm/dl (10.1-14.3); Mean Corpuscular HGB Conc 32 % (30-34); Mean Corpuscular Volume 89 fl (79-97); Platelet Count 124 K/mm3 (140-440)
[2018-09-03 09:05] LABS: Red Cell Distribution Width 20.4 % (13.2-15.2)
[2018-09-03 09:16] LABS: BUN/Creatinine Ratio 7; Blood Urea Nitrogen 4 mg/dL (7-17); Calcium 8.6 mg/dL (8.4-10.2); Hemolysis Index 6
--- NOTE | 2018-09-03 09:35 | Emergency Department Report ---
ED Chest Pain HPI - General Chief Complaint: Chest Pain Stated Complaint: CHEST PAIN Time Seen by Provider: 09/03/18 09:25 Source: patient, EMS Mode of arrival: Stretcher Limitations: No Limitations - History of Present Illness Initial Comments: Patient is 53 years old female with history of HIV, hypertension and diabetes. Patient presented to the ER via EMS complaining of chest pain, left-sided, tightness with no radiation. Patient stated that pain started after midnight. Patient stated that pain comes and goes and when it comes it 8 out of 10. Patient denied any cough or shortness of breath or chills or fever. MD Complaint: chest pain -: This morning Onset: during rest Pain Location: left chest Pain Radiation: none Severity: moderate Severity scale (0 -10): 8 Quality: tightness, heaviness Consistency: intermittent - Related Data Previous Rx's Medication Instructions Recorded Last Taken Type Lisinopril/Hydrochlorothiazide 1 tab PO QDAY #30 tablet 01/21/18 Unknown Rx [Zestoretic 20-12.5 mg] Quetiapine Fumarate [SEROquel] 100 mg PO QHS #30 tablet 01/21/18 Unknown Rx Sertraline HCl [Zoloft] 100 mg PO QAM #30 tablet 01/21/18 Unknown Rx Venlafaxine HCl 75 mg PO QAM #30 tablet 01/21/18 Unknown Rx hydrOXYzine pamoate [Hydroxyzine 25 mg PO TID #90 capsule 01/21/18 Unknown Rx Pamoate] Allergies Allergy/AdvReac Type Severity Reaction Status Date / Time No Known Allergies Allergy Unverified 01/12/18 23:56 Heart Score - HEART Score History: Moderately suspicious EKG: Non-specific Age: 45-65 Risk factors: > 3 risk factors or hx of atherosclerotic disease Troponin: < normal limit HEART Score: 5 - Critical Actions Critical Actions: 4-6 pts:12-16.6% risk of adverse cardiac event. Should be admitted ED Review of Systems ROS: Stated complaint: CHEST PAIN Other details as noted in HPI Comment: All other systems reviewed and negative Constitutional: denies: chills, fever Respiratory: denies: cough, orthopnea, shortness of breath, SOB with exertion, SOB at rest, wheezing Cardiovascular: chest pain, palpitations Gastrointestinal: denies: abdominal pain, nausea Musculoskeletal: denies: back pain Neurological: denies: headache, weakness, numbness, paresthesias ED Past Medical Hx - Past Medical History Hx Hypertension: Yes Hx Congestive Heart Failure: No Hx Diabetes: Yes Hx Asthma: No Hx COPD: Yes (3L O2 at home) Hx HIV: Yes Additional medical history: Hep c - Surgical History Hx Cholecystectomy: Yes Additional Surgical History: Hysterectomy - Social History Smoking Status: Never Smoker Substance Use Type: None - Medications Home Medications: Home Medications Medication Instructions Recorded Confirmed Last Taken Type Lisinopril/Hydrochlorothiazide 1 tab PO QDAY #30 tablet 01/21/18 08/06/18 Unknown Rx [Zestoretic 20-12.5 mg] Quetiapine Fumarate [SEROquel] 100 mg PO QHS #30 tablet 01/21/18 08/06/18 Unknown Rx Sertraline HCl [Zoloft] 100 mg PO QAM #30 tablet 01/21/18 08/06/18 Unknown Rx Venlafaxine HCl 75 mg PO QAM #30 tablet 01/21/18 08/06/18 Unknown Rx hydrOXYzine pamoate [Hydroxyzine 25 mg PO TID #90 capsule 01/21/18 08/06/18 Unknown Rx Pamoate] ED Physical Exam - General Limitations: No Limitations General appearance: alert, in no apparent distress - Head Head exam: Present: atraumatic, normocephalic, normal inspection - Eye Eye exam: Present: normal appearance. Absent: PERRL - ENT ENT exam: Present: normal exam, normal orophraynx, mucous membranes moist - Neck Neck exam: Present: normal inspection, full ROM. Absent: tenderness, meningismus, lymphadenopathy, thyromegaly - Respiratory Respiratory exam: Present: normal lung sounds bilaterally. Absent: respiratory distress, wheezes, rales, rhonchi, chest wall tenderness, accessory muscle use, decreased breath sounds, prolonged expiratory - Cardiovascular Cardiovascular Exam: Present: regular rate, normal rhythm, normal heart sounds - GI/Abdominal GI/Abdominal exam: Present: soft, normal bowel sounds. Absent: distended, tenderness, guarding, rebound, rigid, organomegaly, mass, bruit, pulsatile mass, hernia - Extremities Exam Extremities exam: Present: normal inspection, full ROM, normal capillary refill. Absent: pedal edema, calf tenderness - Back Exam Back exam: Present: normal inspection, full ROM. Absent: tenderness, CVA tenderness (R), CVA tenderness (L), muscle spasm, paraspinal tenderness, vertebral tenderness - Neurological Exam Neurological exam: Present: alert, oriented X3, CN II-XII intact, normal gait, reflexes normal - Skin Skin exam: Present: warm, intact, normal color ED Course Vital Signs 09/03/18 09/03/18 09/03/18 07:54 08:00 08:15 Temperature Pulse Rate 101 H 101 H 98 H Respiratory 26 H 14 19 Rate Blood Pressure 121/74 126/75 Blood Pressure [Left] O2 Sat by Pulse 85 97 97 Oximetry 09/03/18 09/03/18 09/03/18 08:16 08:30 08:31 Temperature 98.0 F 98.0 F Pulse Rate 100 H 103 H 100 H Respiratory 20 15 20 Rate Blood Pressure 127/72 119/81 Blood Pressure 127/72 [Left] O2 Sat by Pulse 95 96 95 Oximetry 09/03/18 09/03/18 09/03/18 08:45 09:00 09:15 Temperature Pulse Rate 102 H 98 H 96 H Respiratory 28 H 19 20 Rate Blood Pressure 128/74 117/76 122/77 Blood Pressure [Left] O2 Sat by Pulse 90 95 93 Oximetry 09/03/18 09/03/18 09/03/18 09:30 09:46 10:00 Temperature Pulse Rate 92 H 99 H 89 Respiratory 21 19 17 Rate Blood Pressure 137/81 139/87 121/79 Blood Pressure [Left] O2 Sat by Pulse 94 90 98 Oximetry 09/03/18 09/03/18 09/03/18 10:15 10:30 10:45 Temperature Pulse Rate 91 H 98 H 98 H Respiratory 17 17 16 Rate Blood Pressure 115/75 118/75 117/78 Blood Pressure [Left] O2 Sat by Pulse 99 98 98 Oximetry 09/03/18 09/03/18 09/03/18 11:00 11:15 11:30 Temperature Pulse Rate 94 H 93 H 89 Respiratory 14 15 18 Rate Blood Pressure 113/75 122/80 123/84 Blood Pressure [Left] O2 Sat by Pulse 99 99 97 Oximetry 09/03/18 09/03/18 09/03/18 11:45 12:00 12:15 Temperature Pulse Rate 85 91 H 90 Respiratory 17 16 16 Rate Blood Pressure 131/85 123/77 130/81 Blood Pressure [Left] O2 Sat by Pulse 95 99 99 Oximetry 09/03/18 09/03/18 09/03/18 12:30 12:45 13:00 Temperature Pulse Rate 89 85 86 Respiratory 16 15 16 Rate Blood Pressure 127/78 131/83 124/72 Blood Pressure [Left] O2 Sat by Pulse 98 99 99 Oximetry 09/03/18 09/03/18 09/03/18 13:15 13:30 13:37 Temperature 98.6 F Pulse Rate 83 88 Respiratory 14 13 Rate Blood Pressure 122/75 120/76 Blood Pressure [Left] O2 Sat by Pulse 99 99 Oximetry ED Medical Decision Making - Lab Data Result diagrams: 09/03/18 08:30 09/03/18 08:30 - EKG Data -: EKG Interpreted by Ny EKG shows normal: sinus rhythm Rate: normal - EKG Data Interpretation: no acute changes - Radiology Data Radiology results: report reviewed Referring Physician: HILARIO DONAHUE Patient Name: GO MCCOY Date of : 1965 Sex: Female Report Date: 2018-09-03 Report Status: Finalized Findings [facility] [address] [place] [address] XRay Report Signed Patient: GO MCCOY MR#: [id number] : 1965 Acct:[id number] Age/Sex: 53 / F ADM Date: 09/03/18 Loc: ED Attending Dr: Ordering Physician: HILARIO DONAHUE Date of Service: 09/03/18 Procedure(s): XR chest 1V ap Accession Number(s): [id number] cc: HILARIO DONAHUE Fluoro Time In Minutes: EXAM: XR CHEST 1V AP HISTORY: Chest Pain TECHNIQUE: AP CXR dated 09/03/2018 at 8:34 AM. COMPARISON: None available. FINDINGS: The heart size and mediastinum are within normal limits. The lung chaidez and costophrenic angles are clear. There is no acute parenchymal infiltrate, pleural effusion, or pneumothorax seen. The visualized bony structures are within normal limits. IMPRESSION: 1. No evidence for acute cardiopulmonary disease seen. This document is electronically signed by Bautista Lyon MD., September 03 2018 10:23:58 AM ET Transcribed By: ASM Dictated By: BAUTISTA LYON Electronically Authenticated By: BAUTISTA LYON Signed Date/Time: 09/03/18 1026 DD/ 0 TD/TT: 09/03/18950 - Medical Decision Making Patient is 53 years old female with history of HIV, hypertension and diabetes. Patient presented to the ER via EMS complaining of chest pain, left-sided, tightness with no radiation. Patient stated that pain started after midnight. Patient stated that pain comes and goes and when it comes it 8 out of 10. Patient denied any cough or shortness of breath or chills or fever. EKG did not show any ST elevation. Chest x-ray is negative for acute finding. First set of troponin is negative. D-dimer is negative also. I discussed the patient is Dr. Bishop, he agreed to admit the patient to medical service for further management. Critical care attestation.: If time is entered above; I have spent that time in minutes in the direct care of this critically ill patient, excluding procedure time. ED Disposition Clinical Impression: Chest pain, Hypokalemia Disposition: OP ADMIT IP TO THIS HOSP Is pt being admited?: Yes Condition: Stable Instructions: Chest Pain (ED) Referrals: FREDI NUNEZ MD [Primary Care Provider] - 3-5 Days
[2018-09-03] MEDS ORDERED: K-DUR PO ONE (10:16)
[2018-09-03 10:22] LABS: INR 1.27 (0.87-1.13)
[2018-09-03 10:23] LABS: Partial Thromboplastin Time 34.6 Sec. (24.2-36.6)
--- NOTE | 2018-09-03 10:26 | XRay Report ---
EXAM: XR CHEST 1V AP HISTORY: Chest Pain TECHNIQUE: AP CXR dated 09/03/2018 at 8:34 AM. COMPARISON: None available. FINDINGS: The heart size and mediastinum are within normal limits. The lung chaidez and costophrenic angles are clear. There is no acute parenchymal infiltrate, pleural effusion, or pneumothorax seen. The visua lized bony structures are within normal limits. IMPRESSION: 1. No evidence for acute cardiopulmonary disease seen. This document is electronically signed by Gerald Villarreal MD., September 03 2018 10:23:58 AM ET
[2018-09-03 11:11] LABS: Basophils % (Manual) 0 % (0.0-1.8); Total Cells Counted 100
[2018-09-03 11:12] LABS: Anisocytosis 1+
[2018-09-03 11:13] LABS: Platelet Estimate Consistent w Auto
[2018-09-03] MEDS ORDERED: NACL 0.9% 500 ML 500 ML IV ONE (11:35)
[2018-09-03] MEDS ORDERED: NACL 0.9% 500 ML 500 ML ONE (11:39)
[2018-09-03] MEDS: KCL 10MEQ/100ML 10 MEQ/100 ML BAG IV SCH ×2 (12:02→16:30)
--- NOTE | 2018-09-03 13:06 | Event Note ---
Date: 09/03/18 53 YO Female with HIV, HTN, DM presents to ED for evaluation of chest pain. Pt seen and evaluated and treated I[facility] chest pain protocol. Pt treated with serial cardiac enzymes, ekg, telemetry which were unremarkable, and did not reveal evidence of ischemia. Pt medically optimized and found to have GERD, Pt discharged home and instructed to F/U Pcp 1wk, cardiology 1wk, and ID 1 wk. Pt instructed to resume all previous medication. - General Limitations: No Limitations General appearance: alert, in no apparent distress - Head Head exam: Present: atraumatic, normocephalic, normal inspection - Eye Eye exam: Present: normal appearance. Absent: PERRL - ENT ENT exam: Present: normal exam, normal orophraynx, mucous membranes moist - Neck Neck exam: Present: normal inspection, full ROM. Absent: tenderness, meningismus, lymphadenopathy, thyromegaly - Respiratory Respiratory exam: Present: normal lung sounds bilaterally. Absent: respiratory distress, wheezes, rales, rhonchi, chest wall tenderness, accessory muscle use, decreased breath sounds, prolonged expiratory - Cardiovascular Cardiovascular Exam: Present: regular rate, normal rhythm, normal heart sounds - GI/Abdominal GI/Abdominal exam: Present: soft, normal bowel sounds. Absent: distended, tenderness, guarding, rebound, rigid, organomegaly, mass, bruit, pulsatile mass, hernia - Extremities Exam Extremities exam: Present: normal inspection, full ROM, normal capillary refill. Absent: pedal edema, calf tenderness - Back Exam Back exam: Present: normal inspection, full ROM. Absent: tenderness, CVA tenderness (R), CVA tenderness (L), muscle spasm, paraspinal tenderness, vertebral tenderness - Neurological Exam Neurological exam: Present: alert, oriented X3, CN II-XII intact, normal gait, reflexes normal - Skin Skin exam: Present: warm, intact, normal color
[2018-09-03] MEDS ORDERED: PROTONIX PO ONE (14:00)
[2018-09-03] MEDS ORDERED: HALDOL IM PRN (23:48)
--- NOTE | 2018-09-04 01:16 | Event Note ---
Date: 09/04/18 The patient upon discharge endorsed suicidal ideation. This was brought to my attention by the nursing staff. The patient indicates that she did not tell the preceding emergency medicine physician, or the preceding hospital medicine physician that she was feeling suicidal. She also indicates that she is having hallucinations. She indicates that she is not having pain currently. She indicates her symptoms are constant. The patient's recent emergency room visit has been reviewed by myself. She had extensive cardiovascular workup here in the emergency room, and was also seen in conjunction with the hospital medicine service, who have cleared the patient medically, and I agree with their assessment. I highly suspect that the patient is malingering, and endorsing complaints of secondary gain. However, given her past history and her endorsement of suicidality, she will be placed on a 1013, and a psychiatric consultation has been requested. I have requested that the nursing team before medication reconciliation. At this point in time, the patient does not appear to have an acute medical issue that would preclude psychiatric admission, consultation, hospitalization and placement. Vital Signs 09/03/18 09/03/18 09/03/18 07:54 08:00 08:15 Temperature Pulse Rate 101 H 101 H 98 H Respiratory 26 H 14 19 Rate Blood Pressure 121/74 126/75 Blood Pressure [Left] O2 Sat by Pulse 85 97 97 Oximetry 09/03/18 09/03/18 09/03/18 08:16 08:30 08:31 Temperature 98.0 F 98.0 F Pulse Rate 100 H 103 H 100 H Respiratory 20 15 20 Rate Blood Pressure 127/72 119/81 Blood Pressure 127/72 [Left] O2 Sat by Pulse 95 96 95 Oximetry 09/03/18 09/03/18 09/03/18 08:45 09:00 09:15 Temperature Pulse Rate 102 H 98 H 96 H Respiratory 28 H 19 20 Rate Blood Pressure 128/74 117/76 122/77 Blood Pressure [Left] O2 Sat by Pulse 90 95 93 Oximetry 09/03/18 09/03/18 09/03/18 09:30 09:46 10:00 Temperature Pulse Rate 92 H 99 H 89 Respiratory 21 19 17 Rate Blood Pressure 137/81 139/87 121/79 Blood Pressure [Left] O2 Sat by Pulse 94 90 98 Oximetry 09/03/18 09/03/18 09/03/18 10:15 10:30 10:45 Temperature Pulse Rate 91 H 98 H 98 H Respiratory 17 17 16 Rate Blood Pressure 115/75 118/75 117/78 Blood Pressure [Left] O2 Sat by Pulse 99 98 98 Oximetry 09/03/18 09/03/18 09/03/18 11:00 11:15 11:30 Temperature Pulse Rate 94 H 93 H 89 Respiratory 14 15 18 Rate Blood Pressure 113/75 122/80 123/84 Blood Pressure [Left] O2 Sat by Pulse 99 99 97 Oximetry 09/03/18 09/03/18 09/03/18 11:45 12:00 12:15 Temperature Pulse Rate 85 91 H 90 Respiratory 17 16 16 Rate Blood Pressure 131/85 123/77 130/81 Blood Pressure [Left] O2 Sat by Pulse 95 99 99 Oximetry 09/03/18 09/03/18 09/03/18 12:30 12:45 13:00 Temperature Pulse Rate 89 85 86 Respiratory 16 15 16 Rate Blood Pressure 127/78 131/83 124/72 Blood Pressure [Left] O2 Sat by Pulse 98 99 99 Oximetry 09/03/18 09/03/18 09/03/18 13:15 13:30 13:37 Temperature 98.6 F Pulse Rate 83 88 Respiratory 14 13 Rate Blood Pressure 122/75 120/76 Blood Pressure [Left] O2 Sat by Pulse 99 99 Oximetry 09/03/18 09/03/18 09/03/18 13:45 14:00 14:15 Temperature Pulse Rate 89 85 86 Respiratory 14 14 16 Rate Blood Pressure 127/77 131/78 122/75 Blood Pressure [Left] O2 Sat by Pulse 99 99 98 Oximetry 09/03/18 09/03/18 09/03/18 14:30 14:45 15:00 Temperature Pulse Rate 88 89 91 H Respiratory 16 16 15 Rate Blood Pressure 128/79 135/80 132/78 Blood Pressure [Left] O2 Sat by Pulse 99 100 Oximetry 09/03/18 09/03/18 09/03/18 15:15 15:30 15:45 Temperature Pulse Rate 90 89 88 Respiratory 18 18 17 Rate Blood Pressure 113/65 108/66 108/65 Blood Pressure [Left] O2 Sat by Pulse 97 91 91 Oximetry 09/03/18 09/03/18 09/03/18 16:00 16:15 16:30 Temperature Pulse Rate 88 88 86 Respiratory 17 16 16 Rate Blood Pressure 112/64 115/61 121/73 Blood Pressure [Left] O2 Sat by Pulse 94 94 96 Oximetry 09/03/18 09/03/18 09/03/18 16:45 17:00 17:15 Temperature Pulse Rate 92 H 87 86 Respiratory 23 16 19 Rate Blood Pressure 129/76 122/69 118/68 Blood Pressure [Left] O2 Sat by Pulse 94 94 95 Oximetry 09/03/18 09/03/18 09/03/18 17:30 17:44 17:45 Temperature 97.6 F Pulse Rate 87 87 Respiratory 18 18 Rate Blood Pressure 115/62 114/61 Blood Pressure [Left] O2 Sat by Pulse 94 95 Oximetry 09/03/18 09/03/18 09/03/18 18:00 18:15 18:30 Temperature Pulse Rate 91 H 87 84 Respiratory 17 18 18 Rate Blood Pressure 111/63 113/70 101/68 Blood Pressure [Left] O2 Sat by Pulse 82 L 80 L 77 L Oximetry 09/03/18 09/03/18 09/03/18 18:46 20:00 21:12 Temperature 98.5 F Pulse Rate 92 H 98 H Respiratory 16 18 Rate Blood Pressure 141/79 151/84 Blood Pressure 142/85 [Left] O2 Sat by Pulse 80 L 92 92 Oximetry 09/03/18 09/03/18 09/03/18 21:16 21:30 21:46 Temperature Pulse Rate Respiratory Rate Blood Pressure 151/84 151/84 151/84 Blood Pressure [Left] O2 Sat by Pulse 99 100 100 Oximetry 09/03/18 09/03/18 09/03/18 22:00 22:16 22:30 Temperature Pulse Rate Respiratory Rate Blood Pressure 147/79 147/79 147/79 Blood Pressure [Left] O2 Sat by Pulse 96 99 100 Oximetry 09/03/18 09/03/18 09/03/18 22:46 23:00 23:16 Temperature Pulse Rate Respiratory Rate Blood Pressure 147/79 147/79 Blood Pressure [Left] O2 Sat by Pulse 97 99 99 Oximetry 09/03/18 09/03/18 23:30 23:46 Temperature Pulse Rate Respiratory Rate Blood Pressure 141/79 141/79 Blood Pressure [Left] O2 Sat by Pulse 99 92 Oximetry Lab Results 09/03/18 09/03/18 09/03/18 Range/Units 08:30 08:30 09:40 WBC 2.2 L (4.5-11.0) K/mm3 RBC 4.10 (3.65-5.03) M/mm3 Hgb 11.7 (10.1-14.3) gm/dl Hct 36.3 (30.3-42.9) % MCV 89 (79-97) fl MCH 29 (28-32) pg MCHC 32 (30-34) % RDW 20.4 H (13.2-15.2) % Plt Count 124 L (140-440) K/mm3 Add Manual Diff Complete Total Counted 100 Seg Neuts % (Manual) 51.0 (40.0-70.0) % Band Neutrophils % 2.0 % Lymphocytes % (Manual) 29.0 (13.4-35.0) % Reactive Lymphs % (Man) 0 % Monocytes % (Manual) 17.0 H (0.0-7.3) % Eosinophils % (Manual) 1.0 (0.0-4.3) % Basophils % (Manual) 0 (0.0-1.8) % Metamyelocytes % 0 % Myelocytes % 0 % Promyelocytes % 0 % Blast Cells % 0 % Nucleated RBC % Not Reportable Seg Neutrophils # Man 1.1 L (1.8-7.7) K/mm3 Band Neutrophils # 0.0 K/mm3 Lymphocytes # (Manual) 0.6 L (1.2-5.4) K/mm3 Abs React Lymphs (Man) 0.0 K/mm3 Monocytes # (Manual) 0.4 (0.0-0.8) K/mm3 Eosinophils # (Manual) 0.0 (0.0-0.4) K/mm3 Basophils # (Manual) 0.0 (0.0-0.1) K/mm3 Metamyelocytes # 0.0 K/mm3 Myelocytes # 0.0 K/mm3 Promyelocytes # 0.0 K/mm3 Blast Cells # 0.0 K/mm3 WBC Morphology Not Reportable Hypersegmented Neuts Not Reportable Hyposegmented Neuts Not Reportable Hypogranular Neuts Not Reportable Smudge Cells Not Reportable Toxic Granulation Not Reportable Toxic Vacuolation Not Reportable Dohle Bodies Not Reportable Pelger-Huet Anomaly Not Reportable Fredy Rods Not Reportable Platelet Estimate Consistent w auto Clumped Platelets Not Reportable Plt Clumps, EDTA Not Reportable Large Platelets Not Reportable Giant Platelets Not Reportable Platelet Satelliting Not Reportable Plt Morphology Comment Not Reportable RBC Morphology Not Reportable Dimorphic RBCs Not Reportable Polychromasia Not Reportable Hypochromasia Not Reportable Poikilocytosis Not Reportable Anisocytosis 1+ Microcytosis Not Reportable Macrocytosis Not Reportable Spherocytes Not Reportable Pappenheimer Bodies Not Reportable Sickle Cells Not Reportable Target Cells Not Reportable Tear Drop Cells Not Reportable Ovalocytes Not Reportable Helmet Cells Not Reportable [place] Bodies Not Reportable [place] Rings Not Reportable Cheli Cells Not Reportable Bite Cells Not Reportable Crenated Cell Not Reportable Elliptocytes Not Reportable Acanthocytes (Spur) Not Reportable Rouleaux Not Reportable Hemoglobin C Crystals Not Reportable Schistocytes Not Reportable Malaria parasites Not Reportable Adriel Bodies Not Reportable Hem Pathologist Commnt No PT 16.7 H (12.2-14.9) Sec. INR 1.27 H (0.87-1.13) APTT 34.6 (24.2-36.6) Sec. D-Dimer < 135.00 (0-234) ng/mlDDU Sodium 143 (137-145) mmol/L Potassium 2.9 L* (3.6-5.0) mmol/L Chloride 107.3 H (98-107) mmol/L Carbon Dioxide 20 L (22-30) mmol/L Anion Gap 19 mmol/L BUN 4 L (7-17) mg/dL Creatinine 0.6 L (0.7-1.2) mg/dL Estimated GFR > 60 ml/min BUN/Creatinine Ratio 7 % Glucose 138 H (65-100) mg/dL Calcium 8.6 (8.4-10.2) mg/dL Total Creatine Kinase (30-135) units/L Troponin T < 0.010 (0.00-0.029) ng/mL Salicylates (2.8-20.0) mg/dL Acetaminophen (10.0-30.0) ug/mL Plasma/Serum Alcohol (0-0.07) % 09/03/18 09/03/18 09/03/18 Range/Units 11:43 15:24 18:20 WBC (4.5-11.0) K/mm3 RBC (3.65-5.03) M/mm3 Hgb (10.1-14.3) gm/dl Hct (30.3-42.9) % MCV (79-97) fl MCH (28-32) pg MCHC (30-34) % RDW (13.2-15.2) % Plt Count (140-440) K/mm3 Add Manual Diff Total Counted Seg Neuts % (Manual) (40.0-70.0) % Band Neutrophils % % Lymphocytes % (Manual) (13.4-35.0) % Reactive Lymphs % (Man) % Monocytes % (Manual) (0.0-7.3) % Eosinophils % (Manual) (0.0-4.3) % Basophils % (Manual) (0.0-1.8) % Metamyelocytes % % Myelocytes % % Promyelocytes % % Blast Cells % % Nucleated RBC % Seg Neutrophils # Man (1.8-7.7) K/mm3 Band Neutrophils # K/mm3 Lymphocytes # (Manual) (1.2-5.4) K/mm3 Abs React Lymphs (Man) K/mm3 Monocytes # (Manual) (0.0-0.8) K/mm3 Eosinophils # (Manual) (0.0-0.4) K/mm3 Basophils # (Manual) (0.0-0.1) K/mm3 Metamyelocytes # K/mm3 Myelocytes # K/mm3 Promyelocytes # K/mm3 Blast Cells # K/mm3 WBC Morphology Hypersegmented Neuts Hyposegmented Neuts Hypogranular Neuts Smudge Cells Toxic Granulation Toxic Vacuolation Dohle Bodies Pelger-Huet Anomaly Fredy Rods Platelet Estimate Clumped Platelets Plt Clumps, EDTA Large Platelets Giant Platelets Platelet Satelliting Plt Morphology Comment RBC Morphology Dimorphic RBCs Polychromasia Hypochromasia Poikilocytosis Anisocytosis Microcytosis Macrocytosis Spherocytes Pappenheimer Bodies Sickle Cells Target Cells Tear Drop Cells Ovalocytes Helmet Cells [place] Bodies [place] Rings Cheli Cells Bite Cells Crenated Cell Elliptocytes Acanthocytes (Spur) Rouleaux Hemoglobin C Crystals Schistocytes Malaria parasites Adriel Bodies Hem Pathologist Commnt PT (12.2-14.9) Sec. INR (0.87-1.13) APTT (24.2-36.6) Sec. D-Dimer (0-234) ng/mlDDU Sodium (137-145) mmol/L Potassium 3.9 D (3.6-5.0) mmol/L Chloride (98-107) mmol/L Carbon Dioxide (22-30) mmol/L Anion Gap mmol/L BUN (7-17) mg/dL Creatinine (0.7-1.2) mg/dL Estimated GFR ml/min BUN/Creatinine Ratio % Glucose (65-100) mg/dL Calcium (8.4-10.2) mg/dL Total Creatine Kinase (30-135) units/L Troponin T < 0.010 < 0.010 (0.00-0.029) ng/mL Salicylates (2.8-20.0) mg/dL Acetaminophen (10.0-30.0) ug/mL Plasma/Serum Alcohol (0-0.07) % 09/03/18 09/03/18 09/03/18 Range/Units 23:52 23:52 23:52 WBC (4.5-11.0) K/mm3 RBC (3.65-5.03) M/mm3 Hgb (10.1-14.3) gm/dl Hct (30.3-42.9) % MCV (79-97) fl MCH (28-32) pg MCHC (30-34) % RDW (13.2-15.2) % Plt Count (140-440) K/mm3 Add Manual Diff Total Counted Seg Neuts % (Manual) (40.0-70.0) % Band Neutrophils % % Lymphocytes % (Manual) (13.4-35.0) % Reactive Lymphs % (Man) % Monocytes % (Manual) (0.0-7.3) % Eosinophils % (Manual) (0.0-4.3) % Basophils % (Manual) (0.0-1.8) % Metamyelocytes % % Myelocytes % % Promyelocytes % % Blast Cells % % Nucleated RBC % Seg Neutrophils # Man (1.8-7.7) K/mm3 Band Neutrophils # K/mm3 Lymphocytes # (Manual) (1.2-5.4) K/mm3 Abs React Lymphs (Man) K/mm3 Monocytes # (Manual) (0.0-0.8) K/mm3 Eosinophils # (Manual) (0.0-0.4) K/mm3 Basophils # (Manual) (0.0-0.1) K/mm3 Metamyelocytes # K/mm3 Myelocytes # K/mm3 Promyelocytes # K/mm3 Blast Cells # K/mm3 WBC Morphology Hypersegmented Neuts Hyposegmented Neuts Hypogranular Neuts Smudge Cells Toxic Granulation Toxic Vacuolation Dohle Bodies Pelger-Huet Anomaly Fredy Rods Platelet Estimate Clumped Platelets Plt Clumps, EDTA Large Platelets Giant Platelets Platelet Satelliting Plt Morphology Comment RBC Morphology Dimorphic RBCs Polychromasia Hypochromasia Poikilocytosis Anisocytosis Microcytosis Macrocytosis Spherocytes Pappenheimer Bodies Sickle Cells Target Cells Tear Drop Cells Ovalocytes Helmet Cells [place] Bodies [place] Rings [place] Cells Bite Cells Crenated Cell Elliptocytes Acanthocytes (Spur) Rouleaux Hemoglobin C Crystals Schistocytes Malaria parasites Adriel Bodies Hem Pathologist Commnt PT (12.2-14.9) Sec. INR (0.87-1.13) APTT (24.2-36.6) Sec. D-Dimer (0-234) ng/mlDDU Sodium (137-145) mmol/L Potassium (3.6-5.0) mmol/L Chloride (98-107) mmol/L Carbon Dioxide (22-30) mmol/L Anion Gap mmol/L BUN (7-17) mg/dL Creatinine (0.7-1.2) mg/dL Estimated GFR ml/min BUN/Creatinine Ratio % Glucose (65-100) mg/dL Calcium (8.4-10.2) mg/dL Total Creatine Kinase (30-135) units/L Troponin T (0.00-0.029) ng/mL Salicylates < 0.3 L (2.8-20.0) mg/dL Acetaminophen < 5.0 L (10.0-30.0) ug/mL Plasma/Serum Alcohol < 0.01 (0-0.07) % 09/03/18 Range/Units 23:52 WBC (4.5-11.0) K/mm3 RBC (3.65-5.03) M/mm3 Hgb (10.1-14.3) gm/dl Hct (30.3-42.9) % MCV (79-97) fl MCH (28-32) pg MCHC (30-34) % RDW (13.2-15.2) % Plt Count (140-440) K/mm3 Add Manual Diff Total Counted Seg Neuts % (Manual) (40.0-70.0) % Band Neutrophils % % Lymphocytes % (Manual) (13.4-35.0) % Reactive Lymphs % (Man) % Monocytes % (Manual) (0.0-7.3) % Eosinophils % (Manual) (0.0-4.3) % Basophils % (Manual) (0.0-1.8) % Metamyelocytes % % Myelocytes % % Promyelocytes % % Blast Cells % % Nucleated RBC % Seg Neutrophils # Man (1.8-7.7) K/mm3 Band Neutrophils # K/mm3 Lymphocytes # (Manual) (1.2-5.4) K/mm3 Abs React Lymphs (Man) K/mm3 Monocytes # (Manual) (0.0-0.8) K/mm3 Eosinophils # (Manual) (0.0-0.4) K/mm3 Basophils # (Manual) (0.0-0.1) K/mm3 Metamyelocytes # K/mm3 Myelocytes # K/mm3 Promyelocytes # K/mm3 Blast Cells # K/mm3 WBC Morphology Hypersegmented Neuts Hyposegmented Neuts Hypogranular Neuts Smudge Cells Toxic Granulation Toxic Vacuolation Dohle Bodies Pelger-Huet Anomaly Fredy Rods Platelet Estimate Clumped Platelets Plt Clumps, EDTA Large Platelets Giant Platelets Platelet Satelliting Plt Morphology Comment RBC Morphology Dimorphic RBCs Polychromasia Hypochromasia Poikilocytosis Anisocytosis Microcytosis Macrocytosis Spherocytes Pappenheimer Bodies Sickle Cells Target Cells Tear Drop Cells Ovalocytes Helmet Cells [place] Bodies [place] Rings [place] Cells Bite Cells Crenated Cell Elliptocytes Acanthocytes (Spur) Rouleaux Hemoglobin C Crystals Schistocytes Malaria parasites Adriel Bodies Hem Pathologist Commnt PT (12.2-14.9) Sec. INR (0.87-1.13) APTT (24.2-36.6) Sec. D-Dimer (0-234) ng/mlDDU Sodium (137-145) mmol/L Potassium (3.6-5.0) mmol/L Chloride (98-107) mmol/L Carbon Dioxide (22-30) mmol/L Anion Gap mmol/L BUN (7-17) mg/dL Creatinine (0.7-1.2) mg/dL Estimated GFR ml/min BUN/Creatinine Ratio % Glucose (65-100) mg/dL Calcium (8.4-10.2) mg/dL Total Creatine Kinase 30 (30-135) units/L Troponin T (0.00-0.029) ng/mL Salicylates (2.8-20.0) mg/dL Acetaminophen (10.0-30.0) ug/mL Plasma/Serum Alcohol (0-0.07) %
[2018-09-04 10:52] LABS: Amphetamine Screen,Urine PRESUMPTIVE NEGATIVE; Benzodiazepines Screen,Urine PRESUMPTIVE NEGATIVE; Cannabinoid Screen,Urine PRESUMPTIVE NEGATIVE; Cocaine Screen,Urine PRESUMPTIVE NEGATIVE; Methadone Screen,Urine PRESUMPTIVE NEGATIVE; Opiate Screen,Urine PRESUMPTIVE NEGATIVE
[2018-09-04] MEDS ORDERED: NON-FORMULARY (Lisinopril/Hydrochlorothiazide [Zestoretic 20-12.5 Mg] 1 TAB) PO SCH (17:00)
[2018-09-04] MEDS: HCTZ PO SCH (18:10)
[2018-09-04] MEDS: VISTARIL PO SCH ×2 (18:10→21:35)
[2018-09-04] MEDS: ZESTRIL PO SCH (18:10)
[2018-09-05] MEDS: ATIVAN IM PRN (02:05)
[2018-09-05] MEDS: ZESTRIL PO SCH (11:22)
[2018-09-05] MEDS: VISTARIL PO SCH (11:22)
[2018-09-05] MEDS: HCTZ PO SCH (11:22)
--- NOTE | 2018-09-05 13:02 | Consultation ---
History of Present Illness - Reason for Consult Consult date: 09/05/18 Reason for consult: Mental Health Evaluation Requesting physician: JOHANNY HAN - Chief Complaint Chief complaint: "I am suicidal" - History of Present Psychiatric Illness 53 years old white female who presented to the ER for chest pain. Prior to the patient being discharged she endorsed SI's per the noted. Today the patient is julio césar, but guarded during the assessment. She acknowledged feeling anxious. Also, she stated that she was hearing voices. She would not elaborate more about her anxiety and the voices she is experiencing when asked. She did made a statement about being tired of life. She endorsed Si's, but would not confirm or deny a suicide plan. No gestures of HI's. Medications and Allergies Allergies Allergy/AdvReac Type Severity Reaction Status Date / Time No Known Allergies Allergy Unverified 01/12/18 23:56 Home Medications Medication Instructions Recorded Confirmed Last Taken Type Lisinopril/Hydrochlorothiazide 1 tab PO QDAY #30 tablet 01/21/18 09/04/18 Unknown Rx [Zestoretic 20-12.5 mg] Sertraline HCl [Zoloft] 100 mg PO QAM #30 tablet 01/21/18 09/04/18 Unknown Rx Venlafaxine HCl 75 mg PO QAM #30 tablet 01/21/18 09/04/18 Unknown Rx hydrOXYzine pamoate [Hydroxyzine 25 mg PO TID #90 capsule 01/21/18 09/04/18 Unknown Rx Pamoate] Quetiapine Fumarate [SEROquel] 300 mg PO QHS 09/04/18 09/04/18 Unknown History Active Meds: Active Medications Haloperidol Lactate (Haldol) 5 mg IM Q6HR PRN PRN Reason: Agitation Last Admin: 09/04/18 15:29 Dose: 5 mg Documented by: Hydrochlorothiazide (Hctz) 12.5 mg PO QDAY [facility] Last Admin: 09/05/18 11:22 Dose: 12.5 mg Documented by: Hydroxyzine Pamoate (Vistaril) 25 mg PO TID [facility] Last Admin: 09/05/18 11:22 Dose: 25 mg Documented by: Lisinopril (Zestril) 20 mg PO QDAY [facility] Last Admin: 09/05/18 11:22 Dose: 20 mg Documented by: Lorazepam (Ativan) 2 mg IM Q4HR PRN PRN Reason: Agitation Last Admin: 09/05/18 02:05 Dose: 2 mg Documented by: Past psychiatric history - Past Medical History Past Medical History: HIV/AIDS Past Surgical History: No surgical history - past Psychiatric treatment and history psychiatric treatment history: Inpatient psy services in the past per the patient. Denies a fam psy hx. Mental Status Exam - Vital signs Last Vital Signs Temp 97.9 F 09/05/18 02:07 Pulse 79 09/05/18 11:22 Resp 16 09/05/18 02:07 BP 132/81 09/05/18 11:22 Pulse Ox 94 09/05/18 02:07 - Exam Narrative exam: MSE: Appearance: calm Behavior: regular eye contact Speech: regular rate and tone Mood: guarded Affect: flat Thought Process: circumstantial Thought Content: denies HI's and VH's Motor Activity: sitting up in the bed Cognition: A/O x3 Insight: poor Judgment: poor Results Result Diagrams: 09/03/18 08:30 09/03/18 18:20 All other labs normal. 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 Today the patient is guarded during the assessment. UDS is negative. DDx: Bipolar DO, MDD with psychosis Recommendation/Plan: Continue 1013, start Seroquel 100 mg PO HS for mood/psychosis, and Buspar 7.5 mg PO BID for anxiety. Discussed possible metabolic side effects of Seroquel with the patient. Dispo: The patient was referred to inpatient psy services. Will staff with Dr Sana Gracia.
[2018-09-05] MEDS ORDERED: BUSPAR PO SCH (14:00)
[2018-09-05] MEDS: BUSPAR PO SCH (21:48)
[2018-09-06 08:22] LABS: Bilirubin,Urine NEG (Negative); Blood,Urine NEG (Negative); Color,Urine Amber (Yellow); Mucus,Urine 1+ /HPF; Protein,Urine <15 mg/dL mg/dL (Negative)
[2018-09-06 08:25] LABS: Amphetamine Screen,Urine PRESUMPTIVE NEGATIVE; Benzodiazepines Screen,Urine PRESUMPTIVE NEGATIVE; Cannabinoid Screen,Urine PRESUMPTIVE NEGATIVE; Cocaine Screen,Urine PRESUMPTIVE NEGATIVE; Methadone Screen,Urine PRESUMPTIVE NEGATIVE; Opiate Screen,Urine PRESUMPTIVE NEGATIVE
[2018-09-06] MEDS: BUSPAR PO SCH ×2 (09:44→21:49)
[2018-09-06] MEDS: HCTZ PO SCH (09:45)
[2018-09-06] MEDS: ZESTRIL PO SCH (09:45)
[2018-09-06] MEDS ORDERED: BACTRIM DS PO ONE (09:53)
--- NOTE | 2018-09-06 09:55 | Progress Note ---
Subjective - Reason for Consult Consult date: 09/06/18 Reason for consult: Psychiatry Follow-up - Chief Complaint Chief complaint: "I just want things to change" 53 years old white female who presented to the ER for chest pain. Prior to the patient being discharged she endorsed SI's per the noted. Today the patient is calm during the assessment. She stated that she "wish life could be better." She stated that the voices she was experiencing yesterday have "decreased." She rate her anxiety 4/10, with 10 being the worse. She would not confirm or deny SI's. She denies HI's and VH's. She denies any side effects of her medications. Mental Status Exam - Vital signs Last Vital Signs Temp 97.8 F 09/06/18 07:42 Pulse 90 09/06/18 07:42 Resp 20 09/06/18 07:42 BP 90/60 09/06/18 07:42 Pulse Ox 90 09/06/18 07:42 - Exam Narrative exam: MSE: Appearance: calm Behavior: regular eye contact Speech: regular rate and tone Mood: "not well" Affect: flat Thought Process: circumstantial Thought Content: denies HI's and VH's, intermittent AH's Motor Activity: sitting up in the bed Cognition: A/O x3 Insight: variable Judgment: variable Assessment and Plan Impression: Unspecified Mood DO with psy features. Unspecified Anxiety DO. Today the patient is calm during the assessment. UDS is negative. DDx: Bipolar DO, MDD with psychosis Recommendation/Plan: Continue 1013, Seroquel 100 mg PO HS for mood/psychosis, and Buspar 7.5 mg PO BID for anxiety. Discussed possible metabolic side effects of Seroquel with the patient. Dispo: The patient was referred to inpatient psy services. Staffed with Dr Bailey Gracia.
[2018-09-07] MEDS: BUSPAR PO SCH ×2 (10:59→22:38)
[2018-09-07] MEDS: ZESTRIL PO SCH (10:59)
[2018-09-07] MEDS: HCTZ PO SCH (10:59)
--- NOTE | 2018-09-07 13:59 | Progress Note ---
Subjective - Reason for Consult Consult date: 09/07/18 Reason for consult: Psychiatric Follow-up Evaluation - Chief Complaint Chief complaint: "They're going to kill me" Patient is a 53 years old white female who presented to the ER for chest pain. Prior to the patient being discharged she endorsed SI's per the noted. Today the patient is tearful and paranoid during the assessment. She stated "Here they come. They're going to kill me ." Patient endorses auditory hallucinations telling her that she is going to be without legs, they will kill her, and take her to [place]. She rated her anxiety 10/10, with 10 being the worse. She would not confirm or deny SI's. She denies HI's and VH's. She denies any side effects of her medications. Mental Status Exam - Vital signs Last Vital Signs Temp 98.5 F 09/07/18 09:54 Pulse 97 H 09/07/18 10:59 Resp 12 09/07/18 09:54 BP 113/63 09/07/18 10:59 Pulse Ox 96 09/07/18 09:52 - Exam Narrative exam: Mental Status Exam: Appearance: anxious, cooperative Behavior: regular eye contact Speech: regular rate and tone Mood: "not well" Affect: flat Thought Process: circumstantial Thought Content: denies HI's and VH's; AH's and paranoid delusions Motor Activity: sitting up in the bed Cognition: A/O x3 Insight: poor Judgment: variable Assessment and Plan Impression: Unspecified Mood DO with psy features. Unspecified Anxiety DO. Today the patient is tearful and paranoid during the assessment. UDS is negative. DDx: Bipolar DO, MDD with psychosis Recommendation/Plan: 1. Continue 1013. 2. Increase Seroquel 200 mg PO HS for mood/psychosis, and Buspar 10 mg PO BID for anxiety. Discussed possible metabolic side effects of Seroquel with the patient. Disposition: The patient was referred to inpatient psychiatric services. Staffed with Dr. Sana Gracia.
[2018-09-07] MEDS ORDERED: BUSPAR PO SCH (16:09)
[2018-09-08] MEDS: ZESTRIL PO SCH (10:35)
[2018-09-08] MEDS: HCTZ PO SCH (10:35)
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
[2018-09-08] MEDS: BUSPAR PO SCH ×2 (10:58→23:22)
[2018-09-09] MEDS ORDERED: NACL 0.9% 1000 ML 1,000 ML IV ONE ×2 (02:55→06:52)
[2018-09-09] MEDS ORDERED: NACL 0.9% 1000 ML 1,000 ML ONE (02:57)
[2018-09-09 07:11] LABS: Hematocrit 33.7 % (30.3-42.9); Mean Corpuscular HGB Conc 33 % (30-34); Mean Corpuscular Volume 88 fl (79-97); Red Blood Count 3.81 M/mm3 (3.65-5.03); Red Cell Distribution Width 19.4 % (13.2-15.2)
[2018-09-09 07:14] LABS: Platelet Count 89 K/mm3 (140-440)
[2018-09-09] MEDS ORDERED: ROCEPHIN/NS 1 GM/50 ML 1 GM/50 ML BAG IV ONE (07:31)
[2018-09-09 07:33] LABS: BUN/Creatinine Ratio 12; Blood Urea Nitrogen 13 mg/dL (7-17); Calcium 8.4 mg/dL (8.4-10.2); Hemolysis Index 6
--- NOTE | 2018-09-09 07:59 | Emergency Department Report ---
Blank Doc - Documentation Documentation: Patient is a 53-year-old female that has been in the emergency room for a psyc hiatric hold that was found to have hypotensive for the second time since being in the ER. Patient's blood pressure extremely low and is currently receiving a normal saline bolus. Patient's blood pressure was 73/60 and after a liter increased to 82/60. Patient will be admitted to the hospitalist service. Another set of labs done. Labs show hypokalemia. Previous UA was done and is positive for UTI. Antibiotic started. Had chest x-ray done on arrival and is negative. 08:15 Hospitalist consulted for admission. Hospitalist to admit patient. Hospitalist to assume care of patient. Bridge orders place.
[2018-09-09 08:06] LABS: Anisocytosis 1+; Basophils % (Manual) 0 % (0.0-1.8); Total Cells Counted 100
[2018-09-09 08:07] LABS: Ovalocytes Few; Platelet Estimate Consistent w Auto; Poikilocytosis 1+; Tear Drop Cells Few
[2018-09-09] MEDS: KCL 10MEQ/100ML 10 MEQ/100 ML BAG IV SCH ×2 (08:58→09:49)
--- NOTE | 2018-09-09 11:03 | History and Physical Report ---
History of Present Illness Date of examination: 09/09/18 Date of admission: 09/09/18 Chief complaint: hypotension History of present illness: Patient is a 53-year-old female that has been in the emergency room for a psychiatric hold that was found to have hypotensive since last night. Patient's blood pressure extremely low and is currently receiving a normal saline bolus. Patient's blood pressure was 73/60 and after a liter increased to 82/60. Patient's Labs this morning show hypokalemia, UA positive for UTI. Antibiotic started. Had chest x-ray done on arrival and is negative. Patient unable to provide any further details and a poor historian. Getting treated in the ER for Bipolar DO, MDD with psychosis. She will be admitted for further evaluation and management. Past History Past Medical History: HIV/AIDS Past Surgical History: No surgical history Social history: other (no available) Family history: other (not known ) Medications and Allergies Allergies Allergy/AdvReac Type Severity Reaction Status Date / Time No Known Allergies Allergy Unverified 01/12/18 23:56 Home Medications Medication Instructions Recorded Confirmed Last Taken Type Lisinopril/Hydrochlorothiazide 1 tab PO QDAY #30 tablet 01/21/18 09/04/18 Unknown Rx [Zestoretic 20-12.5 mg] Sertraline HCl [Zoloft] 100 mg PO QAM #30 tablet 01/21/18 09/04/18 Unknown Rx Venlafaxine HCl 75 mg PO QAM #30 tablet 01/21/18 09/04/18 Unknown Rx hydrOXYzine pamoate [Hydroxyzine 25 mg PO TID #90 capsule 01/21/18 09/04/18 Unknown Rx Pamoate] Quetiapine Fumarate [SEROquel] 300 mg PO QHS 09/04/18 09/04/18 Unknown History Active Meds: Active Medications Buspirone HCl (Buspar) 10 mg PO BID [facility]ENE Last Admin: 09/08/18 23:22 Dose: 10 mg Documented by: Haloperidol Lactate (Haldol) 5 mg IM Q6HR PRN PRN Reason: Agitation Last Admin: 09/04/18 15:29 Dose: 5 mg Documented by: Lorazepam (Ativan) 2 mg IM Q4HR PRN PRN Reason: Agitation Last Admin: 09/05/18 02:05 Dose: 2 mg Documented by: Quetiapine Fumarate (Seroquel) 200 mg PO QHS [facility] Last Admin: 09/08/18 23:23 Dose: 200 mg Documented by: Review of Systems ROS unobtainable: due to mental status Exam - Constitutional Vitals: Temp Pulse Resp BP Pulse Ox 99.1 F 77 24 110/68 100 09/09/18 07:47 09/09/18 07:47 09/09/18 07:52 09/09/18 10:47 09/09/18 07:52 General appearance: Present: no acute distress - EENT Eyes: Present: PERRL ENT: hearing intact, clear oral mucosa - Neck Neck: Present: supple, normal ROM - Respiratory Respiratory effort: normal Respiratory: bilateral: CTA - Cardiovascular Heart Sounds: Present: S1 & S2. Absent: rub, click - Extremities Extremities: pulses symmetrical, No edema Peripheral Pulses: within normal limits - Abdominal General gastrointestinal: Present: soft, non-tender, non-distended, normal bowel sounds - Integumentary Integumentary: Present: clear, warm, dry - Musculoskeletal Musculoskeletal: gait normal, strength equal bilaterally - Psychiatric Psychiatric: no appropriate mood/affect, no intact judgment & insight - Neurologic Neurologic: CNII-XII intact, moves all extremities Results - Labs CBC & Chem 7: 09/09/18 07:04 09/09/18 16:33 Labs: Abnormal lab results 09/09/18 09/09/18 Range/Units 07:04 07:04 WBC 3.1 L (4.5-11.0) K/mm3 RDW 19.4 H (13.2-15.2) % Plt Count 89 L (140-440) K/mm3 Monocytes % (Manual) 10.0 H (0.0-7.3) % Lymphocytes # (Manual) 0.9 L (1.2-5.4) K/mm3 Potassium 2.8 L* (3.6-5.0) mmol/L Glucose 114 H (65-100) mg/dL - Imaging and Cardiology Chest x-ray: report reviewed Assessment and Plan Hypotension, likely from dehydration UTI h/o HIV by documentation severe hypokalemia Bipolar DO, MDD with psychosis - Admit to [facility] - cont her psych meds - start on abx, regular diet, iv fluid, monitor BP - blood cx, Urine cx - DVT Px
[2018-09-09] MEDS: BUSPAR PO SCH ×2 (11:30→23:03)
[2018-09-09] MEDS ORDERED: K-DUR PO ONE (15:49)
--- NOTE | 2018-09-09 16:10 | Progress Note ---
Subjective - Reason for Consult Consult date: 09/09/18 Reason for consult: Psychiatry Follow-up - Chief Complaint Chief complaint: "Josh" Patient is a 53 years old white female who presented to the ER for chest pain. Prior to the patient being discharged she endorsed SI's per the noted. Today the patient is calm and cooperative during the assessment. She stated that she feel a "little better." The patient is more lucid and organized today, then previous days. She denies SI/HI's and AVH's. She denies any side effects of her medications. Mental Status Exam - Vital signs Last Vital Signs Temp 98.0 F 09/09/18 15:24 Pulse 76 09/09/18 15:24 Resp 22 09/09/18 15:24 BP 115/60 09/09/18 15:24 Pulse Ox 90 09/09/18 15:24 - Exam Narrative exam: MSE: Appearance: calm, cooperative Behavior: regular eye contact Speech: regular rate and tone Mood: "a little better" Affect: congruent to mood Thought Process: circumstantial Thought Content: denies SI/HI's and AVH's Motor Activity: sitting up in the bed Cognition: A/O x3 Insight: variable to fair Judgment: variable to fair Assessment and Plan Impression: Unspecified Mood DO with psy features. Unspecified Anxiety DO. Today the patient is calm and cooperative during the assessment. UDS is negative. DDx: Bipolar DO, MDD with psychosis Recommendation/Plan: Reevaluate 1013 in 24 hours to determine if it need to be extended (expires in 24 hours). Continue Seroquel 200 mg PO HS for mood/psychosis and Buspar 7.5 mg PO BID for anxiety. Discussed possible metabolic side effects of Seroquel with the patient. Dispo: If the patient's 1013 is not extended, she can follow up with [facility] for outpatient psy services. Will staff with Dr Stephenson.
[2018-09-10] MEDS: BUSPAR PO SCH ×2 (10:21→23:06)
[2018-09-10] MEDS: K-DUR PO SCH (10:21)
--- NOTE | 2018-09-10 12:19 | Progress Note ---
Subjective - Reason for Consult Consult date: 09/10/18 Reason for consult: Psychiatric Follow-up Evaluation - Chief Complaint Chief complaint: "I feel better" Patient is a 53 years old white female who presented to the ER for chest pain. Prior to the patient being discharged she endorsed SI's per the noted. Today the patient is calm and cooperative during the assessment. She rates depression 7/10, with 10 being the worse. Patient thoughts are more organized. She denies SI/HI's, VH's, and delusions. She endorses AH's. She denies any side effects of her medications. Mental Status Exam - Vital signs Last Vital Signs Temp 97.7 F 09/10/18 06:20 Pulse 84 09/10/18 06:20 Resp 24 09/10/18 06:20 BP 97/55 09/10/18 06:20 Pulse Ox 91 09/10/18 06:20 - Exam Narrative exam: Mental Status Exam: Appearance: calm, cooperative Behavior: regular eye contact Speech: regular rate and tone Mood: "I feel better" Affect: congruent to mood Thought Process: circumstantial, tangential Thought Content: denies SI/HI's, AVH's, and delusions Motor Activity: sitting up in the bed Cognition: A/O x3 Insight: variable to fair Judgment: variable to fair Assessment and Plan Impression: Unspecified Mood DO with psy features. Unspecified Anxiety DO. Today the patient is cooperative but anxious during the assessment. She endorses labile mood and auditory hallucinations. UDS is negative. DDx: Bipolar DO, MDD with psychosis Recommendation/Plan: 1. Will reassess in 24 hours. 2. Continue Seroquel 200 mg PO HS for mood/psychosis and Buspar 7.5 mg PO BID for anxiety. Discussed possible metabolic side effects of Seroquel with the patient. Disposition: Will reassess in 24 hours. Once symptoms improve patient will follow up with [facility] for outpatient psychiatric services. Will staff with Dr Stephenson.
--- NOTE | 2018-09-10 15:30 | Progress Note ---
Assessment and Plan Hypotension, likely from dehydration, resolved UTI, on abx, Cx negative h/o HIV by documentation severe hypokalemia, repleted Bipolar DO, MDD with psychosis - monitor at [facility] - cont her psych meds, lab for HIV pending -cont on abx, regular diet, iv fluid, monitor BP - negative blood cx, negative Urine cx - Continue Seroquel 200 mg PO HS for mood/psychosis and Buspar 7.5 mg PO BID for anxiety - DVT Px Disposition: wait for psych clearance Physical exam: General appearance: Present: no acute distress - EENT Eyes: Present: PERRL ENT: hearing intact, clear oral mucosa - Neck Neck: Present: supple, normal ROM - Respiratory Respiratory effort: normal Respiratory: bilateral: CTA - Cardiovascular Heart Sounds: Present: S1 & S2. Absent: rub, click - Extremities Extremities: pulses symmetrical, No edema Peripheral Pulses: within normal limits - Abdominal General gastrointestinal: Present: soft, non-tender, non-distended, normal bowel sounds - Integumentary Integumentary: Present: clear, warm, dry - Musculoskeletal Musculoskeletal: gait normal, strength equal bilaterally - Psychiatric Psychiatric: appropriate mood/affect, intact judgment & insight - Neurologic Neurologic: CNII-XII intact, moves all extremities Subjective Date of service: 09/10/18 Interval history: Patient seen and examined. Medical records and medication list reviewed. No acute event overnight noted by the RN. Patient denies any chest pain or difficulty breathing. Patient is tolerating diet. Discussed plan of care at bedside with patient. Denies any suicidal ideation, request for placement Objective - Constitutional Vitals: Vital Signs - 12hr 09/10/18 09/10/18 06:20 12:34 Temperature 97.7 F 98.4 F Pulse Rate 84 Respiratory 24 18 Rate Blood Pressure 97/55 109/63 O2 Sat by Pulse 91 Oximetry - Labs CBC & Chem 7: 09/09/18 07:04 09/09/18 16:33 Labs: Abnormal lab results 09/09/18 Range/Units 16:33 Potassium 3.5 L D (3.6-5.0) mmol/L
[2018-09-10] MEDS: NACL 0.9% 1000 ML 1,000 ML IV SCH (17:38)
[2018-09-10] MEDS: LEVAQUIN PO SCH (17:38)
[2018-09-11] MEDS: NACL 0.9% 1000 ML 1,000 ML IV SCH ×3 (04:11→22:51)
[2018-09-11] MEDS: BUSPAR PO SCH ×2 (11:00→21:20)
[2018-09-11] MEDS: K-DUR PO SCH (11:00)
--- NOTE | 2018-09-11 11:43 | Progress Note ---
Subjective - Reason for Consult Consult date: 09/11/18 Reason for consult: Psychiatric Follow-up Evaluation - Chief Complaint Chief complaint: "I feel okay" Patient is a 53 years old white female who presented to the ER for chest pain. Today the patient is cooperative but anxious during the assessment. She rates depression 6/10, with 10 being the worse. Thoughts continue to be tangential. She denies SI/HI's, VH's, and delusions. She endorses AH's. She denies any side effects of her medications. Mental Status Exam - Vital signs Last Vital Signs Temp 97.5 F L 09/10/18 23:11 Pulse 72 09/10/18 23:11 Resp 18 09/11/18 08:54 BP 135/78 09/10/18 23:11 Pulse Ox 94 09/11/18 08:54 - Exam Narrative exam: Mental Status Exam Appearance: anxious, cooperative Behavior: regular eye contact Speech: regular rate and tone Mood: "I feel okay" Affect: congruent to mood Thought Process: circumstantial, tangential Thought Content: denies SI/HI's, VH's, and delusions;+ AH's Motor Activity: sitting up in the bed Cognition: A/O x3 Insight: variable to fair Judgment: variable to fair Assessment and Plan Impression: Unspecified Mood DO with psy features. Unspecified Anxiety DO. Today the patient is cooperative but anxious during the assessment. She endorses labile mood and auditory hallucinations. UDS is negative. DDx: Bipolar DO, MDD with psychosis Recommendation/Plan: 1. Will reassess in 24 hours. 2. Increase Seroquel 300 mg PO HS for mood/psychosis and Buspar 10 mg PO BID for anxiety. Discussed possible metabolic side effects of Seroquel with the patient. Disposition: Will reassess in 24 hours. Once symptoms improve patient will follow up with [facility] for outpatient psychiatric services. Will staff with Dr Stephenson.
--- NOTE | 2018-09-11 12:16 | Progress Note ---
Assessment and Plan Hypotension, likely from dehydration, resolved UTI, on abx, Cx negative h/o HIV by documentation severe hypokalemia, repleted Bipolar DO, MDD with psychosis - monitor at [facility] - cont her psych meds, lab for HIV pending -cont on abx, regular diet, iv fluid, monitor BP - negative blood cx, negative Urine cx - Continue Seroquel 300 mg PO HS for mood/psychosis and Buspar 10 mg PO BID for anxiety - DVT Px Disposition: medically stable, wait for psych clearance Physical exam: General appearance: Present: no acute distress - EENT Eyes: Present: PERRL ENT: hearing intact, clear oral mucosa - Neck Neck: Present: supple, normal ROM - Respiratory Respiratory effort: normal Respiratory: bilateral: CTA - Cardiovascular Heart Sounds: Present: S1 & S2. Absent: rub, click - Extremities Extremities: pulses symmetrical, No edema Peripheral Pulses: within normal limits - Abdominal General gastrointestinal: Present: soft, non-tender, non-distended, normal bowel sounds - Integumentary Integumentary: Present: clear, warm, dry - Musculoskeletal Musculoskeletal: gait normal, strength equal bilaterally - Psychiatric Psychiatric: appropriate mood/affect, intact judgment & insight - Neurologic Neurologic: CNII-XII intact, moves all extremities Subjective Date of service: 09/11/18 Interval history: Patient seen and examined. Medical records and medication list reviewed. No acute event overnight noted by the RN. Patient denies any chest pain or difficulty breathing. Patient is tolerating diet. Discussed plan of care at bedside with patient. Denies any suicidal ideation, request for placement for [facility] Objective - Constitutional Vitals: Vital Signs - 12hr 09/11/18 09/11/18 08:37 08:54 Respiratory 18 Rate O2 Sat by Pulse 95 94 Oximetry - Labs CBC & Chem 7: 09/09/18 07:04 09/09/18 16:33 Labs: Abnormal lab results 09/10/18 Range/Units 21:59 POC Glucose 114 H (70-105)
[2018-09-11] MEDS: ATIVAN IM PRN (21:21)
[2018-09-11] MEDS: LEVAQUIN PO SCH (22:52)
[2018-09-12] MEDS: K-DUR PO SCH (09:55)
[2018-09-12] MEDS: BUSPAR PO SCH ×2 (09:55→21:35)
[2018-09-12] MEDS: NACL 0.9% 1000 ML 1,000 ML IV SCH (09:56)
--- NOTE | 2018-09-12 11:26 | Progress Note ---
Subjective - Reason for Consult Consult date: 09/12/18 Reason for consult: Psychiatry Follow-up - Chief Complaint Chief complaint: "I feel okay" Patient is a 53 years old white female who presented to the ER for chest pain. Today the patient is calm and cooperative during the assessment. She that the voices are "gone." The patient is much more lucid and organized. She denies Si/HI's and AVH's. She denies any side effects of her medications. Mental Status Exam - Vital signs Last Vital Signs Temp 98.0 F 09/12/18 05:59 Pulse 81 09/12/18 05:59 Resp 20 09/12/18 05:59 BP 129/80 09/12/18 05:59 Pulse Ox 98 09/12/18 08:51 - Exam Narrative exam: MSE: Appearance: calm, cooperative Behavior: regular eye contact Speech: regular rate and tone Mood: "okay" Affect: congruent to mood Thought Process: more organized Thought Content: denies SI/HI's and AVH's Motor Activity: sitting up in the bed Cognition: A/O x3 Insight: fair Judgment: fair Assessment and Plan Impression: Unspecified Mood DO with psy features. Unspecified Anxiety DO. Today the patient is calm and cooperative during the assessment. UDS is negative. The patient's psychosis has resolved. DDx: Bipolar DO, MDD with psychosis Recommendation/Plan: The patient's 1013 09/10/2018 and will not be extended. She does not meet criteria for a 1013. Continue Seroquel 300 mg PO HS for mood/psychosis and Buspar 10 mg PO BID for anxiety. Discussed possible metabolic side effects of Seroquel with the patient. Dispo: The patient can follow up with [facility] for outpatient psy services. Will staff with Dr Sana Gracia.
--- NOTE | 2018-09-12 15:48 | Discharge Summary ---
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 Patient's blood pressure extremely low and given normal saline bolus in the ER. Patient's blood pressure was 73/60 and after a liter bolus increased to 82/60. Patient's Labs showed hypokalemia, UA positive for UTI. Antibiotic started. Had chest x-ray done on arrival and is negative. Patient unable to provide any further details and a poor historian. Getting treated in the ER for Bipolar DO, MDD with psychosis. She was admitted for further evaluation and management of hypotension and UTI. Discharge diagnosis and management: Hypotension, likely from dehydration, resolved with iv fluid UTI, treated with abx, Cx negative h/o HIV by documentation, Lab ordered but stayed pending, outpt followup severe hypokalemia, likely from poor oral intake, repleted Bipolar DO, MDD with psychosis, will continue Seroquel 300 mg PO HS for mood/psychosis and Buspar 10 mg PO BID for anxiety, will f/u psych outpt h/o COPD, no exertion, appears stable Disposition: Return to [facility] in stable condition after psych clearance. Physical exam: General appearance: Present: no acute distress - EENT Eyes: Present: PERRL ENT: hearing intact, clear oral mucosa - Neck Neck: Present: supple, normal ROM - Respiratory Respiratory effort: normal Respiratory: bilateral: CTA - Cardiovascular Heart Sounds: Present: S1 & S2. Absent: rub, click - Extremities Extremities: pulses symmetrical, No edema Peripheral Pulses: within normal limits - Abdominal General gastrointestinal: Present: soft, non-tender, non-distended, normal bowel sounds - Integumentary Integumentary: Present: clear, warm, dry - Musculoskeletal Musculoskeletal: gait normal, strength equal bilaterally - Psychiatric Psychiatric: appropriate mood/affect, intact judgment & insight - Neurologic Neurologic: CNII-XII intact, moves all extremities Disposition: DC-01 TO HOME OR SELFCARE Time spent for discharge: 34 minutes Core Measure Documentation - Palliative Care Palliative Care/ Comfort Measures: Not Applicable - Core Measures Any of the following diagnoses?: none Exam - Constitutional Vitals: Temp Pulse Resp BP Pulse Ox 97.9 F 70 18 135/77 88 09/12/18 11:51 09/12/18 11:51 09/12/18 11:51 09/12/18 11:51 09/12/18 11:51 Plan Activity: advance as tolerated Weight Bearing Status: Weight Bear as Tolerated Diet: low fat, low salt Additional Instructions: Outpt follow up for possible stress test Follow up with: FREDI NUNEZ MD [Primary Care Provider] - 7 Days Prescriptions: QUEtiapine [SEROquel] 300 mg PO QHS #30 tablet levoFLOXacin [Levaquin TAB] 500 mg PO Q24H #2 tablet
[2018-09-12] MEDS: LEVAQUIN PO SCH (17:01)
[2018-09-13] MEDS: NACL 0.9% 1000 ML 1,000 ML IV SCH (00:03)
--- NOTE | 2018-09-13 07:55 | Event Note ---
Date: 09/13/18 discharge was hold yesterday for pending placement.
--- NOTE | 2018-09-13 08:18 | Progress Note ---
Assessment and Plan Hypotension, likely from dehydration, resolved UTI, on abx, Cx negative h/o HIV by documentation severe hypokalemia, repleted Bipolar DO, MDD with psychosis - monitor at [facility] - cont her psych meds, lab for HIV pending -cont on abx, regular diet, iv fluid, monitor BP - negative blood cx, negative Urine cx - Continue Seroquel 300 mg PO HS for mood/psychosis and Buspar 10 mg PO BID for anxiety - DVT Px Disposition: medically stable, cleared by psych, pending placement Physical exam: General appearance: Present: no acute distress - EENT Eyes: Present: PERRL ENT: hearing intact, clear oral mucosa - Neck Neck: Present: supple, normal ROM - Respiratory Respiratory effort: normal Respiratory: bilateral: CTA - Cardiovascular Heart Sounds: Present: S1 & S2. Absent: rub, click - Extremities Extremities: pulses symmetrical, No edema Peripheral Pulses: within normal limits - Abdominal General gastrointestinal: Present: soft, non-tender, non-distended, normal bowel sounds - Integumentary Integumentary: Present: clear, warm, dry - Musculoskeletal Musculoskeletal: gait normal, strength equal bilaterally - Psychiatric Psychiatric: appropriate mood/affect, intact judgment & insight - Neurologic Neurologic: CNII-XII intact, moves all extremities Subjective Date of service: 09/13/18 Interval history: Patient seen and examined. Medical records and medication list reviewed. No acute event overnight noted by the RN. Patient denies any chest pain or difficulty breathing. Patient is tolerating diet. Discussed plan of care at bedside with patient. Denies any suicidal ideation, request for placement for [facility] Objective - Constitutional Vitals: Vital Signs - 12hr 09/12/18 09/12/18 21:20 22:41 Temperature 98.4 F Pulse Rate 92 H Respiratory 20 Rate Blood Pressure 138/88 O2 Sat by Pulse 72 L 91 Oximetry - Labs CBC & Chem 7: 09/09/18 07:04 09/09/18 16:33
--- NOTE | 2018-09-13 08:19 | Progress Note ---
Assessment and Plan Hypotension, likely from dehydration, resolved UTI, on abx, Cx negative h/o HIV by documentation severe hypokalemia, repleted Bipolar DO, MDD with psychosis - monitor at [facility] - cont her psych meds, lab for HIV pending -cont on abx, regular diet, iv fluid, monitor BP - negative blood cx, negative Urine cx - Continue Seroquel 300 mg PO HS for mood/psychosis and Buspar 10 mg PO BID for anxiety - DVT Px Disposition: medically stable, cleared by psych, pending placement Physical exam: General appearance: Present: no acute distress - EENT Eyes: Present: PERRL ENT: hearing intact, clear oral mucosa - Neck Neck: Present: supple, normal ROM - Respiratory Respiratory effort: normal Respiratory: bilateral: CTA - Cardiovascular Heart Sounds: Present: S1 & S2. Absent: rub, click - Extremities Extremities: pulses symmetrical, No edema Peripheral Pulses: within normal limits - Abdominal General gastrointestinal: Present: soft, non-tender, non-distended, normal bowel sounds - Integumentary Integumentary: Present: clear, warm, dry - Musculoskeletal Musculoskeletal: gait normal, strength equal bilaterally - Psychiatric Psychiatric: appropriate mood/affect, intact judgment & insight - Neurologic Neurologic: CNII-XII intact, moves all extremities Subjective Date of service: 09/12/18 Interval history: Patient seen and examined. Medical records and medication list reviewed. No acute event overnight noted by the RN. Patient denies any chest pain or difficulty breathing. Patient is tolerating diet. Discussed plan of care at bedside with patient. Denies any suicidal ideation, request for placement for [facility] Objective - Constitutional Vitals: Vital Signs - 12hr 09/12/18 09/12/18 21:20 22:41 Temperature 98.4 F Pulse Rate 92 H Respiratory 20 Rate Blood Pressure 138/88 O2 Sat by Pulse 72 L 91 Oximetry - Labs CBC & Chem 7: 09/09/18 07:04 09/09/18 16:33
[2018-09-13] MEDS: K-DUR PO SCH (10:52)
[2018-09-13] MEDS: BUSPAR PO SCH (10:53)
[2018-09-13 13:13] VITALS: BP 136/78
[2018-09-16 08:35] LABS: HIV-1 Antibody Differentiation SEE SCANNED RESULTS; HIV-2 Antibody Differentiation SEE SCANNED RESULTS
== END 2018-09-13 15:10 | disposition home or self-care (01) | DRG 977 ==
LOC: ED 07:47 → EEVIPCON 07:47 → 3A 09-09 08:18
PROVIDERS: ADMIT Internal Medicine; ATTEND Internal Medicine
DX: B20 Human immunodeficiency virus [HIV] disease (principal); N39.0 Urinary tract infection, site not specified; E86.0 Dehydration; I95.9 Hypotension, unspecified; E87.6 Hypokalemia; F31.9 Bipolar disorder, unspecified; I10 Essential (primary) hypertension; R07.9 Chest pain, unspecified; F41.9 Anxiety disorder, unspecified; E11.9 Type 2 diabetes mellitus without complications; J44.9 Chronic obstructive pulmonary disease, unspecified; Z99.81 Dependence on supplemental oxygen; Z90.710 Acquired absence of both cervix and uterus; Z90.49 Acquired absence of other specified parts of digestive tract; Z79.84 Long term (current) use of oral hypoglycemic drugs
CPT/HCPCS: 36415; 71045; 80048; 80307; 80320; 81001; 82140; 82550; 82962; 84132; 84484; 85007; 85025; 85379; 85610; 85730; 86689; 87040; 87086; 87806; 93005; 93010; 94760; 96365; 96366; 96367; 96372; 96375; G0378; G0480; J0696; J1630; J2060; J3480; J7030; J7040; Q0177

== ENCOUNTER 2018-09-14 23:17 | Inpatient (IN) | payer MEDICARE, OTHER ==
[2018-09-14] MEDS ORDERED: ZOFRAN IV ONE (23:56)
[2018-09-14] MEDS ORDERED: SUBLIMAZE IV ONE (23:56)
[2018-09-14] MEDS ORDERED: NITRO-BID 2% TP ONE (23:56)
[2018-09-14] MEDS ORDERED: ASPIRIN PO ONE (23:57)
--- NOTE | 2018-09-15 00:04 | Emergency Department Report ---
HPI - General Chief Complaint: Dyspnea/Respdistress Time Seen by Provider: 09/14/18 23:44 - HPI HPI: Room 1 The patient is a 53-year-old female presenting with a chief complaint of chest heaviness and shortness of breath. The patient states she has a history of COPD and is supposedly on 5 L of O2 at home. The patient states 48 hours ago her home O2 was taken away from her (details uncertain by the patient). The patient states today she's had constant chest heaviness associated with shortness of breath. Patient denies nausea/vomiting or diaphoresis. Patient states she has noticed bilateral lower extremity edema since yesterday. Patient denies history of cough. Patient currently gives her chest heaviness score of 5-6/10. The patient states she is uncertain if she's ever had a cardiac catheterization Location: [See above] Duration: [See above] Quality: Heaviness Severity: 5-6/10 Modifying factors: [see above] Context: [see above] Mode of transportation: [not driving] ED Past Medical Hx - Past Medical History Hx Hypertension: Yes Hx Diabetes: Yes Hx COPD: Yes (3L O2 at home) Hx HIV: Yes Additional medical history: Hep c - Surgical History Hx Cholecystectomy: Yes Additional Surgical History: Hysterectomy - Family History Family history: no significant - Social History Smoking Status: Current Every Day Smoker Substance Use Type: None (denies illicit drug use), Alcohol (occasional) - Medications Home Medications: Home Medications Medication Instructions Recorded Confirmed Last Taken Type QUEtiapine [SEROquel] 300 mg PO QHS #30 tablet 09/12/18 Unknown Rx busPIRone [Buspar] 10 mg PO BID #60 tablet 09/12/18 Unknown Rx levoFLOXacin [Levaquin TAB] 500 mg PO Q24H #2 tablet 09/12/18 Unknown Rx ED Review of Systems ROS: Stated complaint: GISELLA Other details as noted in HPI Constitutional: denies: diaphoresis Eyes: denies: eye pain ENT: denies: throat pain Respiratory: shortness of breath. denies: cough Cardiovascular: chest pain Endocrine: no symptoms reported Gastrointestinal: denies: nausea, vomiting Genitourinary: denies: dysuria Musculoskeletal: denies: back pain Neurological: denies: as per HPI, headache Physical Exam - Physical Exam Vital Signs: Vital Signs 09/14/18 09/14/18 23:44 23:47 Temperature 97 F L Pulse Rate 119 H Respiratory 20 20 Rate Blood Pressure 132/86 [Left] O2 Sat by Pulse 89 89 Oximetry Physical Exam: GENERAL: The patient is well-developed well-nourished female lying on stretcher not appearing to be in acute distress. [] HEENT: Normocephalic. Atraumatic. Extraocular motions are intact. Patient has moist mucous membranes. NECK: Supple. Trachea midline CHEST/LUNGS: Clear to auscultation. There is no respiratory distress noted. HEART/CARDIOVASCULAR: Regular. There is tachycardia. There is no gallop rub or murmur. ABDOMEN: Abdomen is soft, nontender. Patient has normal bowel sounds. There is no abdominal distention. SKIN: There is no rash. There is 1+ bilateral lower extremity pitting edema. There is no diaphoresis. NEURO: The patient is awake, alert, and oriented. The patient is cooperative. The patient has normal speech MUSCULOSKELETAL: There is no evidence of acute injury. ED Course Vital Signs 09/14/18 09/14/18 23:44 23:47 Temperature 97 F L Pulse Rate 119 H Respiratory 20 20 Rate Blood Pressure 132/86 [Left] O2 Sat by Pulse 89 89 Oximetry ED Medical Decision Making - Lab Data Result diagrams: 09/15/18 00:08 09/15/18 00:08 Laboratory Tests 09/15/18 09/15/18 09/15/18 00:08 00:08 00:08 WBC 3.4 L RBC 3.78 Hgb 10.9 Hct 33.3 MCV 88 MCH 29 MCHC 33 RDW 20.4 H Plt Count 116 L Lymph % (Auto) 21.3 [place] % (Auto) 12.9 H Eos % (Auto) 0.8 Baso % (Auto) 0.9 Lymph # 0.7 L [place] # 0.4 Eos # 0.0 Baso # 0.0 Seg Neutrophils % 64.1 Seg Neutrophils # 2.2 PT 16.5 H INR 1.25 H D-Dimer 147.32 Sodium 139 Potassium 3.2 L Chloride 106.2 Carbon Dioxide 17 L Anion Gap 19 BUN 5 L Creatinine 0.5 L Estimated GFR > 60 BUN/Creatinine Ratio 10 Glucose 123 H Calcium 9.0 Total Bilirubin 1.20 AST 55 H ALT 22 Alkaline Phosphatase 115 Total Creatine Kinase 91 CK-MB (CK-2) 1.9 CK-MB (CK-2) Rel Index 2.0 Troponin T < 0.010 NT-Pro-B Natriuret Pep Total Protein 6.7 Albumin 3.5 L Albumin/Globulin Ratio 1.1 09/15/18 01:11 WBC RBC Hgb Hct MCV MCH MCHC RDW Plt Count Lymph % (Auto) [place] % (Auto) Eos % (Auto) Baso % (Auto) Lymph # [place] # Eos # Baso # Seg Neutrophils % Seg Neutrophils # PT INR D-Dimer Sodium Potassium Chloride Carbon Dioxide Anion Gap BUN Creatinine Estimated GFR BUN/Creatinine Ratio Glucose Calcium Total Bilirubin AST ALT Alkaline Phosphatase Total Creatine Kinase CK-MB (CK-2) CK-MB (CK-2) Rel Index Troponin T NT-Pro-B Natriuret Pep 257.6 Total Protein Albumin Albumin/Globulin Ratio - EKG Data -: EKG Interpreted by Me EKG shows normal: sinus rhythm Rate: tachycardia (107 bpm) - EKG Data When compared to previous EKG there are: previous EKG unavailable Interpretation: other (no definite ischemic changes seen) - Radiology Data Radiology results: image reviewed (chest x-ray) interpreted by me: Chest [id number] breast shadows. Right lower lobe atelectasis. No pneumothorax - Differential Diagnosis ACS, PE, CHF, pericarditis, GERD Critical care attestation.: If time is entered above; I have spent that time in minutes in the direct care of this critically ill patient, excluding procedure time. ED Disposition Clinical Impression: Chest pain, COPD (chronic obstructive pulmonary disease), Shortness of breath, Hypoxia Disposition: OP ADMIT IP TO THIS HOSP Is pt being admited?: Yes Does the pt Need Aspirin: Yes Condition: Fair Instructions: Chest Pain (ED), Chronic Obstructive Pulmonary Disease (ED) Referrals: PRIMARY CARE, [Primary Care Provider] - 3-5 Days Time of Disposition: 01:36 (hospitalist paged (Dr. Alta Campoverde))
[2018-09-15 00:22] LABS: Basophils % (Auto) 0.9 % (0.0-1.8); Eosinophils % (Auto) 0.8 % (0.0-4.3); Hematocrit 33.3 % (30.3-42.9); Hemoglobin 10.9 gm/dl (10.1-14.3); Lymphocytes # (Auto) 0.7 K/mm3 (1.2-5.4); Lymphocytes % (Auto) 21.3 % (13.4-35.0); Mean Corpuscular HGB Conc 33 % (30-34); Mean Corpuscular Volume 88 fl (79-97); Monocytes # (Auto) 0.4 K/mm3 (0.0-0.8); Monocytes % (Auto) 12.9 % (0.0-7.3); Platelet Count 116 K/mm3 (140-440); Red Blood Count 3.78 M/mm3 (3.65-5.03)
[2018-09-15 00:35] LABS: INR 1.25 (0.87-1.13)
[2018-09-15 00:36] LABS: Red Cell Distribution Width 20.4 % (13.2-15.2)
[2018-09-15 01:09] LABS: Creatine Kinase MB 1.9 ng/mL (0.0-4.0)
[2018-09-15 01:10] LABS: Alanine Aminotransferase 22 units/L (7-56); Albumin 3.5 g/dL (3.9-5); BUN/Creatinine Ratio 10; Blood Urea Nitrogen 5 mg/dL (7-17); Hemolysis Index 9
--- NOTE | 2018-09-15 01:10 | XRay Report ---
PROCEDURE: XR CHEST 1V AP TECHNIQUE: Chest radiograph single view. HISTORY: GISELLA COMPARISONS: 09/03/2018 . FINDINGS: Heart: Normal. Mediastinum/Vessels: Normal. Lungs/Pleural space: Lungs are expanded. There are no infiltrates. There are mild fibrotic changes. There are no pleural effusions or pneumothoraces.. Bony thorax: No acute osseous abnormality. Life support devices: None. IMPRESSION: No acute cardiopulmonary abnormality. This document is electronically signed by Abhishek Bright MD., September 15 2018 01:08:38 AM ET
[2018-09-15] MEDS ORDERED: K-DUR PO ONE (01:11)
--- NOTE | 2018-09-15 02:19 | History and Physical Report ---
<GRECIA ROSADO - Last Filed: 09/15/18 03:43> History of Present Illness Date of examination: 09/15/18 Date of admission: 09/15/2018 Chief complaint: Chest pain History of present illness: Patient is a 53-year-old female with past medical history of CAD s/p stent, hypertension, HIV infection (viral load undetectable), hepatitis C, cigarette smoking disorders, COPD home O2 dependent who was brought to the ER by EMS with complaints of chest pain and shortness of breath just prior to arrival. Patient states that she had moved to another location and the company that supplies her oxygen removed her from their list. Pt states that she has been having chest pain on and off when she started to run out of Oxygen. Pt states that she had been out of oxygen for 30 hrs, she has been having chest pain and SOB, she was gasping for air and unable to caught her breath, she decided to call EMS. Pt states that the pain is a pressure-like pain located in the mid sternal area with no radiation, the pain is associated with shortness of breath, tingling feeling in arms and legs, she denies cough, denies congestion, denies nausea, denies vomiting, denied diaphoresis, she denies fever or chills. Patient was evaluated in the ER, she had no STEMI criteria, CE was negative, O2 sat is stable but decrease with cough and exertion, she is admitted for further evaluation of her chest pain. Past History Past Medical History: hepatitis, HIV/AIDS, hypertension Past Surgical History: hysterectomy Social history: lives with family Family history: no significant family history Medications and Allergies Allergies Allergy/AdvReac Type Severity Reaction Status Date / Time No Known Allergies Allergy Unverified 01/12/18 23:56 Home Medications Medication Instructions Recorded Confirmed Last Taken Type QUEtiapine [SEROquel] 300 mg PO QHS #30 tablet 09/12/18 09/15/18 Unknown Rx levoFLOXacin [Levaquin TAB] 500 mg PO Q24H #2 tablet 09/12/18 09/15/18 Unknown Rx Citalopram [celeXA] 20 mg PO QDAY 09/15/18 09/15/18 Unknown History Venlafaxine HCl [Venlafaxin ER] 75 mg PO QDAY 09/15/18 09/15/18 Unknown History busPIRone [Buspar] 10 mg PO BID 09/15/18 09/15/18 Unknown History Exam - Constitutional Vitals: Temp Pulse Resp BP Pulse Ox 97 F L 109 H 20 118/68 89 09/14/18 23:44 09/15/18 00:33 09/15/18 00:16 09/15/18 00:33 09/14/18 23:47 General appearance: Present: no acute distress - EENT Eyes: Present: EOM intact ENT: hearing intact - Neck Neck: Present: normal ROM - Respiratory Respiratory effort: normal Respiratory: bilateral: CTA - Cardiovascular Rhythm: regular - Extremities Extremities: no ischemia Peripheral Pulses: within normal limits - Abdominal General gastrointestinal: Present: deferred Female genitourinary: Present: deferred - Rectal Rectal Exam: deferred - Integumentary Integumentary: Present: warm - Musculoskeletal Musculoskeletal: strength equal bilaterally - Psychiatric Psychiatric: cooperative, depressed - Neurologic Neurologic: moves all extremities Results - Labs CBC & Chem 7: 09/15/18 02:42 09/15/18 02:42 Labs: Laboratory Last Values WBC 3.4 K/mm3 (4.5-11.0) L 09/15/18 00:08 RBC 3.78 M/mm3 (3.65-5.03) 09/15/18 00:08 Hgb 10.9 gm/dl (10.1-14.3) 09/15/18 00:08 Hct 33.3 % (30.3-42.9) 09/15/18 00:08 MCV 88 fl (79-97) 09/15/18 00:08 MCH 29 pg (28-32) 09/15/18 00:08 MCHC 33 % (30-34) 09/15/18 00:08 RDW 20.4 % (13.2-15.2) H 09/15/18 00:08 Plt Count 116 K/mm3 (140-440) L 09/15/18 00:08 Lymph % (Auto) 21.3 % (13.4-35.0) 09/15/18 00:08 [place] % (Auto) 12.9 % (0.0-7.3) H 09/15/18 00:08 Eos % (Auto) 0.8 % (0.0-4.3) 09/15/18 00:08 Baso % (Auto) 0.9 % (0.0-1.8) 09/15/18 00:08 Lymph # 0.7 K/mm3 (1.2-5.4) L 09/15/18 00:08 [place] # 0.4 K/mm3 (0.0-0.8) 09/15/18 00:08 Eos # 0.0 K/mm3 (0.0-0.4) 09/15/18 00:08 Baso # 0.0 K/mm3 (0.0-0.1) 09/15/18 00:08 Seg Neutrophils % 64.1 % (40.0-70.0) 09/15/18 00:08 Seg Neutrophils # 2.2 K/mm3 (1.8-7.7) 09/15/18 00:08 PT 16.5 Sec. (12.2-14.9) H 09/15/18 00:08 INR 1.25 (0.87-1.13) H 09/15/18 00:08 D-Dimer 147.32 ng/mlDDU (0-234) 09/15/18 00:08 Sodium 139 mmol/L (137-145) 09/15/18 00:08 Potassium 3.2 mmol/L (3.6-5.0) L 09/15/18 00:08 Chloride 106.2 mmol/L (98-107) 09/15/18 00:08 Carbon Dioxide 17 mmol/L (22-30) L 09/15/18 00:08 Anion Gap 19 mmol/L 09/15/18 00:08 BUN 5 mg/dL (7-17) L 09/15/18 00:08 Creatinine 0.5 mg/dL (0.7-1.2) L 09/15/18 00:08 Estimated GFR > 60 ml/min 09/15/18 00:08 BUN/Creatinine Ratio 10 % 09/15/18 00:08 Glucose 123 mg/dL (65-100) H 09/15/18 00:08 Calcium 9.0 mg/dL (8.4-10.2) 09/15/18 00:08 Total Bilirubin 1.20 mg/dL (0.1-1.2) 09/15/18 00:08 AST 55 units/L (5-40) H 09/15/18 00:08 ALT 22 units/L (7-56) 09/15/18 00:08 Alkaline Phosphatase 115 units/L (35-129) 09/15/18 00:08 Total Creatine Kinase 91 units/L (30-135) 09/15/18 00:08 CK-MB (CK-2) 1.9 ng/mL (0.0-4.0) 09/15/18 00:08 CK-MB (CK-2) Rel Index 2.0 (0-4) 09/15/18 00:08 Troponin T < 0.010 ng/mL (0.00-0.029) 09/15/18 00:08 NT-Pro-B Natriuret Pep 257.6 pg/mL (0-900) 09/15/18 01:11 Total Protein 6.7 g/dL (6.3-8.2) 09/15/18 00:08 Albumin 3.5 g/dL (3.9-5) L 09/15/18 00:08 Albumin/Globulin Ratio 1.1 % 09/15/18 00:08 Assessment and Plan Assessment and plan: 1. Chest pain r/o ACS 2. CAD/[place] s/p stent placement 3. COPD home O2 dependant 4. Acute dyspnea 5. H/o tobbaco used disorder 6. HTN (BP stable) 7. HIV (viral undetectable) 8. H/o hep C 9. Neutropenia (likely due to HIV infection) 10. Thrombocytopenia (due to HIV infection) 11. Hypokalemia Plan: Pt is [facility] Continue cardiac enzymes q6hr x2 more Stress test in am Continue nebulizer treatmemt PRN for SOB Pulmocort daily O2 to keep sat > 92% Solumedrol 60mg Q6hr Replace potassium Monitor CBC/K level Resume home meds DVT prophylaxis with Lovenox Case management assisted with home Care was discussed with patient voiced understanding Patient's condition and plan of care discussed with Dr. Campoverde Advance Directives: Yes VTE prophylaxis?: Chemical Plan of care discussed with patient/family: Yes <VI CAMPOVERDE - Last Filed: 09/15/18 05:40> History of Present Illness Date of admission: 09/15/18 02:20 Medications and Allergies Active Meds: Active Medications Acetaminophen (Tylenol) 650 mg PO Q4H PRN PRN Reason: Pain MILD(1-3)/Fever >100.5/[place] Albuterol (Proventil) 2.5 mg IH Q6HRT ARLENE Aspirin (Ecotrin) 325 mg PO QDAY [place]ENE Methylprednisolone Sodium Succinate (Solu-Medrol) 60 mg IV Q8HR [place] Morphine Sulfate (Morphine) 2 mg IV Q4H PRN PRN Reason: Pain, Moderate (4-6) Nitroglycerin (Nitrostat) 0.4 mg SL Q5M PRN PRN Reason: Chest Pain Ondansetron HCl (Zofran) 4 mg IV Q8H PRN PRN Reason: Nausea And Vomiting Sodium Chloride (Sodium Chloride Flush Syringe 10 Ml) 10 ml IV BID ARLENE Sodium Chloride (Sodium Chloride Flush Syringe 10 Ml) 10 ml IV PRN PRN PRN Reason: LINE FLUSH Exam - Constitutional Vitals: Temp Pulse Resp BP Pulse Ox 98.0 F 92 H 22 117/72 90 09/15/18 04:39 09/15/18 04:39 09/15/18 04:43 09/15/18 04:39 09/15/18 04:39 Results - Labs CBC & Chem 7: 09/15/18 02:42 09/15/18 02:42 Labs: Laboratory Last Values WBC 2.7 K/mm3 (4.5-11.0) L 09/15/18 02:42 RBC 3.59 M/mm3 (3.65-5.03) L 09/15/18 02:42 Hgb 10.3 gm/dl (10.1-14.3) 09/15/18 02:42 Hct 31.8 % (30.3-42.9) 09/15/18 02:42 MCV 89 fl (79-97) 09/15/18 02:42 MCH 29 pg (28-32) 09/15/18 02:42 MCHC 33 % (30-34) 09/15/18 02:42 RDW 20.1 % (13.2-15.2) H 09/15/18 02:42 Plt Count 104 K/mm3 (140-440) L 09/15/18 02:42 Lymph % (Auto) 21.3 % (13.4-35.0) 09/15/18 00:08 [place] % (Auto) 12.9 % (0.0-7.3) H 09/15/18 00:08 Eos % (Auto) 0.8 % (0.0-4.3) 09/15/18 00:08 Baso % (Auto) 0.9 % (0.0-1.8) 09/15/18 00:08 Lymph # 0.7 K/mm3 (1.2-5.4) L 09/15/18 00:08 [place] # 0.4 K/mm3 (0.0-0.8) 09/15/18 00:08 Eos # 0.0 K/mm3 (0.0-0.4) 09/15/18 00:08 Baso # 0.0 K/mm3 (0.0-0.1) 09/15/18 00:08 Seg Neutrophils % 64.1 % (40.0-70.0) 09/15/18 00:08 Seg Neutrophils # 2.2 K/mm3 (1.8-7.7) 09/15/18 00:08 PT 16.5 Sec. (12.2-14.9) H 09/15/18 00:08 INR 1.25 (0.87-1.13) H 09/15/18 00:08 D-Dimer 147.32 ng/mlDDU (0-234) 09/15/18 00:08 Sodium 139 mmol/L (137-145) 09/15/18 02:42 Potassium 3.3 mmol/L (3.6-5.0) L 09/15/18 02:42 Chloride 105.5 mmol/L (98-107) 09/15/18 02:42 Carbon Dioxide 20 mmol/L (22-30) L 09/15/18 02:42 Anion Gap 17 mmol/L 09/15/18 02:42 BUN 5 mg/dL (7-17) L 09/15/18 02:42 Creatinine 0.6 mg/dL (0.7-1.2) L 09/15/18 02:42 Estimated GFR > 60 ml/min 09/15/18 02:42 BUN/Creatinine Ratio 8 % 09/15/18 02:42 Glucose 113 mg/dL (65-100) H 09/15/18 02:42 Calcium 8.7 mg/dL (8.4-10.2) 09/15/18 02:42 Total Bilirubin 1.20 mg/dL (0.1-1.2) 09/15/18 00:08 AST 55 units/L (5-40) H 09/15/18 00:08 ALT 22 units/L (7-56) 09/15/18 00:08 Alkaline Phosphatase 115 units/L (35-129) 09/15/18 00:08 Total Creatine Kinase 91 units/L (30-135) 09/15/18 00:08 CK-MB (CK-2) 1.9 ng/mL (0.0-4.0) 09/15/18 00:08 CK-MB (CK-2) Rel Index 2.0 (0-4) 09/15/18 00:08 Troponin T < 0.010 ng/mL (0.00-0.029) 09/15/18 00:08 NT-Pro-B Natriuret Pep 257.6 pg/mL (0-900) 09/15/18 01:11 Total Protein 6.7 g/dL (6.3-8.2) 09/15/18 00:08 Albumin 3.5 g/dL (3.9-5) L 09/15/18 00:08 Albumin/Globulin Ratio 1.1 % 09/15/18 00:08 Triglycerides 82 mg/dL (2-149) 09/15/18 02:42 Cholesterol 96 mg/dL (50-199) 09/15/18 02:42 LDL Cholesterol Direct 57 mg/dL (50-130) 09/15/18 02:42 HDL Cholesterol 23 mg/dL (40-59) L 09/15/18 02:42 Cholesterol/HDL Ratio 4.17 % 09/15/18 02:42 Assessment and Plan Assessment and plan: 53-year-old woman with history of HIV, hypertension, COPD on home oxygen, depression comes emergency room with complaints of shortness breath, chest pain after walking when out. Describes it as pressure in the epigastric area, constant, intensity 5/10, no radiation, cannot identify exacerbating or relieving factor. Patient seen and examined, agree with plan as discussed above
[2018-09-15] MEDS ORDERED: TYLENOL PO PRN (02:20)
[2018-09-15] MEDS ORDERED: ZOFRAN IV PRN (02:20)
[2018-09-15] MEDS ORDERED: NITROSTAT SL PRN (02:20)
[2018-09-15] MEDS ORDERED: SODIUM CHLORIDE FLUSH SYRINGE 10 ML IV PRN ×2 (02:20)
[2018-09-15] MEDS ORDERED: MORPHINE IV PRN (02:20)
[2018-09-15 02:57] LABS: Hematocrit 31.8 % (30.3-42.9); Hemoglobin 10.3 gm/dl (10.1-14.3); Mean Corpuscular HGB Conc 33 % (30-34); Mean Corpuscular Volume 89 fl (79-97); Platelet Count 104 K/mm3 (140-440); Red Blood Count 3.59 M/mm3 (3.65-5.03)
[2018-09-15 02:59] LABS: Red Cell Distribution Width 20.1 % (13.2-15.2)
[2018-09-15 03:17] LABS: BUN/Creatinine Ratio 8; Blood Urea Nitrogen 5 mg/dL (7-17); Calcium 8.7 mg/dL (8.4-10.2); Hemolysis Index 31
[2018-09-15 03:43] LABS: Chol/HDL Ratio 4.17 %
[2018-09-15] MEDS ORDERED: LOVENOX SUB-Q ONE (04:23)
[2018-09-15] MEDS: SOLU-Medrol IV SCH ×3 (05:21→22:23)
[2018-09-15 06:18] LABS: Anisocytosis 1+; Basophils % (Manual) 0 % (0.0-1.8); Eosinophils % (Manual) 0 % (0.0-4.3); Total Cells Counted 100
[2018-09-15 06:19] LABS: Platelet Estimate Consistent w Auto
[2018-09-15] MEDS ORDERED: celeXA PO SCH (10:00)
[2018-09-15] MEDS ORDERED: EFFEXOR XR PO SCH (10:00)
[2018-09-15] MEDS ORDERED: LEXISCAN IV ONE ×2 (10:29→10:31)
[2018-09-15] MEDS: PROVENTIL IH SCH ×3 (11:04→20:10)
[2018-09-15] MEDS: LEVAQUIN PO SCH (12:17)
[2018-09-15] MEDS: BUSPAR PO SCH ×2 (12:17→22:23)
[2018-09-15] MEDS: SODIUM CHLORIDE FLUSH SYRINGE 10 ML IV SCH ×2 (12:18→22:28)
--- NOTE | 2018-09-15 16:01 | Discharge Summary ---
Providers - Providers Date of Admission: 09/15/18 02:20 Date of discharge: 09/15/18 Attending physician: MADHURI MARSHALL 09/15/18 Consult to Cardiac Rehabilitation [CONS] Routine Reason For Exam: Phase I [facility] Condition: Fair Pertinent studies: MPI stress test, CXR Hospital course: Patient is a 53-year-old female with past medical history of CAD s/p stent, hypertension, HIV infection (viral load undetectable), hepatitis C, cigarette smoking disorders, COPD home O2 dependent who was brought to the ER by EMS with complaints of chest pain and shortness of breath just prior to arrival. Her CE was normal, s/p stress test and that was normal. She was repleted for low K. She was discharged home in stable condition with outpt followup. Discharge diagnosis: 1. Chest pain likely from GERD, treat with PPI 2. CAD/ND s/p stent placement 3. COPD home O2 dependant 4. Acute on chronic hypoxic respiratory failure, due to being off from O2 5. H/o tobbaco used disorder 6. HTN (BP stable) 7. HIV (viral undetectable) 8. H/o hep C 9. Neutropenia (likely due to HIV infection) 10. Thrombocytopenia (due to HIV infection) 11. Hypokalemia, repleted Disposition: DC-50 TO HOSPICE (HOME) Time spent for discharge: 34 minutes Core Measure Documentation - Palliative Care Palliative Care/ Comfort Measures: Hospice Care - Core Measures Any of the following diagnoses?: none Exam - Physical Exam Narrative exam: General appearance: Present: no acute distress, well-nourished - EENT Eyes: PERRL, EOM intact ENT: hearing intact, clear oral mucosa Ears: bilateral: normal - Neck Neck: supple, normal ROM - Respiratory Respiratory effort: normal Respiratory: bilateral: CTA - Cardiovascular Rhythm: regular Heart Sounds: Present: S1 & S2. Absent: gallop, rub Extremities: pulses intact, No edema, normal color, Full ROM - Gastrointestinal General gastrointestinal: Present: soft, non-tender, non-distended, normal bowel sounds - Integumentary Integumentary: clear, warm, dry - Musculoskeletal Musculoskeletal: 1, strength equal bilaterally - Neurologic Neurologic: moves all extremities - Psychiatric Psychiatric: memory intact, appropriate mood/affect, intact judgment & insight - Constitutional Vitals: Temp Pulse Resp BP Pulse Ox 98.2 F 91 H 20 142/82 91 09/15/18 13:49 09/15/18 15:35 09/15/18 15:35 09/15/18 13:49 09/15/18 13:49 Plan Activity: fall precautions Weight Bearing Status: Non-Weight Bearing Diet: low fat, low salt Follow up with: PRIMARY CARE, [Referring] - 3-5 Days Prescriptions: AtorvaSTATin [Lipitor] 40 mg PO QHS #30 tab Aspirin EC [Aspirin Enteric Coated TAB] 81 mg PO QDAY #30 tablet. ALBUTEROL Inhaler (OR & NICU) [Proair] 2 puff IH QID PRN 30 Days #30 inhalation PRN Reason: Shortness Of Breath Budesoni/Formotero 160-4.5(Nf) [Symbicort 160-4.5 (Nf)] 2 puff IH BID 30 Days inha
--- NOTE | 2018-09-15 21:52 | Treadmill Report ---
THALLIUM STRESS TEST LEFT VENTRICLE: Left ventricular chamber size is within normals. Perfusion study demonstrates a small fixed anteroapical defect of mild intensity, no reversibility in the resting study. Gated analysis demonstrates normal left ventricular systolic function, ejection fraction 66%. CONCLUSION: Small fixed anteroapical defect likely due to breast attenuation artifact, otherwise normal study. No ischemia demonstrated on this study. JOB# [id number] CA/NTS
[2018-09-16] MEDS: PROVENTIL IH SCH ×3 (01:31→14:29)
[2018-09-16] MEDS: SOLU-Medrol IV SCH ×2 (05:35→15:14)
[2018-09-16] MEDS ORDERED: ECOTRIN PO SCH (10:00)
[2018-09-16] MEDS: LEVAQUIN PO SCH (11:39)
[2018-09-16] MEDS: BUSPAR PO SCH (11:41)
[2018-09-16] MEDS: SODIUM CHLORIDE FLUSH SYRINGE 10 ML IV SCH (11:41)
[2018-09-16] MEDS ORDERED: K-DUR PO ONE (14:56)
--- NOTE | 2018-09-16 14:56 | Progress Note ---
Assessment and Plan 1. Chest pain likely from GERD 2. CAD/[place] s/p stent placement 3. COPD home O2 dependant 4. Acute on chronic hypoxic respiratory failure, due to being off from O2 5. H/o tobbaco used disorder 6. HTN (BP stable) 7. HIV (viral undetectable) 8. H/o hep C 9. Neutropenia (likely due to HIV infection) 10. Thrombocytopenia (due to HIV infection) 11. Hypokalemia, replete - Stress test was normal today, clear for discharge, need home hospice and home O2 setup. Cont current med. Subjective Date of service: 09/15/18 Interval history: patient seen and examined, denies any chest pain pending placement Objective - Constitutional Vitals: Vital Signs - 12hr 09/16/18 09/16/18 09/16/18 05:20 07:54 07:58 Temperature 98.0 F 97.9 F Pulse Rate 94 H 102 H Pulse Rate [ 92 H Posterior Bilateral Throughout] Respiratory 18 18 Rate Respiratory 20 Rate [Posterior Bilateral Throughout] Blood Pressure 127/69 130/71 O2 Sat by Pulse 94 92 92 Oximetry 09/16/18 09/16/18 08:02 11:39 Temperature 97.7 F Pulse Rate 94 H Pulse Rate [ 91 H Posterior Bilateral Throughout] Respiratory 18 Rate Respiratory 20 Rate [Posterior Bilateral Throughout] Blood Pressure 128/70 O2 Sat by Pulse 87 Oximetry General appearance: Present: no acute distress, well-nourished - EENT Eyes: PERRL, EOM intact ENT: hearing intact, clear oral mucosa Ears: bilateral: normal - Neck Neck: supple, normal ROM - Respiratory Respiratory effort: normal Respiratory: bilateral: CTA - Cardiovascular Rhythm: regular Heart Sounds: Present: S1 & S2. Absent: gallop, rub Extremities: pulses intact, No edema, normal color, Full ROM - Gastrointestinal General gastrointestinal: Present: soft, non-tender, non-distended, normal bowel sounds - Integumentary Integumentary: clear, warm, dry - Musculoskeletal Musculoskeletal: 1, strength equal bilaterally - Neurologic Neurologic: moves all extremities - Psychiatric Psychiatric: memory intact, appropriate mood/affect, intact judgment & insight - Labs CBC & Chem 7: 09/15/18 02:42 09/15/18 02:42
--- NOTE | 2018-09-16 14:57 | Event Note ---
Date: 09/15/18
[2018-09-16 15:50] VITALS: BP 134/62
== END 2018-09-16 19:15 | disposition hospice, home (50) | DRG 189 ==
LOC: ED 23:17 → 4A 09-15 02:20
PROVIDERS: ADMIT Internal Medicine; ATTEND Internal Medicine
DX: J96.21 Acute and chronic respiratory failure with hypoxia (principal); B20 Human immunodeficiency virus [HIV] disease; B19.20 Unspecified viral hepatitis C without hepatic coma; I10 Essential (primary) hypertension; K21.9 Gastro-esophageal reflux disease without esophagitis; F17.210 Nicotine dependence, cigarettes, uncomplicated; E87.6 Hypokalemia; D69.6 Thrombocytopenia, unspecified; I25.10 Atherosclerotic heart disease of native coronary artery without angina pectoris; Z95.5 Presence of coronary angioplasty implant and graft; Z90.710 Acquired absence of both cervix and uterus; Z99.81 Dependence on supplemental oxygen; Z71.6 Tobacco abuse counseling
CPT/HCPCS: 36415; 71045; 78452; 80048; 80053; 80061; 82550; 82553; 83880; 84484; 85007; 85025; 85379; 85610; 93005; 93010; 93017; 94640; 94760; 96374; 96375; 99285; 99406; G0378; A9502; J1650; J2405; J2785; J2930; J3010

== ENCOUNTER 2018-09-20 14:56 | Emergency (ER) | payer SELFPAY | END 2018-09-20 15:07 | disposition left against medical advice (07) | LOC: ED 14:56 ==